=== PATIENT | female | born 1965 | race Caucasian/White ===

== ENCOUNTER → 2018-03-23 17:30 | Outpatient (CLI) | payer OTHER, SELFPAY ==
--- NOTE | 2018-03-23 17:28 | BI_ITS ---
MAMMOGRAPHY - BILATERAL SCREENING REASON FOR EXAM: Female, 52 years old. Routine annual screening examination. PERTINENT HISTORY: Sister with breast cancer. Mother with breast cancer. TECHNIQUE: Digital bilateral breast verena (3D mammographic acquisition) in the CC and MLO projections. 2-D mediolateral oblique (MLO) and craniocaudad (CC) views of both breasts were obtained. CAD: Full Field Digital Mammography with Computer Added Detection was performed. COMPARISON: Comparison is made with prior abdomen examination dated February 13, 2017. FINDINGS: Breast Composition: There are scattered areas of fibroglandular density. There are no dominant masses or suspicious calcifications. No other significant abnormalities are identified. There has been no significant change since the prior study. BI/SCREENING MAMM (CAD), BILAT IMPRESSION: Stable bilateral screening mammogram. Yearly follow-up mammogram recommended. (A) ASSESSMENT CATEGORY: BIRADS Category 1: Negative. A letter regarding these results will be sent to the patient by the facility within 30 days. Approximately 10% of breast cancers are not detected by mammography. A normal mammogram should not delay biopsy of a clinically suspicious abnormality. [id number] Electronically Signed: Adriel Bailey MD at 14:13 EDT Tel [phone], Service support ,
== END ==
DX: Z12.31 Encounter for screening mammogram for malignant neoplasm of breast (principal)
CPT/HCPCS: 77063; 77067

== ENCOUNTER → 2019-09-29 08:17 | Outpatient (CLI) | payer OTHER, SELFPAY ==
--- NOTE | 2019-09-29 08:22 | BI_ITS ---
MAMMOGRAPHY - BILATERAL SCREENING REASON FOR EXAM: Female, 53 years old. Routine annual screening examination. PERTINENT HISTORY: Sister with breast cancer. Mother with breast cancer. TECHNIQUE: Digital bilateral breast mikael (3D mammographic acquisition) in the CC and MLO projections. 2-D mediolateral oblique (MLO) and craniocaudad (CC) views of both breasts were obtained. CAD: Full Field Digital Mammography with Computer Added Detection was performed. COMPARISON: Comparison is made with prior examination dated March 23, 2018. FINDINGS: Breast Composition: There are scattered areas of fibroglandular density. There are no dominant masses or suspicious calcifications. No other significant abnormalities are identified. There has been no significant change since the prior study. BI/SCREEN MAMM (CAD) W/MIKAEL BILAT IMPRESSION: Stable bilateral screening mammogram. Yearly follow-up mammogram recommended. (A) ASSESSMENT CATEGORY: BIRADS Category 1: Negative. A letter regarding these results will be sent to the patient by the facility within 30 days. Approximately 10% of breast cancers are not detected by mammography. A normal mammogram should not delay biopsy of a clinically suspicious abnormality. [id number] Electronically Signed: Adriel Bailey, at 10:23 EDT , Service support ,
== END ==
DX: Z12.31 Encounter for screening mammogram for malignant neoplasm of breast (principal)
CPT/HCPCS: 77063; 77067

== ENCOUNTER 2021-06-21 12:55 | Outpatient (CLI) | payer BC, SELFPAY ==
--- NOTE | 2021-06-21 12:59 | BI_ITS ---
MAMMOGRAPHY - BILATERAL SCREENING REASON FOR EXAM: Female, 55 years old. Routine annual screening examination. PERTINENT HISTORY: Sister with breast cancer. Mother with breast cancer. TECHNIQUE: Digital bilateral breast mikael (3D mammographic acquisition) in the CC and MLO projections. 2-D mediolateral oblique (MLO) and craniocaudad (CC) views of both breasts were obtained. CAD: Full Field Digital Mammography with Computer Added Detection was performed. COMPARISON: Comparison is made with prior study dated 09/29/2019 and 03/23/2018. FINDINGS: Breast Composition: There are scattered areas of fibroglandular density. There are no dominant masses or suspicious calcifications. No other significant abnormalities are identified. There has been no significant change since the prior study. BI/SCRN MAMM (CAD)W/MIKAEL BILAT IMPRESSION: Stable bilateral screening mammogram. Yearly follow-up mammogram recommended. (A) ASSESSMENT CATEGORY: BIRADS Category 1: Negative. A letter regarding these results will be sent to the patient by the facility within 30 days. Approximately 10% of breast cancers are not detected by mammography. A normal mammogram should not delay biopsy of a clinically suspicious abnormality. [id number] Electronically Signed: Adriel Bailey MD at 14:59 EST ,
== END 2021-06-21 23:59 | disposition home or self-care (01) ==
PROVIDERS: Visit Provider Family Medicine
DX: Z12.31 Encounter for screening mammogram for malignant neoplasm of breast (principal)
CPT/HCPCS: 77063; 77067

== ENCOUNTER → 2023-01-20 | Outpatient (CLI) | payer OTHER, SELFPAY ==
--- NOTE | 2023-01-20 16:07 | BI_ITS ---
MAMMOGRAPHY - BILATERAL SCREENING REASON FOR EXAM: Female, 57 years old. Routine annual screening examination. PERTINENT HISTORY: Sister with breast cancer. Mother with breast cancer. TECHNIQUE: Digital bilateral breast mikael (3D mammographic acquisition) in the CC and MLO projections. 2-D mediolateral oblique (MLO) and craniocaudad (CC) views of both breasts were obtained. CAD: Full Field Digital Mammography with Computer Added Detection was performed. COMPARISON: Screening mammogram from 06/21/2021, 09/29/2019. FINDINGS: Breast Composition: The breasts are heterogeneously dense, which may obscure small masses. There are no dominant masses or suspicious calcifications. No other significant abnormalities are identified. There has been no significant change since the prior study. BI/SCRN MAMM (CAD)W/MIKAEL BILAT IMPRESSION: Stable bilateral screening mammogram. Yearly follow-up mammogram recommended. (A) ASSESSMENT CATEGORY: BIRADS Category 1: Negative. A letter regarding these results will be sent to the patient by the facility within 30 days. Approximately 10% of breast cancers are not detected by mammography. A normal mammogram should not delay biopsy of a clinically suspicious abnormality. Electronically Signed: Steve Will DO at 10:00 EDT ,
== END | disposition home or self-care (01) ==
LOC: OPBI 16:00
DX: Z12.31 Encounter for screening mammogram for malignant neoplasm of breast (principal)
CPT/HCPCS: 77063; 77067

== ENCOUNTER → 2025-02-23 | Outpatient (CLI) | payer BC, SELFPAY ==
--- NOTE | 2025-02-23 16:49 | BI_ITS ---
EXAM: SCRN MAMM (CAD)W/MIKAEL BILAT DATE: 02/23/2025 CLINICAL HISTORY: F, Age 59 y/o , SCREEN TECHNIQUE: Procedure Code: [id number] Modality: MG Procedure: SCRN MAMM (CAD)W/MIKAEL BILAT COMPARISON: Prior exam(s) dated 01/20/2023, 06/21/2021, 09/29/2019. FINDINGS: TISSUE DENSITY: There are scattered areas of fibroglandular density. Bilateral Breast Mammographic Findings: No significant masses, calcifications or other abnormalities are identified. BI/SCRN MAMM (CAD)W/MIKAEL BILAT IMPRESSION: There is no mammographic evidence of malignancy. OVERALL FINAL ASSESSMENT BI-RADS 1: NEGATIVE. RECOMMENDATION: Routine annual follow-up in 1 Year Additional Recommendation none A letter with findings and recommendations will be mailed to the patient. Reading Location: [id number]
--- NOTE | 2025-02-23 16:49 | BI_ITS ---
EXAM: SCRN MAMM (CAD)W/MIKAEL BILAT DATE: 02/23/2025 CLINICAL HISTORY: F, Age 59 y/o , SCREEN TECHNIQUE: Procedure Code: [id number] Modality: MG Procedure: SCRN MAMM (CAD)W/MIKAEL BILAT COMPARISON: Prior exam(s) dated 01/20/2023, 06/21/2021, 09/29/2019. FINDINGS: TISSUE DENSITY: There are scattered areas of fibroglandular density. Bilateral Breast Mammographic Findings: No significant masses, calcifications or other abnormalities are identified. BI/SCRN MAMM (CAD)W/MIKAEL BILAT IMPRESSION: There is no mammographic evidence of malignancy. OVERALL FINAL ASSESSMENT BI-RADS 1: NEGATIVE. RECOMMENDATION: Routine annual follow-up in 1 Year Additional Recommendation none A letter with findings and recommendations will be mailed to the patient. Reading Location: [id number]
--- OUTSIDE RECORDS SUMMARY | 2025-02-24 07:13 | XMS RPT_ITS | CCD ---
Author Organization [facility] Informat ion Partnership [employer]GG [employer] [facility] Care Team Providers Care Hydrogenation Operator Name Role Phone Emma Buchanan Primary Care Physician [phone] Emma Buchanan DO Primary Care Provider UnaMIRNA Maguire Attending Unavailable CLEOPATRA BOWIE Attending Unavailable Tyree Sheppard MD Primary Care Provider Cheko Way Attending Unavailable Gabbie Ayala Attending Unavailable TERESITA1 Referring Unavailable TERESITA1 Attending Unavailable TERESITA1 Primary Care Unavailable Allergies Allergy Classification Reported Allergen(s) Allergy Type Date of Onset Reaction(s) Facility (1 source) Clindamycin; Translations: [clindamycin] Drug Allergy [facility] (9 sources) Doxycycline; Translations: [doxycycline] Drug Allergy Allergy - specialty (qualifier value), Hives, Photosensitivity [facility] (9 sources) Erythromycin; Translations: [erythromycin] Drug Allergy Hives [facility] (9 sources) Sulfamethoxazole / Trimethoprim; Translations: [sulfamethoxazole-t rimethoprim] Drug Allergy Hives, Photosensitivity, Swelling [facility] (1 source) [place] Propensity to adverse reactions to substance [facility] (8 sources) Nitrofurantoin Drug Allergy Hives [facility] (8 sources) orange allergenic extract Drug Allergy 972 Anaphylaxis [facility] (1 source) Doxycycline Drug Allergy [facility] (1 source) Erythromycin Drug Allergy [facility] (1 source) Bozeman juice Drug allergy (disorder) [facility] (1 source) Sulfamethoxazole Drug Allergy [facility] (1 source) Trimethoprim Drug Allergy [facility] Medications Current Medications Medication Drug Class(es) Dates Sig (Normalized) Sig (Original) Albuterol (1 source) beta2-Adrenergic Agonist Start: 05-31-2019 take 2.5 mg by inhalation every six hours for wheezing albuterol 0.083% Inh Jolanta 3 mL 2.5 mg, 3 mL, Inhalation, q6hr for wheezing, 25 EA, Refill(s) 0, [facility] Start Date: 05/31/19 Status: Ordered albuterol 90 mcg/inh inhalation powder (1 source) Start: 05-28-2019 take 2 puff(s) by inhalation every four hours albuterol 90 mcg/inh inhalation powder See Instructions, Refill(s) 0, 2 puff(s) Inhalation q4hr Start Date: 05/28/19 Status: Ordered atenolol 25 mg oral tablet (9 sources) beta-Adrenergic Lynda Start: 08-09-2024 take 1 tablet by mouth once daily atenolol (Tenormin) 25 MG tablet Indications: High-renin essential hypertension (CMS/HCC) Take 1 tablet (25 mg) by mouth Daily 90 tablet 3 08/09/2024 Active Start: 01-08-2023 take 1 tablet by prudence th in the morning atenolol (Tenormin) 25 MG tablet Indications: High-renin essential hypertension (CMS/HCC) Take 1 tablet (25 mg) by mouth in the morning. 90 tablet 3 01/08/2023 Active Start: 01-16-2011 take 12.5 mg by mout h once daily atenolol 12.5 mg, Oral, Daily, Refills(s) 0 Start Date: 01/16/11 Status: Ordered atorvastatin 20 mg oral tablet (9 sources) HMG-CoA Reductase Inhibitor Start: 08-09-2024 take 1 tablet by mouth once daily atorvastatin (Lipitor) 20 MG tablet Indications: Mixed hyperlipidemia (CMS/HCC) Take 1 tablet (20 mg) by mouth Daily 90 tablet 3 08/09/2024 Active Start: 01-08-2023 End: 06-13-2024 take 1 tablet by mouth once daily atorvastatin (Lipitor) 20 MG tablet Indications: Mixed hyperlipidemia (CMS/HCC) Take 1 tablet (20 mg) by mouth Daily 90 tablet 3 06/13/2024 Active azithromycin 250 mg oral tablet (8 sources) Macrolide Antimicrobial Start: 05-06-2024 azithromycin (Zithromax) 250 MG tablet Indications: Non-recurrent acute suppurative otitis media of right ear without spontaneous rupture of tympanic membrane Take 2 tabs PO x 1 day then 1 tab PO daily x 4 days 6 tablet 05/06/2024 Active microencapsulated potassium chloride 10 meq extended release oral tablet (2 sources) Start: 08-11-2024 potassium chlo ride CR (Klor-Con M10) 10 MEQ ER tablet Indications: Hypokalemia Take 2 tablets (20 mEq) by mouth Daily Do not crush or chew. 180 tablet 3 08/11/2024 Active Start: 01-16-2011 take 1 tablet by prudence th once daily potassium chloride 10 mEq ER Tab 10 mEq = 1 tab(s), Oral, Daily, tab(s), Refills(s) 0 Start Date: 01/16/11 Status: Ordered spironolactone 50 mg oral tablet (9 sources) Aldosterone Antagonist Start: 08-09-2024 take 3 tablets by mouth once daily spironolactone (Aldactone) 50 MG tablet Indications: Body mass index (BMI) 25.0-25.9, adult Take 3 tablets (150 mg) by mouth Daily 270 tablet 3 08/09/2024 Active Start: 01-08-2023 take 3 tablets by mo uth in the morning spironolactone (Aldactone) 50 MG tablet Indications: Body mass index (BMI) 25.0-25.9, adult Take 3 tablets (150 mg) by mouth in the morning. 270 tablet 3 01/08/2023 Active Start: 04-17-2011 take 150 mg by mouth once daily spironolactone 150 mg, Oral, Daily, Refills(s) 0 Start Date: 04/17/11 Status: Ordered Completed/Discontinued Medications Medication Drug Class(es) Dates Sig (Normalized) Sig (Original) amoxicillin 500 mg oral capsule (1 source) Penicillin-class Antibacterial Start: 10-15-2018 End: 10-25-2018 take 1000 mg by mouth twice daily Amoxicillin Discontinued 1000 MG PO TWICE A DAY 40 October 15, 2018 12:00am October 25, 2018 12:07am Problems Active Problems Problem Classification Problem Date Documented Date Episodic/Chronic Administrative/socia l admission (2 sources) Patient encounter status; Translations: [Person consulting for explanation of examination or test findings] 07-20-2024 Episodic Conduction disorders (1 source) 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 Disorders of lipid metabolism (3 sources) Mixed hyperlipidemia; Translations: [Mixed hyperlipidemia] 05-06-2024 Chronic Essential hypertension (10 sources) High-renin essential hypertension; Translations: [Essential (primary) hypertension] Onset: 6 05-06-2024 Chronic Fluid and electrolyte disorders (1 source) Hypokalemia; Translations: [Hypokalemia] 08-11-2024 Episodic Other endocrine disorders (1 source) Hyperaldosteronism Onset: 4 08-12-2013 Chronic Other screening for suspected conditions (not mental disorders or infectious disease) (20 sources) Cancer cervix screening status; Translations: [Encounter for screening for malignant neoplasm of cervix] Onset: 4 05-05-2024 Episodic Otitis media and related conditions (3 sources) Otitis media; Translations: [Otitis media, unspecified, unspecified ear] 10-15-2018 Episodic Past or Other Problems Problem Classification Problem Date Documented Date Episodic/Chronic Malaise and fatigue (1 source) Malaise Onset: 10-02-2012 08-12-2013 Episodic Other skin disorders (1 source) Sweating Onset: 10-02-2012 10-02-2012 Episodic Syncope (1 source) Syncope Onset: 10-02-2012 08-12-2013 Episodic Unclassified (1 source) 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 05-17-2024 Results Test Name Value Interpretation Reference Range Facility Urgent Care Visit Reporton 0 06-08-2024 Urgent Care Visit Report [facility] 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: No Is patient in pain?: No Allergies doxycycline Allergy (Mild, Verified 06/08/24 17:39) Rash erythromycin base Allergy (Mild, Verified 06/08/24 17:39) Rash orange juice Allergy (Mild, Verified 06/08/24 17:39) Hives sulfamethoxazole (From Bactrim) Allergy (Mild, Verified 06/08/24 17:39) Rash trimethoprim (From Bactrim) Allergy (Mild, Verified 06/08/24 17:39) Rash Medications ???Medication ???Instructions ???Recorded ???Confirmed ???Type albuterol sulfate 90 mcg/actuation 1 - 2 puff inhalation Q4 PRN 06/08/24 06/08/24 History aerosol inhaler dyspnea amoxicillin 875 mg-potassium 1 tab PO BID #28 tabs 06/08/24 06/08/24 Rx clavulanate 125 mg tablet atenolol 25 mg tablet 25 mg PO QAM 06/08/24 06/08/24 History atorvastatin 20 mg tablet 20 mg PO QAM 06/08/24 06/08/24 History benzonatate 200 mg capsule 200 mg PO TID PRN cough #20 caps 06/08/24 06/08/24 Rx potassium chloride 10 mEq 20 meq PO QAM 06/08/24 06/08/24 History tablet,extended release(part/cryst) spironolactone 50 mg tablet mg PO 06/08/24 06/08/24 History Is last menstrual period known: No Post menopausal: Yes Patient : No Have you fallen in the past year?: No Nurse's Note: cough, congestion, worsening mucus x 5 days. denies fever, SONG, BA HPI HPI Chief Complaint: cough, congestion Details: SHEY BORRERO, is a 58 F who presents to the office today for initial evaluation at the [facility] for approximately 5-day history of progressively worsening left facial pressure/congestion with purulent postnasal drip/cough and bilateral ear pressure - though her symptoms of actually been waxing waning over the last month and a half or so. No complaints of fever, chills, myalgias, fatigue, runny nose, or nausea/vomiting/michael rrhea. No complaints of chest pain/shortness of breath/dyspnea on exertion. No close contacts with similar complaints. No other associated symptoms and no other alleviating/aggrava ting factors. ROS Const Constitutional: No other (as above) Exam Const General: cooperative, healthy appearing and no acute distress Nutritional Appearance: average body habitus Orientation: alert, awake and oriented x3 HENMT Head: normal to inspection Ears: hearing grossly normal bilaterally, external ears normal, TM's normal bilaterally and EAC's normal Nose: external nose normal, nares normal, septum normal and no nasal discharge Face and sinus: normal facial exam, sinuses nontender (Though left maxillary fullness to palpation) and face symmetric Mouth: oral mucosae normal, lip normal, tongue normal and oropharynx normal Throat: posterior oropharynx normal, tonsils normal, uvula midline and postnasal drainage (Purulent) Eyes General: appearance normal, both eyes and all related structures Neck Neck: normal visual inspection, full ROM, no meningeal signs, supple and lymphadenopathy (Bilateral anterior cervical lymph node swelling/tender to palpation) Neck mass: No Thyroid: thyroid normal Chest Chest palpation inspection: normal inspection of the chest Resp Effort Inspection: normal respiratory effort and able to speak in complete sentences with dry nonproductive cough Auscultation: Bilateral: Clear to Auscultation Cardio Palpation: normal PMI Rate: regular rate Rhythm: regular rhythm Heart Sounds: S1 normal, S2 normal, no gallops, no murmurs and no rubs Pulses: radial pulses present GI Inspection: normal to inspection Skin General: no rashes or lesions noted Neuro General: patient alert, patient awake and patient oriented x3 Cognition: normal cognition Speech: speech normal Psych Appearance: grossly normal Mental Status: mental status grossly normal Mood: congruent mood Affect: normal affect Speech and Movement: speech and movement normal Attitude: cooperative Diagnoses Acute maxillary sinusitis, unspecified J01.00 Assessment and Plan Assessment and Plan (1) Acute maxillary sinusitis, unspecified: Status: Acute Plan: - w/ cough Augmentin and benzonatate as prescribed today. Supportive measures as instructed today. Follow-up with PCP in 3 to 5 days should symptoms not improve, sooner (more content not included)... Normal [facility] HPV GENOTYPES 16,18/45on HPV 16 RNA Not detected Normal NOT DETECTED [facility] Comment on above: Performed By: #### 9 182, [id number] #### [facility] [address], [address] [place] [address] Global Human Resources Director: Dallas Sanchez MD HPV 18/45 RNA Not detected Normal NOT DETECTED [facility] Comment on above: Result Comment: Meth odology: Log Cooker Mediated Amplification Cervical sources are required for HPV testing. If a vaginal source from a patient who has had a total hysterectomy with removal of cervix was submitted, please contact the testing laboratory for alternative testing options. Performed By: #### 9 182, [id number] #### [facility] [address], [address] [place] [address] Global Human Resources Director: Dallas Sanchez MD THINPREP TIS PAP AND HPV mRN A E6/E7 WITH REFLEX TO HPV 16,18/45on 05-11-2024 CLINICAL INFORMATION: Normal [facility] Comment on above: Order Comment: FASTI NG:UNKNOWN FASTING: UNKNOWN Result Comment: BABS LEBLANC Performed By: #### 9 182, [id number] #### [facility] [address], [address] [place] [address] Global Human Resources Director: Dallas Sanchez MD COMMENT Normal [facility] Comment on above: Order Comment: FASTI NG:UNKNOWN FASTING: UNKNOWN Result Comment: EXPL ANATORY NOTE: The Pap is a screening test for cervical cancer. It is not a diagnostic test and is subject to false negative and false positive results. It is most reliable when a satisfactory sample, regularly obtained, is submitted with relevant clinical findings and history, and when the Pap result is evaluated along with historic and current clinical information. Performed By: #### 9 182, [id number] #### [facility] [place] [address] Global Human Resources Director: Dallas Sanchez MD COMMENT: Normal [facility] Comment on above: Order Comment: FASTI NG:UNKNOWN FASTING: UNKNOWN Result Comment: This Pap test has been evaluated with computer assisted technology. Performed By: #### 9 182, [id number] #### [facility] [place] [address] Global Human Resources Director: Dallas Sanchez MD BUCKLE STRAP DRUM OPERATOR: Normal [facility] Comment on above: Order Comment: FASTI NG:UNKNOWN FASTING: UNKNOWN Result Comment: DAA, CT(ASCP) CT Screening Location: [place] [address] Performed By: #### 9 182, [id number] #### [facility] [place] [address] Global Human Resources Director: Dallas Sanchez MD HPV mRNA E6/E7 Detected Abnormal Not Detected [facility] Comment on above: Order Comment: FASTI NG:UNKNOWN FASTING: UNKNOWN Result Comment: Meth odology: Log Cooker-Mediated Amplification This assay detects E6/E7 viral messenger RNA (mRNA) from 14 high-risk HPV types (16,18,31,33,35,39,45,51,52,56,58,59,66,68). Cervical sources are required for HPV testing. If a vaginal source from a patient who has had a total hysterectomy with removal of cervix was submitted, please contact the testing laboratory for alternative testing options. For additional information, please refer to http://education.Freedcamp/faq/NJO294f4 (This link if provided for information/ educational purposes only.) Performed By: #### 9 182, [id number] #### [facility] [place] [address] Global Human Resources Director: Dallas Sanchez MD INFECTION: Normal [facility] Comment on above: Order Comment: FASTI NG:UNKNOWN FASTING: UNKNOWN Result Comment: Shif t in vaginal lamine suggestive of bacterial vaginosis. Performed By: #### 9 182, [id number] #### [facility] [place] [address] Global Human Resources Director: Dallas Sanchez MD INTERPRETATION/RESUL T: Normal [facility] Comment on above: Order Comment: FASTI NG:UNKNOWN FASTING: UNKNOWN Result Comment: Cyto logy Results: Negative for intraepithelial lesion or malignancy. Performed By: #### 9 1825, 16424 #### [facility] [address], [address] [place] [address] Global Human Resources Director: Dallas Sanchez MD LMP: Normal [facility] Comment on above: Order Comment: FASTI NG:UNKNOWN FASTING: UNKNOWN Result Comment: N/G Performed By: #### 9 1825, [id number] #### [facility] [address], [address] [place] [address] Global Human Resources Director: Dallas Sanchez MD PREV. BX: Normal [facility] Comment on above: Order Comment: FASTI NG:UNKNOWN FASTING: UNKNOWN Result Comment: N/G Performed By: #### 9 1825, [id number] #### [facility] of [address], [address] [place] [address] Global Human Resources Director: Dallas Sanchez MD PREV. PAP: Normal [facility] Comment on above: Order Comment: FASTI NG:UNKNOWN FASTING: UNKNOWN Result Comment: N/G Performed By: #### 9 1825, 79711 #### [facility] [address], [address] [place] [address] Global Human Resources Director: Dallas Sanchez MD REVIEW BUCKLE STRAP DRUM OPERATOR: Normal [facility] Comment on above: Order Comment: FASTI NG:UNKNOWN FASTING: UNKNOWN Result Comment: LLT, CT(ASCP) CT screening location: [place] [address]. Performed By: #### 9 1825, 91141 #### [facility] [address], [address] [place] [address] Global Human Resources Director: Dallas Sanchez MD SOURCE: Normal [facility] Comment on above: Order Comment: FASTI NG:UNKNOWN FASTING: UNKNOWN Result Comment: Vagi na, Cervix Performed By: #### 9 1825, 20121 #### [facility] [address], [address] [place] [address] Global Human Resources Director: Dallas Sanchez MD STATEMENT OF ADEQUACY: Normal [facility] Comment on above: Order Comment: FASTI NG:UNKNOWN FASTING: UNKNOWN Result Comment: Sati sfactory for evaluation. Endocervical/transformation zone component present. Performed By: #### 9 1826, [id number] #### [facility] [address], [address] [place] [address] Global Human Resources Director: Dallas Sanchez MD Coding Summary.on 10-03-2021 Coding Summary. [id number] MSc5eAo+PGhlYWQ+PE1 CCTHfM54uqKZnjF0HP5 tDWG2FDPFSKKPRKV5VY N9cfPX5FJpcR3AuqnUr GjqhrCCqZF80FMv3WOM 4rFnmDJmxvW2nwXLeE1 e2XuTeDQ20jM92UHhyT PHbJvA2WcYzpnbjmMQc G6euQeBgmTZzLby+PHR hYmxlIHdpZHRoPScxMD TmCqSptZtjLU3kVv8nH GVyLWNvbGxhcHNlOiBj n1ifEMQaRYsiAX7fhNa qD4MtmFR9RHDuu9g8Hw 48dHI+MWLoBJD9qLspF Pxcd645HcWdx6qgRQU4 tACxJMgqPEN8F76eb8M 6KILqIYBeGGX3fYM1zW 1eaTrzagyyA6SmjHSjF fW1SYU9gJTsbL1hoFuw crkqwA6qLoc+P96LAO1 NUKZRXH9LEyw8H2WwRl wvdHI+PM76AIRsNX32e MQulAAgb7lmhFr4ZqCy FZWlEHT6dShpRCqfx9I kKKLlK99spFXtt5F5KY MgdXzrgFGmBfTozBL5p O1fSRjbrcrjn9cvcguz Rpxeg0kcjt57zH62N23 iJKbpAQVoMDP7YZWkYF FdmHtvcj4axE1lDg8+I Ezjo2ako9wspWm1VdCv NFVmlxBkbSkrCCC4s6S vJb08L8OyeJila7ClLh i1yb24mFIed4V6qQT9L LjxWIDtoC6pMDbdAnW5 FFCzHaFbfK13vPZfKPk mZr8glLyuhFllZV2nLR OuqtzfGDMjwT9hERHdr GNqvHrqHK6pDQXctojw b766GmRqQJH4HTDpwEA vZ7VexG7fViRiWESwRL RvH3LtySIvXXuqN061O IciDeK4SZHlheXdU0Hx DMWphRbvHuQ2h2F3Is7 Ba6EsydpvTXB8NGunZF Z7XaQ3NsRiKhV1V5IgE zk2KHIcjDmwGT2cP5Vl BUHixzqkatqbmAD2HCA bMULrcO70aTTmVFcxIf 5jv3O3f737NOHuWIMtz V01Bk1vuWbkSYRyaOAQ hR6uhqsas6oauntzVrT wRAHvWIp4WDp5ZMFjvI azYyCvPZW9AbE3VTM1y BBkqX3ypJvheoqayY5x Oyc+T84obC9vSUL3BEP 6nmnrQXDnhaTzZB21GK 72Q8IlIkrasYQqaUQ+P JZayfOyyOpgDY4xTdUw q6bar4MlWEmxD1VrWGC uAPznHxa3POAeBYL2aG Q6sA7sYWAhGJmew6J3a XH7W4EqdcMlsv0mu5sy NAYrEXtfF10asSPsh8S 6PTFkoKS0SAQjwWgwLx SgxQ65Otr+PGNvbGdyb 8AwMhmtp0gdj7fvhQq1 IjMwJSIgdmFsaWduPSJ 6b4BkDa06K70vALegDA RoPSIxNSUiIHZhbGlnb b3otF1wLs2+PGNvbCB3 cLB7iA8hSZKlQuH5HDu gR871PqIomMAiGthjj2 nvd5hpxEe8XtLwPOZrz aGyvXpkMIY1c7WiHj85 X45dVCseYIGeKGDcJTW mUIDrlLncmi0kwO4rMd 8+CB8hq5arix32rG13i HI+DBLlCDB0eObcQHjq HEVvsT4bRZvjCxD0IMK oDpXjwD59sTAuRBuzLz 3gyPeykPlkYL5nFHBol cprx019RoLfl4hgLORx oHKaPPzaEEI8A43ym9P 2YICeYYQgXPC5jLL1nG 1hbGlnbjogbGVmdDsgd nUgrNlxGNllBEakU770 IHRvcDsnPlBhdGllbnQ kBhZtAXx8Y2PnRyv9LP CgpYebUK9aaOVzWXtsK h6lkEhxtJlxTB3jLZGf bataw084EhTkv3usWTL goOQtZZewCGD3Z11jx5 C5VKUoEEFjJOH0gCY9g D3crLyirvjmwYFigRwf wlMrgCxuGPkvWMkiY72 6IHRvcDsnPkJpcnRoIE SjzOR5AV19FM68lJIfr 5R6vVW8O2KxARRyqzhb opxseSM5VPKpIRYzeO8 4Ts0gaFowDs0oAXRyFT G8PYWxaTNpY6NdsO9fK gXhSYQdCZExT7EgbMEq PTylS644OJbuPvB6RSR txnIvY5PcDIVusOyiPn P6r7Y5Jo7WD1C7AU72C F57zKYqk1Z0pUE1Z1Cr PIXqdiekdcvwtJU1DDL lPIPocP76Fa5emFqcIh 7dPFXpVCY5ENSyzOObU 6YzzV7hCuBbHRKrBBVs E4DxfYGpSWiuX009WUj dQhM5QDHwokHmE7VoWZ VhcHgbKfV3a1W4Xb2XQ Yq4DV25SP17zFLsy3R9 tIY9P1WaHSImdwltvsx nsZC8FMGdYECitI95Yg 7sqVowWv5hVOEfKST5Y RYfrZPmY3GvrF9eCpTp IMQuHMYjU5AehECsIHg bT895MMusVlZ4ZYCsnh XxI2JwRINmaBwwLqG2i 6E1Ag8XWXWnTY93JNW5 kSQ0CH69SP50K2DwNyk vdGFibGU+PHRhYmxlIH dpZHRoPScxMDAlJyBzd ZxqGW5hXz8sBSDeGZLc oFohsBBbCmUbn8ooSJM qCGfgFY9bhWzxS7WilJ P2PBMkj9f8Yj00R10zQ 3JvdXA+DNUtxLW6pST5 aZ6aPnTlHxU4WOfxQ10 4SoBgjWWsWnldt6kgb4 mkeVz9UmQ2NRJqfmJuf KtpIPG5m5KiTi22V03h IHdpZHRoPSIxNSUiIHZ qkDpjib2ibU3dCu7+PG NulUP2lTN2rY1tXvBeC xF9QSciT684CvCckKEs Lidzp6zxn2kueHj1XbN bZXJysyOvsGpgEZM4d4 OhUm90N7EyxGdjt4UwC jt6tm96bHLcf2K0kFP2 Z2BrVGWhwbrrxUMadJj rQU3wEHCceazdGHUewK 0sOJSfR1m4BtSpXmN6A TehG0OozhW5KWPmgRIl NRzqJAG3D48ol9Q2NXN oDXGrUJM0bBQ4eD4cpF lnbjogbGVmdDsgdmVyd WpxLJmmHFieV743BPWa qBbrAQSoaX5fJLCuqZJ dxSbtTA6zPGQwmkjxOw tFTExFWSwgQlJFTkRBI Zc6G1EmXyo7OKSpwYgj HQ1svRTjODfwXl5rxCt fxTazTY0cBZTlwjfaBO ZitR9zVWDtfRBniEdeX R8qIIHncrosz202ElAx HRR3BTXrpJIvK1LyyL8 eRiBlBEDdYXGiY7QfoH JaTLmvS504QJzlIqV4W AMmbiPsL9OhJEPojRic TdA8h2R9Zu5xOv9qDE5 cWQT8DA94AR19cMBeg2 C8mGF2B1MwNETrvywta hwcwSG0XYHwDFSxxK76 lAVgILhoQe3lf3R0j09 0HGLyXDYfzN09Dk5qsI ahHBMkxOVZjV7albzsl 1ogbckpReOoZOHiEOd7 VVu0NGTwpRgbDcNzEFT 5IiQ0MQG9uKZgzQ6aiX dgwcsamK9xVsa+NTcgW JOimtI6Q4MkQzw6FQVm sBacMC3zlXElGQvyWp8 moMoerTrdBT8xYFGmxe xpZNPxbI4rYJTsyXQeu YhoHI9xIXMrkauaa585 LkDeEFO4ZXSqlVGmD1F fjY2eKqYcEVKpJMHeG0 YnoOWgNAhfR231CIbvY bN3GAVditKzI5UpWGFo wVerAhH9d8N7Ko8SNX1 udXW4B2LjJof0ACBmwG nwYQ6tyBNsKKlfLu2ps QhrnWfxHI0rOBPizjyd QAUleL4pMWTteQHqwRf tDN5qZNEayxfky074Iu XcSYH8NPReaFNmB7Qif J1uKnNmQGRwIEAjI6Hf pLMtBFqrB937CSdsGnH 1RCAyjoYrX9IqSGZhcE wxObK9a1W8Uq4KeSDiY PEaDT51TE85FZ80W1Pb PjwvdGFibGU+PHRhYmx lIHdpZHRoPScxMDAlJy MxsHknZS6bWi4sXBZjC DTouBpasETrJxIla9ag PSHrPNggFG5gbDfmG5H jaXT1DOHif0p7Yt32S0 3oO5IluXL+GCStuZJ5z BI9dD2kUtJiFeL6HOvf A878UaYibLGrDplth6r kp4odnTx3XhKrCXJbpb MvkGmjMJF3p2AuDp20K 29sIHdpZHRoPSIyMCUi ZANvxUihqu8bjP3sJf5 +ZHJhfHS1iFW1nY7tEn RiCaJ7OMsfI670ExTby PSbQqjgJ14aN8IrgRY+ MZSpIcd5BIGdjRdhBS7 jtCJrJVurBj2eNEJ9Yz DjRjYsYHslZ9SzBWXpr nqdsaetrOR5LWJjUGBl yO51Qr4hfWyrSr0bIWG qOHG3NHJfmVNbQ4EmcY 3eSpCeACAzQGWyE1Gxj DLeYTalJ851DDdnCrP2 VCLflqIxY1HpOESkgOf mOyW7k5M9Ma6GwWhibN NxJG5gHwNdGVc2J9NnV qd2IIAwqYxmUR8abGEk AYzeQg7mjTlqxRydOA5 fPNVuhkcuq652IdBll6 fyILXpuJOtDChkCFO5C 89ee4S3YUYsPKEkPTM6 oLE1tS9ahWmnkjrpvOU mdDsgdmVydGljYWwtYW awN610MVVogTdaWnKCJ ij1M6GgVye3TFYloSow JR5pxFFqZXsqCl4nnUa ouGgoTX6mUKUfnhcbn0 05JcTwm0ioCSKxzYDjP SpxFRY9U38gk7V5BSEc JPHbIUU6dSY8wN8knSh nbjogbGVmdDsgdmVydG zaMLmhKBnxB002VJGpn YrpXf7GQsx5F0MhJvn2 PGMyvDyuEV8vrHHqKDj cPd6czHfvuQclQG4dPE Twymquq672WoIiv7lbL DOsdDGwRWkzGVC3C65d e7D7FRPwJYTuQKJ0zMD 3sR9zoIwypalyzGFsiA sgdmVydGljYWwtYWxpZ 246IHRvcDsnPlBheWVy OjwvdGQ+CD06km14Q9W hNyinJxs0YMArCXU0cW X3aI7mMZLtXQixh8Q8f NJ3D2XajeQiij5ym2qr YXBz (more content not included)... Normal [facility] CHEMISTRYOrdered By: SYSTEM SYSTEM on 09-24-2021 Albumin [Mass/Vol] 4.3 g/dL Normal 3.3 - 5.0 gm/dL [facility] Albumin/Globulin [Mass ratio] 1.6 {ratio} Normal 1.1 - 2.2 [facility] ALP [Catalytic activity/Vol] 52 [iU]/d Normal 21 - 98 Int._Unit/L [facility] ALT No additional P-5'-P [Catalytic activity/Vol] 25 [iU]/d Normal 6 - 46 Int._Unit/L [facility] Anion gap [Moles/Vol] 11 mmol/L Normal 6 - 16 mEq/L [facility] AST [Catalytic activity/Vol] 22 [iU]/d Normal 5 - 43 Int._Unit/L [facility] Bilirubin [Mass/Vol] 1.3 mg/dL High 0.0 - 1 .1 mg/dL [facility] Calcium [Mass/Vol] 9.1 mg/dL Normal 8.9 - 11. 1 mg/dL [facility] Chloride [Moles/Vol] 102 mmol/L Normal 101 - 1 11 mmol/L [facility] Cholesterol [Mass/Vol] 245 mg/dL High 120 - 200 mg/dL [facility] Cholesterol in HDL [Mass/Vol] 50 mg/dL Invalid Interpretation Code [facility] Cholesterol in LDL [Mass/Vol] 174 mg/dL High <=129mg/dL [facility] Cholesterol in VLDL [Mass/Vol] 18 mg/dL Normal 7 - 40 mg/dL [facility] CO2 [Moles/Vol] 26 mmol/L Normal 21 - 31 mmol/L [facility] Creatinine [Mass/Vol] 0.6 mg/dL Normal 0.5 - 1.3 mg/dL FT Remisol GFR/1.73 sq M.predicted among blacks MDRD (S/P/Bld) [Vol rate/Area] mL/min/1.73 m2 Normal >=59mL/min/1. 73 m2 [facility] [place] [facility] Chem S GFR/1.73 sq M.predicted among non-blacks MDRD (S/P/Bld) [Vol rate/Area] mL/min/1.73 m2 Normal >=59mL/min/1. 73 m2 [facility] [place] [facility] Chem S Globulin (S) [Mass/Vol] 2.7 g/dL Normal 1.4 - 4.0 gm/dL FT Remisol Glucose [Mass/Vol] 107 mg/dL Normal 55 - 199 mg/dL [facility] Remisol Potassium [Moles/Vol] 3.8 mmol/L Normal 3.5 - 5.3 mmol/L FT Remisol Protein [Mass/Vol] 7.0 g/dL Normal 6.0 - 7.8 gm/dL FT Remisol Sodium [Moles/Vol] 135 mmol/L Normal 135 - 145 mmol/L FT Remisol Triglyceride [Mass/Vol] 89 mg/dL Normal <=149mg/dL FT Remisol Urea nitrogen [Mass/Vol] 15 mg/dL Normal 5 - 21 mg/dL FT Remisol Urea nitrogen/Creatinine [Mass ratio] 25 mg/mg High 10 - 20 FT Remisol CMPon 09-24-2021 Albumin [Mass/Vol] 4.3 g/dL Normal 3.3-5.0 [facility] Comment on above: Performed By: #### 2 [id number], [id number], [id number] #### [facility] [address] [place] [address] Albumin/Globulin (S) [Mass conc ratio] 1.6 Normal 1.1-2.2 [facility] Comment on above: Performed By: #### 2 287571, [id number], [id number] #### [facility] [address] [place] [address] ALP [Catalytic activity/Vol] 52 Int._Unit/L Normal 21-98 [facility] Comment on above: Performed By: #### 2 726661, [id number], [id number] #### [facility] [address] [place] [address] ALT No additional P-5'-P [Catalytic activity/Vol] 25 Int._Unit/L Normal 6-46 [facility] Comment on above: Performed By: #### 2 793724, [id number], [id number] #### [facility] [address] [place] [address] Anion gap [Moles/Vol] 11 mmol/L Normal 6-16 [facility] Comment on above: Performed By: #### 2 040249, [id number], 9283739 #### [facility] [address] [place] [address] AST [Catalytic activity/Vol] 22 Int._Unit/L Normal 5-43 [facility] Comment on above: Performed By: #### 2 267747, [id number], [id number] #### [facility] [address] [place] [address] Bilirubin [Mass/Vol] 1.3 mg/dL High 0.0-1.1 [facility] Comment on above: Performed By: #### 2 646485, [id number], [id number] #### [facility] [address] [place] [address] Calcium [Mass/Vol] 9.1 mg/dL Normal 8.9-11.1 [facility] Comment on above: Performed By: #### 2 509896, [id number], 5868939 #### [facility] [address] [place] [address] Chloride [Moles/Vol] 102 mmol/L Normal 101-111 [facility] Comment on above: Performed By: #### 2 936468, [id number], 2768126 #### [facility] [address] [place] [address] CO2 [Moles/Vol] 26 mmol/L Normal 21-[address] [facility] Comment on above: Performed By: #### 2 192119, [id number], [id number] #### [facility] [address] [place] [address] Creatinine [Mass/Vol] 0.6 mg/dL Normal 0.5-1.3 [facility] Comment on above: Performed By: #### 2 174198, [id number], [id number] #### [facility] [address] [place] [address] Globulin (S) [Mass/Vol] 2.7 g/dL Normal 1.4-4.0 [facility] Comment on above: Performed By: #### 2 170651, [id number], [id number] #### [facility] [address] [place] [address] Glucose [Mass/Vol] 107 mg/dL Normal 55-199 [facility] Comment on above: Result Comment: If t his glucose result represents a fasting glucose, interpretation should refer to the following reference range: 55-99 mg/dL Performed By: #### 2 668789, [id number], [id number] #### [facility] [address] [place] [address] Potassium [Moles/Vol] 3.8 mmol/L Normal 3.5-5.3 [facility] Comment on above: Performed By: #### 2 274217, 26396015, 0960439 #### [facility] [address] [place] [address] Protein [Mass/Vol] 7.0 g/dL Normal 6.0-7.8 [facility] Comment on above: Performed By: #### 2 128189, [id number], 6337096 #### [facility] [address] [place] [address] Sodium [Moles/Vol] 135 mmol/L Normal 135-145 [facility] Comment on above: Performed By: #### 2 334310, [id number], [id number] #### [facility] [address] [place] [address] Urea nitrogen [Mass/Vol] 15 mg/dL Normal 5-21 [facility] Comment on above: Performed By: #### 2 409605, [id number], 6492281 #### [facility] [address] [place] [address] Urea nitrogen/Creatinine [Mass ratio] 25 No Units High 10-20 [facility] Comment on above: Performed By: #### 2 539558, [id number], 7038650 #### [facility] [address] [place] [address] Consent for Treatmenton 08-31 Consent for Treatment [id number] [id number]:127 Normal [facility] Lipid Panelon 09-24-2021 Cholesterol [Mass/Vol] 245 mg/dL High 120-200 [facility] Comment on above: Performed By: #### 2 886621, [id number], 5455936 #### [facility] [address] [place] [address] Cholesterol in HDL [Mass/Vol] 50 mg/dL Invalid Interpretation Code [facility] Comment on above: Result Comment: HDL > or equal to 60 mg/dL: Low cardiovascular risk HDL < 40 mg/dL : High cardiovascular risk Performed By: #### 2 716180, 20081755, [id number] #### [facility] [address] [place] [address] Cholesterol in LDL [Mass/Vol] 174 mg/dL High <=129 [facility] Comment on above: Performed By: #### 2 827211, 58334430, 7317160 #### [facility] [address] [place] [address] Cholesterol in VLDL [Mass/Vol] 18 mg/dL Normal 7-40 [facility] Comment on above: Performed By: #### 2 499723, 49501853, 9665631 #### [facility] [address] [place] [address] Triglyceride [Mass/Vol] 89 mg/dL Normal <=149 [facility] Comment on above: Performed By: #### 2 974436, [id number], 1298624 #### [facility] [address] [place] [address] Physician Orderon 09-24-2021 Physician Order [id number] C#[id number]:127 Normal [facility] eGFRon 09-24-2021 GFR/1.73 sq M.predicted among blacks MDRD (S/P/Bld) [Vol rate/Area] mL/min/{1.73_m2} Normal >=59 [facility] Comment on above: Order Comment: Order added by Discern Expert. Result Comment: eGFR is race adjusted. AA=. Performed By: #### 2 581261, [id number], [id number] #### [facility] [address] [place] [address] GFR/1.73 sq M.predicted among non-blacks MDRD (S/P/Bld) [Vol rate/Area] mL/min/{1.73_m2} Normal >=59 [facility] Comment on above: Order Comment: Order added by Discern Expert. Result Comment: Creative Director alexy kidney disease could be indicated at eGFR's of less than 60 mL/min/1.73m2. Kidney failure is indicated at less than 15 mL/min/1.73m2. Performed By: #### 2 449452, [id number], [id number] #### [facility] [address] [place] [address] Coding Summary.on 11-28-2020 Coding Summary. CD:[id number] OUi1wSd+PGhlYWQ+PE1 PQIGcK99qbSUovU6FK8 oMGT6AHCNOEGNCXZ9ZX H2eaVI8XMpcI6EbhtZz ZechxUBiDC46XAy8EIY 7mVbjNNdynC2ztTLsG0 u1TfOqVC18xX83TNdrR QWsTfP8IlRedgsyjARo H4wzJkQepOBhDny+PHR hYmxlIHdpZHRoPScxMD ShXoZjcVjzPE3jEr4fA GVyLWNvbGxhcHNlOiBj b0ufLDGqHOrwIC4ipAx gC4JsgRV2VNQyo2r6Lo 48dHI+TQApHTU7nEghN Qigu840KmRkw6adNKI3 uZRjQGlxDPF2H56wo8O 3LANoLITkGUM6fHG8gH 4afZqloktfQ9YsoCKtC aD3IPJ9jSPgvU4qtEca hzkmgX7zXxj+O30PEW1 BMZGRHB6SAgb1L3PpCy wvdHI+NE53HEKoLV59g EXxpVGvh6rysAt8TpHa BEMiBMF0aIqmRAokm6F rUESyW65qbZOgy7Q2OG NmmYoroHThYqPfdIK7n R4fTIivbmiru3vmstkt Pwwti0qnxh09gI65B87 gGEoyIUXlDEP5WBQlKD KrnUsdjd3zgV0xXc6+I Ypga4ksc7wroWr9FrZa IZTryuOejCipJZW6t3G dEw16A9LdvAxdb0VxGv u6lu91cOHdr6E4hEO1R NkuYVOguN2sHNsxWwT7 OATmXtHqiE78qFTkNGn pMc5itYcfvVnePZ2qBS VwpgsaGKQriD6rSYDpn RCpcSekKH5gFMMqwmtu o344RbQuMPZ9KBNwwHX aN5TtsJ9cVsRqZZBqUT CpT4MeoDDfRXxtF996V CvaKcI1IKAkerFaH5Om CVNvqScqJvZ2a0S5Ss7 Uy4WieespEQA0XKltZA P9UaFnYzLbZzU4N6LlH od5TESymPmiMZ9bY1Yo PUSkenxuvjhxlXB2WNY fXADoiB39iGBnPNweGk 6ot5D1h098JYUsRHGxn C67Tm8xsRnpUXQacMSP bD8tkrndw9asmrwjTsJ oKQWdFHa1ZAs3GQQeoS fwPvGzHTU6XwS6BPI5r KUwaT4aaTbcdiblfK9q Oyc+N53suV3pFKX1HVA 2unpvOLYdiqLjMC42DR 43Q4VeCvfhqAZppDN+P FYcrzJxgSvvRL0eNaEm k5qtk9TuIJyuU0KrUWD vRAtnKdn4SLUmIYM5qQ Y4vW2iLBDlUErzd2N8o EV8Q5ZpqoQxte9ul1zd KUFmBKfwP25xpJOsj9X 0TKQesGR6GDZicCefYg PvtX28Men+PGNvbGdyb 3QkGvnjn4cwz2pfwJy8 IjMwJSIgdmFsaWduPSJ 8r9UkJj19X24bRMqvLE RoPSIxNSUiIHZhbGlnb a5geU8oNs0+PGNvbCB3 fKJ1tJ4mFFJmEmI0DRt uZ535DgHaxGNrWbrca7 rsc6opsAq6QmXqXQGqm dFkeWieDZM6n7XpTh37 B26dOBwhWYAtWILwMBK gIYVyrTwkkq6jsY9aSm 8+HL8ij4cdtu96sU94j HI+VKOiGWB6cSpcGWpj TUVlzF8wWGuuAnR6YQK vKtClvR75mFPyHBcaHb 2ypLshhPkdSS2zZVPhu gxhv342ZpEek5jdUWAq jHDuLJzmMQG1L85rn8C 6VMZyWHXbLNX8xOS0nO 1hbGlnbjogbGVmdDsgd uDcyXwpWKdbJPtjX148 IHRvcDsnPlBhdGllbnQ gQqNpIZx1T7GpCyv0MT KwuFxoRJ3pbZHoXTaqA y6ewArjdYxaCO6gSOVs aauxq734NtSqi0nuSIP ldEGjCThjLJW5G89cq7 I1AFNpKERdDXW4oMA9v R9leIrkhymbfGIhwJco dnKfhYljMKwlGWqnV45 6IHRvcDsnPkJpcnRoIE PqjNN0GY39LP41tORlb 4T8bBV5L1StVTZrgarx mhinyBT7OPMrPRFxwM3 6Bp1xzFgxXj4yCKLmTQ Y8DHCwfHKfB3MhnV6mF iRfCGFbLXWlT7OzuXZk NXedA457KCznOiR6MSU hvkQfW0HnYPEzgIvrMy P2e6H0Ng0JG7G5GH58P S11dZGyk9R7wZS7F7Ft VLUgtgbwqmhhbZH6SBE nAIIrfN66Da8flVocQu 6gCCZiWKI6VACipPZqI 1OhgK0fCpEpFTJeQLPv D6QyrDXfWHxfU540QIz aWnV0YXFucwVkI5KxSP XmnOrmJqZ1d1I9Rl4RA Gs1JY55ET01jNSvl0I3 dYF1O6GzABCuldromgy ycJQ9MWJaYBWduP30Ey 5fzLgxGh8hWJJiPME3F WHgxSBiT5CqzA4wNdPt ELEbLNLaD7VjbOBpCBq zC994ULwdMnY2QZKnfh PyE3FnLKGrwRfoCrM4c 0Y2Yc9NRARnXS99GLJ0 zNG9UE29NK90Z4FyPtj vdGFibGU+PHRhYmxlIH dpZHRoPScxMDAlJyBzd QglPY6jCt6gSTLdZCOf wZfkxMWbTnUge6jiFDQ uXJhwOA2jvXcpC8RxhX E4XDUuu8w7Rl63O05bP 3JvdXA+NDHjcPE6wEL8 nC2pZeYmAhJ3FLknT84 0WmDygDVcIvzvd6xkk9 oebSs3NiQ4TBEagpLkv PesDIL9l7PtIz00D33q IHdpZHRoPSIxNSUiIHZ kgAajjd5dzR7aQd9+PG FpaSP1lDW6iL2mRfPeK pS9EVdtU777ZsHkdQRs Kbcgf9rne9jeuIw4PsJ nWSQjaeQdqJudOPV1b9 UwLf25O9WlpFznu9PjH ov9gl46eXMtg9L0wAZ8 Z1ZsJSLevbwzzMJqxSa wJR1nOTYafqohXBBuaL 1bETBaO0r2GuGjMrF9A KqgJ6LlyhW7GFRdsSSo JIdrQNO1D19vz8D5MRJ qLZFoNRT4qPH6qS9rbI lnbjogbGVmdDsgdmVyd CmuWBtjPUsmB267NLVj bGlhIKLcsJ2bEDEzyXI bkAnrUV3nIEAkrvdzIk tFTExFWSwgQlJFTkRBI Dp1D7JtNmt9MWEteEcb KY7qeUXdOUmnEx4zmGb ulHpvKR6pZPVibptqMW EqnV4bXSMhsGNjuFmkP F9oNKFqdtqey404QkZl ACT6GPXurJUbF0KsiX6 cWuYsDBTwFTTsI1OqwV QlQRwjU061NAwgZhQ3A TUejcBwO3AzLPAtmCjy BnS4t0K0Uo6iRi7bNW2 uTTQ9ZP18MG36dPWcb3 L5bRF2M1CdJQYpgfhgq uekeOU4VBUySKNslJ77 zHPrWWqrLz1qu0U7o70 4NUPlHRAcxT14Gj9zlL ueHDJrpQMMhB8gxbxpj 7ayjqpcOfWjEHBcLRx7 BHh6OPUjuZyyTtPdBUF 8JoI1XQF6oAPvnQ2djS duhwllzB4hSmp+NTYgW EOijgA5T7MzWds5NCIr nRxoQE5eoBRdMGynPa1 mqNmznItzGD7qPSEvml aqDTLxcQ6rROEpkCMvl LlnRG6vXOWtqjhmw920 AjWdAXN5AVCayUThE0V khN1nHyDaXYQcCCCqY4 OtoOTbSIiyU983XHyyC kR3EJJnknLoZ0SiQQXx dCvxChV5y7N9Yt8JAC2 uiHB5B1TsGpt0OUZcbS bvTE4ttKZgUJasBn4vr MshuTflDE5fQUFmvwwx TWJaqJ1uTLXikJBtzRz nCR5dDCUtagrwt654Jy PtMCR9WHIdtACkD0Qqs W7pWqGpGRVuTDKdA1Qn lKXfLLnqT725KTikSvG 8LLRjgqSiR6FvJVVexL hdWvN4f2X8Fg6RvEAwQ IArAX73SO00KB57Z7Md PjwvdGFibGU+PHRhYmx lIHdpZHRoPScxMDAlJy YjyLvlXK8nRf6tBIHiN CMvwUcmnTIhWeFzw3uu PYJeYTezAY2diLazN9J uhJQ2IYGgm1u0Dk88I5 8cC3FdrLQ+UBFhxNU4p WG5dA4gIuWhVzU0JDzn D238DySluENoAoduq6a ha5oyhEe4WnFnDMJeup MkcXfpISE7k8JoKy64K 29sIHdpZHRoPSIyMCUi YYEdhLramr9zkA7fIz2 +XWTrwXL8pEB1bX6xUy SrMrH8GGlcQ817WqLbx JHqTfteB13qS8ExnFI+ VABnQjy5ZQTqaEkmXH5 xmSKnCHxvAc1hOHK8Eu NcRiZgWTglX3LpOBRgu nvexmjioTT2LKWkXTXd uU49Ev0ntJtoPz7eKGO zCRD0IBXkoZPaT5GslC 9kGpAtJFSbLSLnH2Xfr LQsIIknI342CNwqKqD3 ZZTpugVlL6XkRJKsvEl aAxP2v0L9Vk9DhCnslV IiZE0tWnZcXJx2P8IiV pa9ZDFrvDrjXK9svPCq DYcfJg5qfWonzZzwUR8 xSFWjmnkqb985RtKjr3 eqHDOnxJKiPSyhSTN9Q 85pa3Q8EZYsPGVaZED0 sQT1sJ1diVkfovyzqWJ mdDsgdmVydGljYWwtYW ccY819FMVlmGbwFyLAJ tr8U9UaOwy4PXPbhSko DM4caAAmEMsuBn0sxRb azAwrPB0iDBAnlumzs2 65DaYxc4eiVPCthSUbJ CdjNFN4Q69ta0U0FUZf BGXfAHL3oSF2uJ3xaVc nbjogbGVmdDsgdmVydG oeIQlhGCiuJ451YRRtd AkkGq2ZEwd0V0OiGbo9 SBFlmHzcWL3ddGKeFTe fLh9nmIpgmEpqJG5aYL Pvwtsrs691FpOie1rbT WUezSYsSWanFWZ5U92l b4I3EQWrWBOwBHP8aVW 8dW0deHtjoihlsMQvwD sgdmVydGljYWwtYWxpZ 246IHRvcDsnPlBheWVy OjwvdGQ+PO28sn31R9X oCfpaYvz5WQYcYMS5wQ B6fN7gIGWkYWvhk9T0v IZ9C6RfrcKobh5up0la YXBz (more content not included)... Normal [facility] Auto Diffon 11-19-2020 Basophils/100 WBC (Bld) 0.7 % Normal 0.0-2.0 [facility] Comment on above: Order Comment: Order Added by Discern Expert. Performed By: #### 2 [id number], [id number] #### [facility] [address] [place] [address] Basophils/Leukocytes Auto (Bld) [Pure # fraction] 0.0 E9/L Normal 0.0-0.2 [facility] Comment on above: Order Comment: Order Added by Discern Expert. Performed By: #### 2 064095, [id number] #### [facility] [address] [place] [address] Eosinophils/100 WBC (Bld) 9.0 % High 0.0-8.0 [facility] Comment on above: Order Comment: Order Added by Discern Expert. Performed By: #### 2 557914, [id number] #### [facility] [address] [place] [address] Eosinophils/Leukocyt es Auto (Bld) [Pure # fraction] 0.5 E9/L Normal 0.0-0.5 [facility] Comment on above: Order Comment: Order Added by Discern Expert. Performed By: #### 2 687530, [id number] #### [facility] [address] [place] [address]68[address] Lymphocytes/100 WBC (Bld) 30.0 % Normal 14.0-50.0 [facility] Comment on above: Order Comment: Order Added by Discern Expert. Performed By: #### 2 260631, [id number] #### [facility] [address] [place] [address] Lymphocytes/Leukocyt es Auto (Bld) [Pure # fraction] 1.7 E9/L Normal 1.0-4.0 [facility] Comment on above: Order Comment: Order Added by Discern Expert. Performed By: #### 2 141027, [id number] #### [facility] [address] [place] [address] Monocytes/100 WBC (Bld) 7.6 % Normal 4.0-14.0 [facility] Comment on above: Order Comment: Order Added by Discern Expert. Performed By: #### 2 043803, [id number] #### [facility] [address] [place] [address] Monocytes/Leukocytes Auto (Bld) [Pure # fraction] 0.4 E9/L Normal 0.2-1.0 [facility] Comment on above: Order Comment: Order Added by Discern Expert. Performed By: #### 2 710698, [id number] #### [facility] [address] [place] [address] Neutrophils/100 WBC (Bld) 52.7 % Normal 36.0-75.0 [facility] Comment on above: Order Comment: Order Added by Discern Expert. Performed By: #### 2 005159, [id number] #### [facility] [address] [place] [address] Neutrophils/Leukocyt es Auto (Bld) [Pure # fraction] 2.9 E9/L Normal 2.0-7.5 [facility] Comment on above: Order Comment: Order Added by Discern Expert. Performed By: #### 2 317068, [id number] #### [facility] [address] [place] [address] 96080 CBC w/ Auto Diffon Erythrocyte distribution width (RBC) [Ratio] 12.8 % Normal 10.9-14.2 [facility] Comment on above: Performed By: #### 2 562969, [id number] #### [facility] [address] [place] [address]1182 Hematocrit (Bld) [Volume fraction] 42.2 % Normal 34.0-46.0 [facility] Comment on above: Performed By: #### 2 369122, [id number] #### [facility] [address] [place] [address]6217 Hemoglobin (Bld) [Mass/Vol] 14.4 g/dL Normal 12.0-16.0 [facility] Comment on above: Performed By: #### 2 124379, [id number] #### [facility] [address] [place] [address] 64536 MCH (RBC) [Entitic mass] 30.5 pg Normal 27.0-34.0 [facility] Comment on above: Performed By: #### 2 145522, 0859181 #### [facility] [address] [place] [address] 27273 MCHC (RBC) [Mass/Vol] 34.2 g/dL Normal 31.4-36.0 [facility] Comment on above: Performed By: #### 2 347780, [id number] #### [facility] [address] [place] [address] 20866 MCV (RBC) [Entitic vol] 89.3 fL Normal 80.0-100.0 [facility] Comment on above: Performed By: #### 2 720820, 7341604 #### [facility] [address] [place] [address] 17946 Platelet mean volume (Bld) [Entitic vol] 8.7 fL Normal 6.4-10.8 [facility] Comment on above: Performed By: #### 2 152570, 6393588 #### [facility] [address] [place] [address]861 Platelets (Bld) [#/Vol] 178.0 E9/L Normal 150.0-500.0 [facility] Comment on above: Performed By: #### 2 901807, [id number] #### [facility] [address] [place] [address] 26[address] RBC (Bld) [#/Vol] 4.7 E12/L Normal 4.3-5.9 [facility] Comment on above: Performed By: #### 2 739746, [id number] #### [facility] [address] [place] [address] WBC corrected for nucl RBC Auto (Bld) [#/Vol] 5.5 E9/L Normal 4.0-11.0 [facility] Comment on above: Performed By: #### 2 297758, [id number] #### [facility] [address] [place] [address] Consent for Treatmenton 10-31 Consent for Treatment [id number]#[id number]:127 Normal [facility] Physician Orderon 11-19-2020 Physician Order [id number] 30#[id number]:127 Normal [facility] Vital Signs Date Time Vital Sign Value Performing Clinician Mallorie koo 07-19-2024 15:02-0500 Body mass index (BMI) [Ratio] 28.57 kg/m2 Mirna Nataprawira DO Work Phone: [facility] 07-19-2024 15:02-0500 Body weight 80.29 kg Mirna Nataprawira DO Work Phone: [facility] 07-19-2024 15:02-0500 Diastolic blood pressure 78 mm[Hg] Mirna Nataprawira DO Work Phone: [facility] 07-19-2024 15:02-0500 Systolic blood pressure 126 mm[Hg] Mirna Nataprawira DO Work Phone: [facility] 05-06-2024 08:22-0500 Body height 167.6 cm Cleopatra SADLER Work Phone: [facility] 05-06-2024 08:22-0500 Body mass index (BMI) [Ratio] 28.5 kg/m2 Cleopatra SADLER Work Phone: [facility] 05-06-2024 08:22-0500 Body temperature 98.4 [degF] Cleopatra SADLER Work Phone: [facility] 05-06-2024 08:22-0500 Body weight 80.11 kg Cleopatra SADLER Work Phone: [facility] 05-06-2024 08:22-0500 Diastolic blood pressure 82 mm[Hg] Cleopatra SADLER Work Phone: [facility] 05-06-2024 08:22-0500 Heart rate 85 /min Cleopatra SADLER Work Phone: [facility] 05-06-2024 08:22-0500 SaO2% (BldA) [Mass fraction] 98 % Cleopatra Bowie PA Work Phone: 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 Start: 07-19-2024 End: 07-19-2024 ambulatory MIRNA J NATAPRAWIRA Not Available Start: 07-19-2024 End: 07-19-2024 Bamboo flowsheet Mirna J Nataprawira DO Work Phone: [facility] Start: 07-19-2024 End: 07-19-2024 Bamboo flowsheet Mirna J Nataprawira DO Work Phone: [facility] Start: 06-13-2024 End: 06-13-2024 Refill Roxi Medrano MA [facility] Comment on above: Mixed hyperlipidemia (CMS/HCC) Start: 06-08-2024 End: 06-08-2024 ambulatory Cheko SADLER Facility:[facility] [place] Start: 05-17-2024 End: 05-17-2024 Telephone encounter Cleopatra J Yessi PA Work Phone: [facility] Start: 05-06-2024 ambulatory Gabbie Gotti y:[facility] Start: 05-06-2024 End: 05-06-2024 ambulatory CLEOPATRA BOWIE Not Available Start: 05-06-2024 End: 05-06-2024 Patient encounter procedure Cleopatra SADLER Work Phone: [facility] Start: 05-06-2024 End: 05-06-2024 Periodic preventive med est patient 40-64yrs Cleopatra SADLER Work Phone: [facility] Comment on above: High-renin essential hypertension (CMS/HCC) (Primary Dx); Screening for cervical cancer; Well woman exam with routine gynecological exam; Mixed hyperlipidemia (CMS/HCC); Breast cancer screening by mammogram; Non-recurrent acute suppurative otitis media of right ear without spontaneous rupture of tympanic membrane Start: 01-20-2023 End: 01-20-2023 ambulatory [facility] Work Phone: Start: 01-20-2023 End: 01-20-2023 Patient encounter procedure [facility] Work Phone: Start: 09-24-2021 End: 09-24-2021 Patient encounter procedure Emma Buchanan [facility] Procedures Date Procedure Procedure Detail Performing Clinician Start: 05-06-2024 Microscopic observat ion [Identifier] in Cervix by Cyto stain Cleopatra SADLER Work Phone: Start: 01-20-2023 Screening mammography Start: 06-21-2021 Mammography Cleopatra SADLER Work Phone: Polyp of vocal cord (disorder) Emma Buchanan Plan of Treatment Date Care Activity Detail Author Start: 01-09-2028 Screening for malign ant neoplasm of cervix [facility] Start: 05-06-2027 Screening for malign ant neoplasm of cervix Pap Smear [facility] Start: 05-17-2025 End: 05-17-2025 Patient encounter procedure 05/17/2025 11:15 AM EST Office Visit [facility] [address] [id number] Mirna Pisano, [address] [address] [facility] Start: 11-19-2024 Screening for malign ant neoplasm of colon [facility] Start: 07-19-2024 End: 07-19-2024 Patient encounter procedure 07/19/2024 3:00 PM EST Office Visit [facility] [address] [phone] Mirna Pisano, [address] [phone] Arrived [facility] Comment on above: Arrived Start: 06-14-2024 End: 06-14-2024 Patient encounter procedure 06/14/2024 2:15 PM EST Office Visit [facility] [address] [phone] Mirna Pisano DO [address] [phone] [facility] Start: 05-06-2024 End: 05-06-2025 CBC W Auto Differential panel - Blood CBC and differential Lab Routine High-renin essential hypertension (CMS/HCC) Mixed hyperlipidemia (CMS/HCC) Expected: 05/06/2024 (Approximate), Expires: 05/06/2025 [facility] Comment on above: Expected: 05/06/2024 (Approximate), Expires: 05/06/2025 Start: 05-06-2024 End: 05-06-2025 Comprehensive metabolic 2000 panel - Serum or Plasma Comprehensive metabolic panel Lab Routine High-renin essential hypertension (CMS/HCC) Mixed hyperlipidemia (CMS/HCC) Expected: 05/06/2024 (Approximate), Expires: 05/06/2025 [facility] Comment on above: Expected: 05/06/2024 (Approximate), Expires: 05/06/2025 Start: 05-06-2024 End: 05-06-2025 Lipid 1996 panel - Serum or Plasma Lipid panel Lab Routine Mixed hyperlipidemia (CMS/HCC) Expected: 05/06/2024 (Approximate), Expires: 05/06/2025 [facility] Comment on above: Expected: 05/06/2024 (Approximate), Expires: 05/06/2025 Start: 05-06-2024 End: 07-07-2025 MG Breast - bilateral Screening Bilateral screening mammogram Imaging Routine High-renin essential hypertension (CMS/HCC) Expected: 05/06/2024 (Approximate), Expires: 07/07/2025 [facility] Comment on above: Expected: 05/06/2024 (Approximate), Expires: 07/07/2025 Start: 05-06-2024 End: 05-06-2025 THINPREP TIS PAP AND HPV MRNA E6/E7 WITH REFLEX TO HPV 16,18/45 THINPREP TIS PAP AND HPV MRNA E6/E7 WITH REFLEX TO HPV 16,18/45 Pathology and Cytology Routine Screening for cervical cancer Well woman exam with routine gynecological exam Expected: 05/06/2024 (Approximate), Expires: 05/06/2025 [facility] Work Phone: Comment on above: Expected: 05/06/2024 (Approximate), Expires: 05/06/2025 Start: 06-21-2022 Screening for malign ant neoplasm of breast Mammogram [facility] Start: 12-03-1984 Screening for malign ant neoplasm of cervix Pap Smear [facility] Start: 1965 Screening for malign ant neoplasm of colon [facility] Immunizations Immunization Date Immunization Notes Care Provider Fa constance 05-13-2021 Covid (Moderna) [facility] 07-27-2020 Covid (Moderna) [facility] 06-29-2020 Covid (Moderna) [facility] 05-13-2018 influenza, seasonal, injectable [facility] 06-23-2001 hepatitis A and hepa titis B vaccine [facility] Payers Date Payer Category Payer Unknown [id number] 2024 Self-pay [id number] 2022 Private Health Insurance [facility] [id number] 2022 Unknown [id number] 1965 Unknown [id number] 1965 Unknown [id number] Unknown ANTHEM [id number] Unknown [id number] Unknown H EMP HL[facility] D O NOT USE [id number] Unknown [id number] Unknown [id number] Unknown [id number] Social History Date Type Detail Facility Start: 05-28-2019 End: 01-20-2023 Tobacco smoking status Ex-smoker (finding) [facility] Start: 01-07-2023 End: 07-19-2024 [facility] Start: 1965 Sex Assigned At Female [facility] History of tobacco use Current smoker [facility] History of tobacco use Cigarette Smoker [facility] Start: 01-20-2023 Tobacco use and exposure Smokeless tobacco non-user [facility] Start: 05-06-2024 End: 07-19-2024 Alcoholic beverage intake Current drinker of alcohol (finding) [facility] Start: 01-07-2023 End: 07-19-2024 History of Social function [facility] Within the last year , have you been afraid of your partner or ex-partner? No [facility] Are you now , , , , never or living with a partner? [facility] How often to you hav e a drink containing alcohol? 4 or more times a week [facility] How many standard drinks containing alcohol do you have on a typical day? 1 or 2 [facility] How often do you hav e 6 or more drinks on 1 occasion? Never [facility] How hard is it for y ou to pay for the very basics like food, housing, medical care, and heating Not hard at all [facility] Do you feel stress - tense, restless, nervous, or anxious, or unable to sleep at night because your mind is troubled all the time - these days [OSQ] Not at all [facility] (I/We) worried james er (my/our) food would run out before (I/we) got money to buy more. Never true [facility] Start: 01-20-2023 Tobacco Comment Last smoked: >10 years [facility] Start: 01-07-2023 Gender identity Identifies as female gender (finding) [facility] Start: 01-07-2023 Sexual orientation Heterosexual (finding) [facility] Clinical Notes 05-06-2024 to 07-19-2024 Mirna Pisano, - 07/19/2024 3:00 PM ESTTelephone Encounter - DOROTEO Smith - 06/13/2024 1:37 PM ESTTelephone Encounter - DOROTEO Smith - 06/13/2024 1:37 PM EST Note Date & Type Note Facility 07-19-2024 History of Presen t illness Narrative Images from the original note were not included. Subjective Shey Borrero is a 58 y.o. female HPI Chief Complaint Patient presents with sick visit New patient referred by Annie Bowie for abnormal pap done on 05/06/2024 and would like to discuss treatment/management options. 05/06/2024: NILM, Positive HR HPV, Negative HPV 16, 18, 45 01/08/2023: NILM, Negative HR HPV 12/24/2021: NILM, Positive HR HPV, no HPV typing 11/19/2020: NILM, Negative HR HPV 03/25/2018: NILM, Negative HR HPV Past Medical History: Diagnosis Date History of being hospitalized 05/31/2019 [facility] [place] [facility]- Influenza A/pneumonia Past Surgical History: Procedure Laterality Date BASAL CELL CARCINOMA EXCISION Lt forearm OTHER SURGICAL HISTORY 1988 vocal chord polyps VAGINAL DELIVERY x6 Family History Problem Relation Name Age of Onset Hypertension Mother Social History Tobacco Use Smoking status: Former Types: Cigarettes Smokeless tobacco: Never Tobacco comments: Last smoked: >10 years Substance Use Topics Alcohol use: Yes Alcohol/week: 4.0 - 8.0 standard drinks of alcohol Types: 4 - 8 Standard drinks or equivalent per week Drug use: Never OB History Para Term AB Living 8 6 SAB IAB Ectopic Multiple Live Births # Outcome Date GA Lbr Randy/2nd Weight Sex Type Anes PTL Lv 8 7 6 Para 5 Para 4 Para 3 Para 2 Para 1 Para Allergies Allergen Reactions [place] Oil Anaphylaxis Doxycycline Hives and Photosensitivity Erythromycin Hives Nitrofurantoin Hives Sulfamethoxazole-Trimethoprim Hives, Photosensitivity and Swelling Current Outpatient Medications on File Prior to Visit Medication Sig Dispense Refill atenolol (Tenormin) 25 MG tablet Take 1 tablet (25 mg) by mouth in the morning. 90 tablet 3 atorvastatin (Lipitor) 20 MG tablet Take 1 tablet (20 mg) by mouth Daily 90 tablet 3 azithromycin (Zithromax) 250 MG tablet Take 2 tabs PO x 1 day then 1 tab PO daily x 4 days 6 tablet 0 spironolactone (Aldactone) 50 MG tablet Take 3 tablets (150 mg) by mouth in the morning. 270 tablet 3 No current facility-administered medications on file prior to visit. Review of Systems Constitutional: Negative for chills and fever. Respiratory: Negative for shortness of breath. Cardiovascular: Negative for chest pain. Gastrointestinal: Negative for nausea and vomiting. Genitourinary: Negative for dysuria, pelvic pain and vaginal discharge. Neurological: Negative for dizziness and headaches. Objective BP 126/78 Wt 177 lb BMI 28.57 kg/m Physical Exam Constitutional: Appearance: Normal appearance. Neurological: Mental Status: She is alert. Skin: General: Skin is warm and dry. Psychiatric: Mood and Affect: Mood normal. Assessment/Plan 1. Encounter to discuss test results (Primary) Dicussed in length and reviewed her pap-smear and high risk HPV results for the past several years. Based on ASCCP guidelines, since she is negative for HPV 16,18,45, no further work-up needed and will repeat pap-smear and co-testing for High risk HPV in 1 year. Questions asked and answered. Patient voiced understanding and agreed with the plan. 2. 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 documented in this encounter [facility] 06-13-2024 Telephone encounter Note completed [facility] 06-13-2024 Miscellaneous Notes completed documented in this encounter [facility] 05-17-2024 Telephone encounter Note Discussed pap test with patient, pap was normal however HPV was positive, patient had history of abnormal pap and discussed referral to rn gynecology for further eval, based on age and criteria, patient agreed will put in referral Referral to [facility] gynecology in [place] [facility] 05-17-2024 Miscellaneous Notes Discussed pap test with patient, pap was normal however HPV was positive, patient had history of abnormal pap and discussed referral to rn gynecology for further eval, based on age and criteria, patient agreed will put in referral Referral to [facility] gynecology in [place] documented in this encounter [facility] 05-06-2024 History of Presen t illness Narrative Images from the original note were not included. Shey Borrero is a 58 y.o. female presents with chief complaint of Gynecologic Exam HPI: History of Present Illness The patient is a 58-year-old female who presents for evaluation of vertigo. She reports experiencing vertigo, describing it as a sensation of the room spinning upon waking. This symptom is exacerbated when she looks up or down. She also mentions feeling congested and having fluid in her ear, which was confirmed by a previous provider. The ear occasionally causes her discomfort. She has not attempted to lie flat since the onset of these symptoms. She denies any instances of vaginal bleeding. FAMILY HISTORY Her mother has Alzheimer's. MEDICATIONS: Current Outpatient Medications Medication Instructions atenolol (TENORMIN) 25 mg, Oral, Daily atorvastatin (LIPITOR) 20 mg, Oral, Daily azithromycin (Zithromax) 250 MG tablet Take 2 tabs PO x 1 day then 1 tab PO daily x 4 days spironolactone (ALDACTONE) 150 mg, Oral, Daily ALLERGIES: Allergies Allergen Reactions [place] Oil Anaphylaxis Doxycycline Hives and Photosensitivity Erythromycin Hives Nitrofurantoin Hives Sulfamethoxazole-Trimethoprim Hives, Photosensitivity and Swelling Review of Systems General: Denies fever, chills, fatigue, SONG or weight loss/gain CV: Denies CP, palpitations or swelling in legs Resp: denies cough, SOB or wheezing GI: Denies abd pain/n/v/c/d Skin: Denies rash Neuro: Denies LH or dizziness Medical, Surgical, Family, and Social History reviewed. OBJECTIVE: Visit Vitals BP 124/82 (BP Location: Left arm, Patient Position: Sitting, BP Cuff Size: Adult) Pulse 85 Temp 98.4 F (Temporal) Ht 5' 6 Wt 176 lb 9.6 oz SpO2 98% BMI 28.50 kg/m OB Status Postmenopausal Smoking Status Former BSA 1.93 m BP Readings from Last 3 Encounters: 05/06/24 124/82 01/08/23 120/80 12/23/21 121/75 Wt Readings from Last 3 Encounters: 05/06/24 176 lb 9.6 oz 01/08/23 168 lb 2 oz 12/23/21 147 lb Physical Exam Physical Exam General: alert & oriented, NAD Head: NC/AT Oral Cavity: MMM Skin: warm, dry Heart: RRR, No m/r/g, S1S2 nml Lungs: CTA b/l Abdomen: soft, ND/NT, BS wnl Musculoskeletal: normal gait Extremities: no clubbing, cyanosis or edema Neurological: nonfocal Psych: mood/affect full range Pelvic Ext gen wnl cervix clear, slightly friable, bimanual wnl Results ASSESSMENT AND PLAN: Assessment & Plan 1. Vertigo. She reports experiencing vertigo with symptoms of room spinning, especially when looking up or bending down. She also reports congestion and fluid in her ear, which was confirmed by a provider. The ear appears infected. An antibiotic prescription will be sent to [facility] in [place] to manage the infection. She is advised to avoid sudden movements and to keep her head elevated to help alleviate symptoms. 2. Health Maintenance. She is due for a mammogram, which was last performed in December 2022. An order for a mammogram will be printed for her to take to the preferred location. She also mentions being behind on blood work. An order for blood work will be printed for her to complete at [facility]. Assessment/Plan Problem List Items Addressed This Visit High-renin essential hypertension (CMS/HCC) - Primary Relevant Orders Bilateral screening mammogram CBC and differential Comprehensive metabolic panel Screening for cervical cancer Relevant Orders THINPREP TIS PAP AND HPV MRNA E6/E7 WITH REFLEX TO HPV 16,18/45 Well woman exam with routine gynecological exam Relevant Orders THINPREP TIS PAP AND HPV MRNA E6/E7 WITH REFLEX TO HPV 16,18/45 Other Visit Diagnoses Mixed hyperlipidemia (CMS/HCC) Relevant Orders Lipid panel CBC and differential Comprehensive metabolic panel Breast cancer screening by mammogram Non-recurrent acute suppurative otitis media of right ear without spontaneous rupture of tympanic membrane Relevant Medications azithromycin (Zithromax) 250 MG tablet Health Maintenance Due Topic Date Due Mammogram 06/21/2022 Colorectal Cancer Screening 11/19/2024 documented in this encounter [facility] Healthcare Evaluation + Plan note No data available for this section [facility] Evaluation note No assessment inform ation available [facility] Work Phone: Evaluation note Diagnosis High-renin essential hypertension (CMS/HCC)- Primary Unspecified essential hypertension Screening for cervical cancer Screening for malignant neoplasm of the cervix Well woman exam with routine gynecological exam Routine gynecological examination Mixed hyperlipidemia (CMS/HCC) Mixed hyperlipidemia Breast cancer screening by mammogram Non-recurrent acute suppurative otitis media of right ear without spontaneous rupture of tympanic membrane documented in this encounter [facility]* Diagnosis 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- Primary documented in this encounter [facility]* Diagnosis Mixed hyperlipidemia (CMS/HCC) Mixed hyperlipidemia documented in this encounter [facility]* Diagnosis Encounter to discuss test results- Primary Other specified counseling 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 documented in this encounter [facility]* Diagnosis Hypokalemia- Primary Hypopotassemia documented in this encounter [facility] Discharge instructions No data available for this section [facility] Summary Purpose Family History No Family History Records FoundNo Family History Records FoundNo Family History Records FoundNo Family History Records Found Advance Directives No Advanced Directives Records FoundNo Advanced Directives Records FoundNo Advanced Directives Records FoundNo Advanced Directives Records Found Chief Complaint and Reason for Visit Chief Complaint SCREENING Additional Source Comments INFORMATION SOURCE (unrecogn ized section and content) DATE CREATED AUTHOR 10/04/2021 [facility] DATE CREATED AUTHOR AUTHOR'S ORGANIZ ATION 05/14/2024 [facility] DATE CREATED AUTHOR AUTHOR'S ORGANIZ ATION 07/21/2024 [facility] EPIC DATE CREATED AUTHOR AUTHOR'S ORGANIZ ATION 02/18/2025 [facility] Care Teams (unrecognized sec tion and content) Team Status: Active Member Role Status Dates JAMIE BUCHANAN Family Provider Active EMMA BUCHANAN Primary Care Provider Active Team Status: Inactive Member Role Status Dates DEWAYNE VALENTIN Primary Care Provide r, Attending Provider, Referring Provider Active Hydrogenation Operator Relationship Specialty Start Date End Date Emma Buchanan, DO PCP - General Family Medicine 10/07/22 Hydrogenation Operator Relationship Specialty Start Date End Date Emma Buchanan Germain, DO PCP - General Family Medicine 10/07/22 Hydrogenation Operator Relationship Specialty Start Date End Date Emma Buchanan Germain, DO PCP - General [facility] Medicine 10/07/22 Hydrogenation Operator Relationship Specialty Start Date End Date Tyree Sheppard MD [address] [place] [address] PCP - [facility] 07/19/24 Hydrogenation Operator Relationship Specialty Start Date End Date Tyree Sheppard MD [address] [place] [address] PCP - [facility] 07/19/24 Goals (unrecognized section and content) Goals may be documented in a n alternate section Reason for Visit (unrecogniz ed section and content) Reason Comments Gynecologic Exam Reason Onset Date Comments Med Refill 06/13/2024 Reason Comments sick visit New patient referred by Annie Bowie for abnormal pap done on 05/06/2024 and would like to discuss treatment/management options. Reason Onset Date Comments Med Refill 08/11/2024 FOR RECORDS PERTAINING TO PATIENTS WHO ARE OR HAVE BEEN ENROLLED IN A CHEMICAL DEPENDENCY/SUBSTANCEABUSE PROGRAM, SOME INFORMATION MAY BE OMITTED. This clinical summary was aggregated from multiple sources. Caution should be exercised in using it in the provision of clinical care. This summary normalizes information from multiple sources, and as a consequence, information in this document may materially change the coding, format and clinical context of patient data. In addition, data may be omitted in some cases. CLINICAL DECISIONS SHOULD BE BASED ON THE PRIMARY CLINICAL RECORDS. [employer] provides no warranty or guarantee of the accuracy or completeness of information in this document.
--- OUTSIDE RECORDS SUMMARY | 2025-02-24 07:13 | XMS RPT_ITS | CCD ---
Author Organization [facility] [employer] MANAGER PUBLISHING [facility] Care Team Providers Care Weigher Packing Name Role Phone Emma Buchanan Primary Care Physician Emma Buchanan DO Primary Care Provider UnaMIRNA Maguire Attending Unavailable CLEOPATRA BOWIE Attending Unavailable Tyree Sheppard MD Primary Care Provider [phone] Attending Unavailable Gabbie Ayala Attending Unavailable TERESITA1 Referring Unavailable TERESITA1 Attending Unavailable TERESITA1 Primary Care Unavailable Allergies Allergy Classification Reported Allergen(s) Allergy Type Date of Onset Reaction(s) Facility (1 source) Clindamycin; Translations: [clindamycin] Drug Allergy [facility] (9 sources) Doxycycline; Translations: [doxycycline] Drug Allergy Allergy - specialty (qualifier value), Hives, Photosensitivity [facility] (9 sources) Erythromycin; Translations: [erythromycin] Drug Allergy Hives [facility] (9 sources) Sulfamethoxazole / Trimethoprim; Translations: [sulfamethoxazole-t rimethoprim] Drug Allergy Hives, Photosensitivity, Swelling [facility] (1 source) Carver Propensity to adverse reactions to substance [facility] (8 sources) Nitrofurantoin Drug Allergy Hives [facility] (8 sources) orange allergenic extract Drug Allergy 972 Anaphylaxis [facility] (1 source) Doxycycline Drug Allergy [facility] (1 source) Erythromycin Drug Allergy [facility] (1 source) [place] juice Drug allergy (disorder) [facility] (1 source) Sulfamethoxazole Drug Allergy [facility] (1 source) Trimethoprim Drug Allergy [facility] Medications Current Medications Medication Drug Class(es) Dates Sig (Normalized) Sig (Original) Albuterol (1 source) beta2-Adrenergic Agonist Start: 05-31-2019 take 2.5 mg by inhalation every six hours for wheezing albuterol 0.083% Inh Jolanta 3 mL 2.5 mg, 3 mL, Inhalation, q6hr for wheezing, 25 EA, Refill(s) 0, [facility] Start Date: 05/31/19 Status: Ordered albuterol [...] Reporton 0 06-08-2024 Urgent Care Visit Report [facility] [address], [address] [place] [address] OFFICE VISIT Date of Service: 06/08/24 MR#: [id number] Acct: [id number] Name: SHEY BORRERO Rep #: [id number] : 1965 Provider: DOROTEO Tay Age/Sex: 58/F Location: [facility] Status: Signed Intake Vital Signs 06/08/24 17:37 BP 144/86 H Blood Pressure Location Lt brachial Position Sitting Respiration 17 Pulse 110 H Pulse Source NIBP Temp 97.9 F Temp Source Oral Pulse Oximetry (%) 98 Oxygen Delivery Method room air Intake Visit Reasons: COUGH, CONGESTION Chief Complaint: cough, congestion Auto Apprentice Mechanic Required: No Is patient in pain?: No [...] improve, sooner (more content not included)... Normal [facility] HPV GENOTYPES 16,18/45on HPV 16 RNA Not detected Normal NOT DETECTED [facility] Comment on above: Performed By: #### 9 182, 92563 #### [facility] [address], [address] [place] [address] Vegetable Picker: Dallas Sanchez MD HPV 18/45 RNA Not detected Normal NOT DETECTED [facility] Comment on above: Result Comment: Meth odology: Brand Marketing Manager Mediated Amplification Cervical sources are required for HPV testing. If a vaginal source from a patient who has had a total hysterectomy with removal of cervix was submitted, please contact the testing laboratory for alternative testing options. Performed By: #### 9 182, 87520 #### [facility] [address], [address] [place] [address] Vegetable Picker: Dallas Sanchez MD THINPREP TIS PAP AND HPV mRN A E6/E7 WITH REFLEX TO HPV 16,18/45on 05-11-2024 CLINICAL INFORMATION: Normal [facility] Comment on above: Order Comment: FASTI NG:UNKNOWN FASTING: UNKNOWN Result Comment: BABS LEBLANC Performed By: #### 9 182, 07852 #### [facility] [address], [address] [place] [address] Vegetable Picker: Dallas Sanchez MD COMMENT Normal [facility] [...] clinical information. Performed By: #### 9 182, 14686 #### [facility] [place] [address] Vegetable Picker: Dallas Sanchez MD COMMENT: Normal [facility] Comment on above: Order Comment: FASTI NG:UNKNOWN FASTING: UNKNOWN Result Comment: This Pap test has been evaluated with computer assisted technology. Performed By: #### 9 182, 87625 #### [facility] [place] [address] Vegetable Picker: Dallas Sanchez MD DATA WAREHOUSE MANAGER: Normal [facility] Comment on above: Order Comment: FASTI NG:UNKNOWN FASTING: UNKNOWN Result Comment: DAA, CT(ASCP) CT Screening Location: [place] [address] Performed By: #### 9 182, 93888 #### [facility] [place] [address] Vegetable Picker: Dallas Sanchez MD HPV mRNA E6/E7 Detected Abnormal Not Detected [facility] Comment on above: Order Comment: FASTI NG:UNKNOWN FASTING: UNKNOWN Result Comment: Meth odology: Brand Marketing Manager-Mediated Amplification This assay detects E6/E7 viral messenger RNA (mRNA) from 14 high-risk HPV types (16,18,31,33,35,39,45,51,52,56,58,59,66,68). Cervical sources are required for HPV testing. If a vaginal source from a patient who has had a total hysterectomy with removal of cervix was submitted, please contact the testing laboratory for alternative testing options. For additional information, please refer to [email or web address].ReferralCandy/faq/[email or web address] (This link if provided for information/ educational purposes only.) Performed By: #### 9 182, 34821 #### [facility] [place] [address] Vegetable Picker: Dallas Sanchez MD INFECTION: Normal [facility] Comment on above: Order Comment: FASTI NG:UNKNOWN FASTING: UNKNOWN Result Comment: Shif t in vaginal lamine suggestive of bacterial vaginosis. Performed By: #### 9 182, 24724 #### [facility] [place] [address] Vegetable Picker: Dallas Sanchez MD INTERPRETATION/RESUL T: Normal [facility] Comment on above: Order Comment: FASTI NG:UNKNOWN FASTING: UNKNOWN Result Comment: Cyto logy Results: Negative for intraepithelial lesion or malignancy. Performed By: #### 9 1825, 45393 #### [facility] [address], [address] [place] [address] Vegetable Picker: Dallas Sanchez MD LMP: Normal [facility] Comment on above: Order Comment: FASTI NG:UNKNOWN FASTING: UNKNOWN Result Comment: N/G Performed By: #### 9 1825, 42766 #### [facility] [address], [address] [place] [address] Vegetable Picker: Dallas Sanchez MD PREV. BX: Normal [facility] Comment on above: Order Comment: FASTI NG:UNKNOWN FASTING: UNKNOWN Result Comment: N/G Performed By: #### 9 1825, 35993 #### [facility] of [address], [address] [place] [address] Vegetable Picker: Dallas Sanchez MD PREV. PAP: Normal [facility] Comment on above: Order Comment: FASTI NG:UNKNOWN FASTING: UNKNOWN Result Comment: N/G Performed By: #### 9 1825, 19625 #### [facility] [address], [address] [place] [address] Vegetable Picker: Dallas Sanchez MD REVIEW DATA WAREHOUSE MANAGER: Normal [facility] Comment on above: Order Comment: FASTI NG:UNKNOWN FASTING: UNKNOWN Result Comment: LLT, CT(ASCP) CT screening location: [place] [address]. Performed By: #### 9 1825, 22341 #### [facility] [address], [address] [place] [address] Vegetable Picker: Dallas Sanchez MD SOURCE: Normal [facility] Comment on above: Order Comment: FASTI NG:UNKNOWN FASTING: UNKNOWN Result Comment: Vagi na, Cervix Performed By: #### 9 1825, 34287 #### [facility] [address], [address] [place] [address] Vegetable Picker: Dallas Sanchez MD STATEMENT OF ADEQUACY: Normal [facility] Comment on above: Order Comment: FASTI NG:UNKNOWN FASTING: UNKNOWN Result Comment: Sati sfactory for evaluation. Endocervical/transformation zone component present. Performed By: #### 9 1826, 00585 #### [facility] [address], [address] [place] [address] Vegetable Picker: Dallas Sanchez MD Coding Summary.on 10-03-2021 Coding Summary. CD:[id number] XJb2vAz+PGhlYWQ+PE1 BKPHtU12hdRCciS6YW1 oPHV4XMQAOBTAKUP0FJ E7apKO5HGcfF1ImigPu NqbvpIQqQW17ERm2QXY 0iEhwAEtnmX5fsWDcQ8 b4ZmPvGD49zO88NQwjR WBgUyI2WuOggoavwNRb P3rtWrTppIIjCiz+PHR hYmxlIHdpZHRoPScxMD KbHjWsnZxwVM9cDp3hO GVyLWNvbGxhcHNlOiBj f2koNEZnRVinLS2yhMv mY0ZblGQ7JWFof2r7Kr 48dHI+AUUwEDL4vFslK Kqvz162RtOnq4dmIQF3 iTSyPGjwLJB1G88dw1R 3BMDpJKDjVHL2iYF0hM 7aaQgxjwcbU2WnkWFkY aR0HIM3pZJciQ9qlHea zjxxdN5ePoi+C00IQR8 VWXFXNH4ZFkg3J9ZnEi wvdHI+EA07POKtAI90h GOduBLvs8yioKc0LdMp SBVgNAQ8gKvgMHswk4Y yNJRfZ19mnMFlt5T5QC GgfToyuEItDpUguMQ6m S8oVNdnrlhyl2pqqlwj Lwdah5ujzt59oK51N04 oGVgeKFUpJSD6MQDkLS LxnOgfat4noJ0jWn8+I Caqp9fsf2njaNe8GyCb CRPoxqDstRsuHKM4f1O oUa16V3FifTwld0OwIn x0ol19mVEil9M8yAQ1I ProFCRgjA0bNRpzUuH0 PLVxFlHuzI33dUNlZLy iWp3pjEpkjHeeHQ1wFI SjqmubLCSxnZ0sJDVco WPmnGxySC2jMCKmcxzm x786DxRnLCC3IJMebLS cD0DefJ3wCkRoOKNmKO TjT9UreKWeJSnrH673J WikDvI0ENVidrGtL3Lg LNDwbFhbYgH2q0M3Mk5 Zy5JyqxsqJUQ8ESqfLF E9MrZ4DhTmMtE4D7SxP bc6CUUgeIzuXI2qA3Vt GHEidpevfoqwaWK7TXH bNSZlqX49iYHiCUdlVs 5bp1Y7u433GFQxZENue R89Xc4ikCqyRZCjxSUD yU2afppxi8wazzmwYuH fQFBtWOb7QRi0TVUzvL cyXrHwYBD2TuM8AGR7d XQfwJ6onPjsuargqE9g Oyc+W01lnM4jRPT9DYQ 3ugksWMTmeiWfVJ61ZN 51Q2DjBlyniIJhnOE+P CMyvsVlaMrgUE2jVkQe n2zvb2TjSVmoW9AnWWC bQMqrNxo1ZTWzRZO9wO Z3hG2iQLAjUJqei5C1q GW1M8ZeylEqta2cs5zn PHHiOSyxM26uyFJiu7M 0FSVduGP7DWVmzJerIc HffE14Vze+PGNvbGdyb 1IlBwvlg2cvr2pezYd4 IjMwJSIgdmFsaWduPSJ 9z7UrUu46Z95dWJbnFY RoPSIxNSUiIHZhbGlnb c7xiT3mZk2+PGNvbCB3 uMY5hS5lVBArAcO8USk rC177XlIljXFdYpgtm0 rvs7bflEi6YbMqYTCdk wVwcYtfPWQ0r2TvKm58 A81hTBwpHTCbAABcZVQ nVGIvsYoufp8mjB2pAo 8+JF6jb6hdmd37cJ48f HI+YKRjMJA2bNitSNsp ZXAfeU6rYKayGgP8NIS eLuXhaE17fFAiXAgqNd 5wrVvjvGddQN5wNIFzh ftoe023LmWmb4lhXDGk vWMkUSrmOPT1T34br6Z 7RMQkZUMsXUE8yLG5eI 1hbGlnbjogbGVmdDsgd rKccXbdNFwiMDlnE685 IHRvcDsnPlBhdGllbnQ xVhEwLQh5N9AtAml1EH CofZvpVN9qwQSnEMcwM k4hsEksqJsjMJ7nKIYu yfodq556CuHab9poODD jnQKiRQxxISZ7C25pw1 P0WWOlIAQaQHH1cVT9l E0ozUxpqtsemGGhxRhq rlDyoFydDPifSXttJ83 6IHRvcDsnPkJpcnRoIE OuySP8PE51KA33uWLkj 1Y4tBH6X6XeYTOhddks mjkxpCY0PIPnJOAwtA0 1Xg0phPnsLb6nDFAySZ D4HYZbiDPiY5AemS3aM fPfITKbPOYcQ6IasIQk BQodL218UAraEuO6KOR gsrSxF3IeBDRgiGcmTh O6n4K0Qb6NN5L0RR96Z I81eLYvg3B4cHE0W9Yr RZQdpcklgzddfMI7HEX yVXQoxT58If3duTbmVa 4rMJGmCUQ7PGDhsYTxP 7VdfT8sFcTfEYVdEXLu K4UriJImMUsuJ869HCg oFeV0DVXppoHtX9TpGP LysEwzEfO5a5E3Aw4LK Sd5MP61WB53nFRyx6V1 uLJ0B5EwPSGbmwfmood wcVF4HANmUTWgvC87Nm 5oaIcsPa4xNRAzZDS9M MOloKWcP2KlcY2cGfQt YZHcTIRhD0YleWLuDHm jP566KXnhHnH5IVWdhe TkL2TbYKCofZglHnC7r 4F1Xz8MWKPvQW80ZZR9 mJK9UD98CL12G3GzXus vdGFibGU+PHRhYmxlIH dpZHRoPScxMDAlJyBzd ReiNL5cGd7uUDQoKPLz nMwkqRQlMgZft7ptIFE aNQimUP2slPdvK2WgdL F6AIDoa4j1Le05X99xN 3JvdXA+MFCjhWY2wHR6 tI9mDnNsFyP9RCfnY71 4WtNxiZYkCjisv8gsx5 swdZc0EiP5FGHmltHni BidIAN5v1DzQy26K97x IHdpZHRoPSIxNSUiIHZ buKuemo6zlF7zBp2+PG EhsLJ4wYC1rB3iGxFnU xX7VSwzB811BcMbvNXw Vhceb0ocq5dtbAj7EvN sLAOzzlZteFjqPBG0h0 VrKv77A1XjxVksg3WqM ix1rw37hOLnm7Z4nYX4 M3EfURCwbddfgYLteCy oUJ7kRFVxzgubAPQlkO 2iGAWuX8q2FxWrCvB5F FyfY6RfaiU6IBNapDCy UJooCXG8Y50og0M4AON tYAQcBIG2rQL0jQ3qmV lnbjogbGVmdDsgdmVyd EyuEKlpFEykO657GGDl vDwgLDRktE6qEAPgnBR yxQlyKD3aJPQccppyOt tFTExFWSwgQlJFTkRBI Is2T6NnGvq2CWXovPex GF1wrRYaIGnmVr8anEa mtBkxPA3pGWTujvynNB LajG6qKUOseVZudEbxY A2xTVUmsjfln656CkUa IJZ0GJXxmBQuR3AfeR9 qLsWxRUIrKZLkU5JfeV TaRZjqI157XOtxPdC3X AFcywFnN0RbFRNdrLok CfL8w0P2Su3kNw9jDM2 jWGW0WD42VR67jVOfq7 W2fBE5I6KnASJotmzqg qukxQJ1KMKtNFXslK87 xYLfYZebIm0su5G9i14 6BGPsVDEoeD30Nm8jzV xbKWUvaQKTgC4xtigow 1dhxblwUyDdYQZxTUk2 QYu2TNTmqLqaYpXuNHW 9AnE6GGD3sLPdeS8ogJ blfyqpkJ1kYew+NTcgW CPcnnV1C0DzQgc3LTDl hHfbCR4bnQPoKGehAh5 cfSujmNmhXD5jGFMord anGZQfmG2rRKBpmLMlo OfeHZ0oJQGewmrrg627 OkTvDNT5FBNxnRHiF8N keA5nDkLqLYJjGQYeI4 SfcZRmNAybI657PVioV eY8LXCcatHbQ0CiQKAq bHhtBnB5r8X1Kw6XES5 inIF1O7FrEmu4PCClyB buAT5ygNGkVVvbYm1mz IjszRbfML6cGYCveepf QMWqxK0tDWPsqHLubSe jOE4zTVGizgpho445At LaQLV5MYGyqRIwV7Wzq K4aGpCxHTDaAXZmP5Ky fTSfGIjdP366ADdcQzK 3VBIlqkPaE5VsZPQyfB pzBaD3r8W6Ny1LzVRtA YSiMR20PU60KC43P0Uy PjwvdGFibGU+PHRhYmx lIHdpZHRoPScxMDAlJy TmlLujTP3yId3nVZIcH SGcvUgcqXMhZqWej8xi DAOzSSxcUH2rfUvhP9S ndFM6CVGtt8f3Ns63H4 9sV5IijVU+ETNsdAO3q DK2uP8uJnLeLiE2RKas F305HeLwpEMdNsxlo6w vj6oxbWq6OtFpRJWlpz IjsEcdNTJ9e7LaPx05U 29sIHdpZHRoPSIyMCUi RMBnlBkwtw8ajI9dXg4 +GVIlsKC0jUY8yW1nYe IlRtW1DKekI844EwMvq KMlLkwbD27eN0HczAW+ UDLjNme5VASrbVrfAG7 hbOCkUFhiEs3wMKK5Wo VzYeDwEKicS7SoBXLos sbhyvwiuRH8ZNJeFXUx rJ76Ip5tiRmiGn2iPKJ rKHN1VHFcxOQeK3PezW 3xWcYbEXByBNFuP3Eqn AJlWLasF002BSioWsG5 ABBtohLzL2IcQZLtsGz nAtB9v2R3Kf4IhZpltH BpQA3iYhBzUKo0Q3JyA yh6ZKAhtDzsJK8vtZNf TWvzKk3wbEtodJokVC8 qYLMlcptmm898OyGjm1 inNZKqrDBnQFltRAB4L 29jn9U0UWIzKVOkJSE8 kMG0sS1ddRifzjqtfVU mdDsgdmVydGljYWwtYW crM465QSAapElsPxGEB gy9D4RfWuh4OPJbrQuq UN2yiERzFLojLo8hyCw wvQctCU8wUBKqjantq9 73UpTzx2fkEYXqvAQqH CzrJCT9T30ed1T9HHGz KASlZHH2cML2tV7nbQe nbjogbGVmdDsgdmVydG rpLPqgHVoeY744FCXlf BgtRy5YLxf3E9QzTrd4 JZLxxGryIC7lzINlWVa qOn9zhZnphXjiWX4jZE Akwikkp707PfQnl4igI PZylOAoJFzoPOD6M26x k4Q6ELVpQBIySID3wGQ 9zI5fnUtuljvzlKHecQ sgdmVydGljYWwtYWxpZ 246IHRvcDsnPlBheWVy OjwvdGQ+HE96jw13J6Q zHlprFqf1ROTlTQK3iT S0sA4tKMNrSOkjt6Y2r DF0W6YqkrPprv7pw1df YXBz (more content not included)... Normal [facility] CHEMISTRYOrdered By: SYSTEM SYSTEM on 09-24-2021 Albumin [...] rate/Area] mL/min/1.73 m2 Normal >=59mL/min/1. [address] [facility] Chem S GFR/1.73 sq M.predicted among non-blacks MDRD (S/P/Bld) [Vol rate/Area] mL/min/1.73 m2 Normal >=59mL/min/1. [address] [facility] Chem S Globulin (S) [Mass/Vol] 2.7 [...] 09-24-2021 Albumin [Mass/Vol] 4.3 g/dL Normal 3.3-5.0 [facility] Comment on above: Performed By: #### 2 819641, [id number], 4738819 #### [facility] [address] [place] [address] Albumin/Globulin (S) [Mass conc ratio] 1.6 Normal 1.1-2.2 [facility] Comment on above: Performed By: #### 2 592441, [id number], [id number] #### [facility] [address] [place] [address] ALP [Catalytic activity/Vol] 52 Int._Unit/L Normal 21-98 [facility] Comment on above: Performed By: #### 2 907042, 39868769, 6112709 #### [facility] [address] [place] [address] ALT No additional P-5'-P [Catalytic activity/Vol] 25 Int._Unit/L Normal 6-46 [facility] Comment on above: Performed By: #### 2 345130, 81331344, [id number] #### [facility] [address] [place] [address] Anion gap [Moles/Vol] 11 mmol/L Normal 6-16 [facility] Comment on above: Performed By: #### 2 304217, [id number], 9604470 #### [facility] [address] [place] [address] AST [Catalytic activity/Vol] 22 Int._Unit/L Normal 5-43 [facility] Comment on above: Performed By: #### 2 792826, 95725279, 5040683 #### [facility] [address] [place] [address] Bilirubin [Mass/Vol] 1.3 mg/dL High 0.0-1.[address] [facility] Comment on above: Performed By: #### 2 370184, [id number], 0466576 #### [facility] [address] [place] [address] Calcium [Mass/Vol] 9.1 mg/dL Normal 8.9-11.1 [facility] Comment on above: Performed By: #### 2 067256, 81951643, 6096403 #### [facility] [address] [place] [address] Chloride [Moles/Vol] 102 mmol/L Normal 101-[address] [facility] Comment on above: Performed By: #### 2 851273, 36149537, 0909804 #### [facility] [address] [place] [address] CO2 [Moles/Vol] 26 mmol/L Normal 21-31 [facility] Comment on above: Performed By: #### 2 415358, 18391131, 8331619 #### [facility] [address] [place] [address] Creatinine [Mass/Vol] 0.6 mg/dL Normal 0.5-1.3 [facility] Comment on above: Performed By: #### 2 381417, 61498832, 8724523 #### [facility] [address] [place] [address] Globulin (S) [Mass/Vol] 2.7 g/dL Normal 1.4-4.0 [facility] Comment on above: Performed By: #### 2 210921, 10967708, 0371583 #### [facility] [address] [place] [address] Glucose [Mass/Vol] 107 mg/dL Normal 55-199 [facility] Comment on above: Result Comment: If t his glucose result represents a fasting glucose, interpretation should refer to the following reference range: 55-99 mg/dL Performed By: #### 2 537844, [id number], 5380988 #### [facility] [address] [place] [address] Potassium [Moles/Vol] 3.8 mmol/L Normal 3.5-5.3 [facility] Comment on above: Performed By: #### 2 850264, 68056960, 2463775 #### [facility] [address] [place] [address] Protein [Mass/Vol] 7.0 g/dL Normal 6.0-7.8 [facility] Comment on above: Performed By: #### 2 692821, 90531335, 7147702 #### [facility] [address] [place] [address] Sodium [Moles/Vol] 135 mmol/L Normal 135-145 [facility] Comment on above: Performed By: #### 2 357969, 55628569, 4361638 #### [facility] [address] [place] [address] Urea nitrogen [Mass/Vol] 15 mg/dL Normal 5-21 [facility] Comment on above: Performed By: #### 2 192937, 77819562, 2749495 #### [facility] [address] [place] [address] Urea nitrogen/Creatinine [Mass ratio] 25 No Units High 10-20 [facility] Comment on above: Performed By: #### 2 278015, 14108568, 8148858 #### [facility] [address] [place] [address] Consent for Treatmenton 08-31 Consent for Treatment [id number] D0#1.00CD:127 Normal [facility] Lipid Panelon 09-24-2021 Cholesterol [Mass/Vol] 245 mg/dL High 120-200 [facility] Comment on above: Performed By: #### 2 560977, 22566600, 2249959 #### [facility] [address] [place] [address] Cholesterol in HDL [Mass/Vol] 50 mg/dL Invalid Interpretation Code [facility] Comment on above: Result Comment: HDL > or equal to 60 mg/dL: Low cardiovascular risk HDL < 40 mg/dL : High cardiovascular risk Performed By: #### 2 539992, 78355441, 1585501 #### [facility] [address] [place] [address] Cholesterol in LDL [Mass/Vol] 174 mg/dL High <=129 [facility] Comment on above: Performed By: #### 2 377065, 76370921, 9513826 #### [facility] [address] [place] [address] Cholesterol in VLDL [Mass/Vol] 18 mg/dL Normal 7-40 [facility] Comment on above: Performed By: #### 2 878958, 58447162, 4000689 #### [facility] [address] [place] [address] Triglyceride [Mass/Vol] 89 mg/dL Normal <=149 [facility] Comment on above: Performed By: #### 2 811601, 11303530, 3074033 #### [facility] [address] [place] [address] Physician Orderon 09-24-2021 Physician Order [id number] C#1.00CD:127 Normal [facility] eGFRon 09-24-2021 GFR/1.73 sq M.predicted among blacks MDRD (S/P/Bld) [Vol rate/Area] mL/min/{1.73_m2} Normal >=59 [facility] Comment on above: Order Comment: Order added by Discern Expert. Result Comment: eGFR is race adjusted. AA=. Performed By: #### 2 321316, 10485036, 3598546 #### [facility] [address] [place] [address] GFR/1.73 sq M.predicted among non-blacks MDRD (S/P/Bld) [Vol rate/Area] mL/min/{1.73_m2} Normal >=59 [facility] Comment on above: Order Comment: Order added by Discern Expert. Result Comment: Cardroom Manager alexy kidney disease could be indicated at eGFR's of less than 60 mL/min/1.73m2. Kidney failure is indicated at less than 15 mL/min/1.73m2. Performed By: #### 2 266227, 88625132, 0928817 #### [facility] [address] [place] [address] Coding Summary.on 11-28-2020 Coding Summary. CD:[id number] GNh2yPn+PGhlYWQ+PE1 XVLKkH64hwUGmdP0TD7 zMGB7RBOTWZCRIAJ3KA W0abLQ1DXskP8YmuxKb EefbbAHmPO77ZGe4OPE 5iBrfYJzwyN8whYYwF1 l0UjEyJQ52vJ35CIouA IClXmV6ZyYvzlabvWIq N3ftVzShsLBeCuo+PHR hYmxlIHdpZHRoPScxMD NaKpNzrUalNH2oWd7uO GVyLWNvbGxhcHNlOiBj k5abULZhTNipPK7hiEg kT2DevBU0ZNYqn9c5Sg 48dHI+MRPsPOX5eUuyZ Cztf638EwVmf7xnHKK2 yXOnEUvhCEE9P01ok5H 7UXKhFBKiUWI2rCQ3xL 7akMhwjusiG8QjzOUpY qC1EXK7tVYadF0igCni nbupdX3bVst+C69UTO9 SULHUIG4CBec8W9JrFz wvdHI+IM80VDRrRX47i HSajLHjf6gneWn2PvNu TOGeRBL2iNxjAJkui2E zTJTdM51uzAVdx4R7GH XsgHhjkKZmRzVcuYC7h A0cZThsswfyi9jmrcwl Hxcae4mzhc05wF17H99 mSGiaYOUiWBJ9IKEjDM DbbDpjkt3waO9aHy2+I Owko3vxm4hkqXs4KgTa YKOlkgCcpTcvKOC2h6I uHb79A5MsoZszs2TqBo n4rd97gKAay1A2dNK4P AvaLBYdiL8kJCjwRhA6 BQHkAyGlfG90hAXbMPv eZi3taZlwuSukCB2aGV QsfuchNSDxjT6vGEIpz ZPmeCduPQ6tOSYohspe h450CaYyOKR9JLYziKK sK1StyO8dUsDgYLWdZK PsD0WnnAJwGOqjX368S DatAmE4KGLussNlI9Jo XLZpjJiaByT6a1G7De1 Em1QdhmdaUQH0HAeqEB O9PhLaRhBjNfW0U1LvO sd9GENjmThgYJ2gD1Ql FPRqdwcgrejbpLJ6UYC pOZTyvE32mDBlHHqwId 2so8U0y299NSUaLVZwk K45Fr5arDysAIYccEFA qS8jikqwn4bompuvAfK oWRBuCXc3FXb9EKGewM ahXtDkYRZ5InW4JAL0d XMltT5bgSnifjvtpJ0k Oyc+G65kqB7hSHM5NME 4piqkGVFxfkQsSI98UX 89X5KjCuapzSZixGQ+P AGxdqEmjWnqWK1iHvQz w5tco5NdZOmyY2DxWQP uOXwjIbk1SWReVAU5lF P6vD0sEEJjDFjxz1V2g ZJ9O5KbkqIrfx3hu1eb ZGLePJtlR34klAYpr4M 2FSJihMP2EFOnfChiZn PfrA85Nsy+PGNvbGdyb 4QkFwpcn1ldl7pvgZk1 IjMwJSIgdmFsaWduPSJ 8d7NoQn23M05fQDnxMA RoPSIxNSUiIHZhbGlnb d0heZ8oUu1+PGNvbCB3 eZO6pE7gELAzZcE2YEk yU672VsHzfVGgPhppd7 ise9jaoQf7HsQgTDGdd aAviWabLIC5i6JuUk80 D01yDNfmJBBeVYYpQTZ uIIMtfAzbva3ljB4oXj 8+EA0hf2orfp86wG67m HI+FPMiWKE5vWwoIQyl XFImfJ1vLFblRjK3NCV iBeJvfT88pWJrWOelPv 8shEeojDqsFF7nXDAjf kmlg763LwYqe1jyACRm jCLxVBdqZUI3W24ab9T 0RBErEAPpENF6tZF6mT 1hbGlnbjogbGVmdDsgd kAreLsvWBxuBIkbO496 IHRvcDsnPlBhdGllbnQ nUmBiTJn7A5DlJeq5FH CdbLrtEB0wzACcCKhwS l6gwGmbzAafXU7yHYFv pntkc337XtKzs0uyNLD qfXEeOMtmXIP5S82ke9 O9WVIyMEWfCLK9oUL7j B2qlAmjywuyrKYikKwh bqAqfEstZLvcSRzdS91 6IHRvcDsnPkJpcnRoIE HlxJY5NL19IO75jVZht 3J9pPF8M5WePZHizdqz jbevbPP7SQVjUYVvbS9 2Fj6gtAboId3sODEaVW K5KMRyrIQlN0DbyT2nP eIsRWZgFCLnI9YkePPr TLmpN171RAtlIpJ7DHE wymJcZ3LgMKEyxNjiZn N8l2M2Bj0EC1N2BI64A X09mUSen3O6cOT4F2Wo LDWvaafxvjcxkHA2TTR bLYYpbJ68Rl4saBrxKm 5nNPWsRLR8QNGzaEPiV 5QsdW3yHxYhGGRgRLEw X4BiuMUfMGnmL901DZx nZcN9VKCpxqWuO2QyHG QveSalYuU3u0N9Rs7TF Lf1NA09AV85vZMal2D8 tUB3M6AkAFGbmhfvwjd tmOB2WTTjJIGfbV47Tf 8qeMgaRp4jVZLbGZP5J BGjbWYxV9HwsU9pUzMz SFGyWBAcA1RezZFmWUq gT676SKduBkG4TWWwkc ZkZ2ZgJKLfnWwkGkO7i 0V5Mk1PCMGrHU49JZK2 vPX9DF57HA88M8JwAwe vdGFibGU+PHRhYmxlIH dpZHRoPScxMDAlJyBzd ZvwTI3kWc3rVYBoBHTz eDetoNHmRgWas5udSMY lBKdqDJ6gtEvuR4BodJ M4FCTsy2e5En95Q14kE 3JvdXA+HQFcoJZ9dLF4 jA3oXtZpRuC9LLmtP94 8YyKeqCPmDagka2xrr2 iqrDq3UsK4BLAjxmDoi PwpHWU1j9QkNy18L94n IHdpZHRoPSIxNSUiIHZ xdLjamr7chS3vNv8+PG QbdEZ1lJE7pO2zGgBlK aV5LBwhV216WnMaiXZs Rkgas1vib9ivlXy0XkR qVLGnleNofAffZAZ6o6 HoTg47L0KtsOxbz4FeX rp8vh39kQLxz0X7fAA2 X9HjIFGemxbmzPXexTh uQB6hZULxrjpqPGQyjS 4cGRGtW8n4GeRcSeJ0T QwtI0GowdH8EMQdxVDh YTtgSZV8I79vn3C4MOR sLTWlNQH1wOS6bA3uyC lnbjogbGVmdDsgdmVyd VmmTAnhSZkcU379GHRr lObyDPXasF0yAFNqvIJ gwEvuOH2kWWEvpzlqNz tFTExFWSwgQlJFTkRBI Zp8N0HvOib8XKAwnVhc XM9qtEOwHJmgNr8sdJv lcFldCZ1dTYXxlghhRN RejS9hREWnwDMsbUgyO D1xYLHjbrdyt886LfPm VSB5PCCruKEyM7FedS9 qTmCuWPSqWWJoK5RtkM RbGUhmB666YRuoMkB4P NBlnjVlM4PoRYLylLyg CfV5v2M4Hm7pLx3pGX9 pXUS3FS59FK11wNPsd8 Q9gRM9Z5VyAAImhiome nnczDL6OTRjAKSkoX80 tCYbBGpwVi0sm1X8a49 9HKJxFPAodL54Xp2kiK axLGLfaDDTbT6cajlnp 1mukiscFuKlXNFbGWy2 IGk3LBRzlYbaOnSyXGL 1TdW5AMP0jBVdiG1thY nuzfilyU3gXfi+NTYgW XSeszF2V4PhCau8YFIj qHnxSS6cwMTyKTwuNp8 plYzkcRznLO8mMSZnsz dxMATgkT6oLHNwaGWdv MqdVE5nCCTipibcn955 MaGfNAJ7WMHimKCwZ4U zpN5cPnJaSHDnWTWwK1 VooGQnUCmvB980YQtuL tB9WFGejeGlK2KoCRFw iWsoUnS0q2J8Sx8RKM6 fjUB9Y8GiPcx6PXMdcP ipTW5suKMpMSjuSm3el PpbvUydXF6dQRBnwbeg HCIwkH7eHAWweCRjiCz cNJ7sATYqdecsp682Np AiIMZ9DDKijEXvS1Jvw S6rMgEgVJJgKMMgU8Ct bBHiQWczS016WAttKlS 6RPTwkfOjT9UsLQStkD tfIsV6h2I0Nc8VgLUjC DNyOL31UX39OK41O6Et PjwvdGFibGU+PHRhYmx lIHdpZHRoPScxMDAlJy WdnNagZF8eOm8tWBCfK XNjcKhbwCScGnSqv8ll DSCtLRbnCX8phGndH6A pmSD8ZARwc5r8Em09U4 8jS2PffQC+XLWzvKB7m XS9mR5yFsBaCbY5NGtj C345UmCmsDTvHgvwp7y mu9qvhSq2EoLgGZLqml PprHhoKHW2k3RiFh10T 29sIHdpZHRoPSIyMCUi VHWicJymnq2ruL7uRm0 +PDFocWN8aMY1oD4qKa JwBoF3EOxkT278AtDgo PDyNjtuT06zR3RcmUJ+ HIFyVsj7UZJixBgpXY1 lbHIqOCpdQg6sHFG3Dk KoNhBuMKopB7HnUTRvk lzstfjclVF1KQPjCIOh qW57Ki2flMkaFq1qSLR iVOO0LEMvcBDlK2XszT 5fOgYrFLKjTYHiX5Wby RKuZRdkJ952JYqqPhC3 PAHpacZjF3GgPELnmBq lAkW7e5T6Bx9OsQakcX OdXN4fRmHeNHc4A8NjI jr3FZNonEsvMP1hhXGz ZTxfRp6maQboaZjmWE9 dWDUnazeql426QzYnl5 tiHCUrdVYxSZoxDXM9E 19ys5Q3KXXzQLGgZQC2 zDS9hN3pvWojtcsqaIC mdDsgdmVydGljYWwtYW nsI364WIRboJugHzQMJ wg3R4MfQed8PYIpnTjo PM1dxPHnZDxkNe9epJt bfQpsYL4qAVFuassyj7 64FeXxp6pqKQJlyIOjO CywFIZ4O41al9V5AKYv SXVsKGK1mIP4mN6nvGs nbjogbGVmdDsgdmVydG hnRLynWLjhP564JMTvg FptWa2ZNsv1X5WjJhk6 JJTxfJvnWR4cmRAjFUn lOx2ztTvmhBxvNO2xMX Udmtcwf220OeIkr3vfM FEpqAImNNnsXQM8P22t q7S0ASYwCUTjWLF5fNG 0zW7hgCybbqwftHIbaZ sgdmVydGljYWwtYWxpZ 246IHRvcDsnPlBheWVy OjwvdGQ+IA03xp07J0M pSrblMjc1DKSjXRB9xQ Z9oG9uNCJwTCqjc5Q7j LC5C5PixoQbjx1jw5iv YXBz (more content not included)... Normal [facility] Auto Diffon 11-19-2020 Basophils/100 WBC (Bld) 0.7 % Normal 0.0-2.0 [facility] Comment on above: Order Comment: Order Added by Discern Expert. Performed By: #### 2 [id number], [id number] #### [facility] [address] [place] [address] 50155 Basophils/Leukocytes Auto (Bld) [Pure # fraction] 0.0 E9/L Normal 0.0-0.2 [facility] Comment on above: Order Comment: Order Added by Discern Expert. Performed By: #### 2 [id number], [id number] #### [facility] [address] [place] [address] 63060 Eosinophils/100 WBC (Bld) 9.0 % High 0.0-8.0 [facility] Comment on above: Order Comment: Order Added by Discern Expert. Performed By: #### 2 [id number], [id number] #### [facility] [address] [place] [address] 14014 Eosinophils/Leukocyt es Auto (Bld) [Pure # fraction] 0.5 E9/L Normal 0.0-0.5 [facility] Comment on above: Order Comment: Order Added by Discern Expert. Performed By: #### 2 [id number], [id number] #### [facility] [address] [place] [address] 86511 Lymphocytes/100 WBC (Bld) 30.0 % Normal 14.0-50.0 [facility] Comment on above: Order Comment: Order Added by Discern Expert. Performed By: #### 2 [id number], [id number] #### [facility] [address] [place] [address] 38277 Lymphocytes/Leukocyt es Auto (Bld) [Pure # fraction] 1.7 E9/L Normal 1.0-4.0 [facility] Comment on above: Order Comment: Order Added by Discern Expert. Performed By: #### 2 [id number], [id number] #### [facility] [address] [place] [address] Monocytes/100 WBC (Bld) 7.6 % Normal 4.0-14.0 [facility] Comment on above: Order Comment: Order Added by Discern Expert. Performed By: #### 2 [id number], [id number] #### [facility] [address] [place] [address] Monocytes/Leukocytes Auto (Bld) [Pure # fraction] 0.4 E9/L Normal 0.2-1.0 [facility] Comment on above: Order Comment: Order Added by Discern Expert. Performed By: #### 2 [id number], [id number] #### [facility] [address] [place] [address] 09853 Neutrophils/100 WBC (Bld) 52.7 % Normal 36.0-75.0 [facility] Comment on above: Order Comment: Order Added by Discern Expert. Performed By: #### 2 [id number], [id number] #### [facility] [address] [place] [address] 72083 Neutrophils/Leukocyt es Auto (Bld) [Pure # fraction] 2.9 E9/L Normal 2.0-7.5 [facility] Comment on above: Order Comment: Order Added by Discern Expert. Performed By: #### 2 [id number], [id number] #### [facility] [address] [place] [address] 06761 CBC w/ Auto Diffon Erythrocyte distribution width (RBC) [Ratio] 12.8 % Normal 10.9-14.2 [facility] Comment on above: Performed By: #### 2 [id number], [id number] #### [facility] [address] [place] [address] 03367 Hematocrit (Bld) [Volume fraction] 42.2 % Normal 34.0-46.0 [facility] Comment on above: Performed By: #### 2 [id number], [id number] #### [facility] [address] [place] [address] 61716 Hemoglobin (Bld) [Mass/Vol] 14.4 g/dL Normal 12.0-16.0 [facility] Comment on above: Performed By: #### 2 [id number], [id number] #### [facility] [address] [place] [address] 51942 MCH (RBC) [Entitic mass] 30.5 pg Normal 27.0-34.0 [facility] Comment on above: Performed By: #### 2 [id number], [id number] #### [facility] [address] [place] [address] 44419 MCHC (RBC) [Mass/Vol] 34.2 g/dL Normal 31.4-36.0 [facility] Comment on above: Performed By: #### 2 [id number], [id number] #### [facility] [address] [place] [address] 12668 MCV (RBC) [Entitic vol] 89.3 fL Normal 80.0-100.0 [facility] Comment on above: Performed By: #### 2 [id number], [id number] #### [facility] [address] [place] [address] 47555 Platelet mean volume (Bld) [Entitic vol] 8.7 fL Normal 6.4-10.8 [facility] Comment on above: Performed By: #### 2 [id number], [id number] #### [facility] [address] [place] [address] 10462 Platelets (Bld) [#/Vol] 178.0 E9/L Normal 150.0-500.0 [facility] Comment on above: Performed By: #### 2 [id number], [id number] #### [facility] [address] [place] [address] 63464 RBC (Bld) [#/Vol] 4.7 E12/L Normal 4.3-5.9 [facility] Comment on above: Performed By: #### 2 [id number], [id number] #### [facility] [address] [place] [address] 21687 WBC corrected for nucl RBC Auto (Bld) [#/Vol] 5.5 E9/L Normal 4.0-11.0 [facility] Comment on above: Performed By: #### 2 [id number], [id number] #### [facility] [address] [place] [address] Consent for Treatmenton 10-31 Consent for Treatment [id number]#1.00CD:127 Normal [facility] Physician Orderon 11-19-2020 Physician Order [id number] 30#1.00CD:127 Normal [facility] Vital Signs Date Time Vital Sign Value Performing Clinician Mallorie koo 07-19-2024 15:02-0500 Body mass index (BMI) [Ratio] 28.57 kg/m2 Mirna Nataprawira DO Work Phone: [facility] 07-19-2024 15:02-0500 Body weight 80.29 kg Mirna Nataprawira DO Work Phone: [facility] 07-19-2024 15:02-0500 Diastolic blood pressure 78 mm[Hg] Mirna Nataprawira DO Work Phone: [facility] 07-19-2024 15:02-0500 Systolic blood pressure 126 mm[Hg] Mirna Nataprawira DO Work Phone: [facility] 05-06-2024 08:22-0500 Body height 167.6 cm Cleopatra SADLER Work Phone: [facility] 05-06-2024 08:22-0500 Body mass index (BMI) [Ratio] 28.5 kg/m2 Cleopatra SADLER Work Phone: [facility] 05-06-2024 08:22-0500 Body temperature 98.4 [degF] Cleopatra SADLER Work Phone: [facility] 05-06-2024 08:22-0500 Body weight 80.11 kg Cleopatra SADLER Work Phone: [facility] 05-06-2024 08:22-0500 Diastolic blood pressure 82 mm[Hg] Cleopatra SADLER Work Phone: [facility] 05-06-2024 08:22-0500 Heart rate 85 /min Cleopatra SADLER Work Phone: [facility] 05-06-2024 08:22-0500 SaO2% (BldA) [Mass fraction] 98 % Cleopatra Bowie PA Work Phone: [facility] 05-06-2024 08:22-0500 Systolic blood pressure 124 mm[Hg] Cleopatra Bowie PA Work Phone: [facility] Encounters Encounter Date Encounter Type Care Provider Facility Start: 02-23-2025 [place] [address] Facility:[facility] Start: 08-11-2024 End: 08-11-2024 Refill Tyree [...] Start: 06-08-2024 End: 06-08-2024 ambulatory Cheko SADLER Facility:[facility] Start: 05-17-2024 End: 05-17-2024 Telephone encounter Cleopatra J Yessi PA Work Phone: [facility] Start: 05-06-2024 ambulatory Gabbie Gotti y:[facility] Start: 05-06-2024 End: 05-06-2024 ambulatory CLEOPATRA BOIWE Not Available Start: 05-06-2024 End: 05-06-2024 Patient encounter procedure Cleopatra SADLER Work Phone: [facility] Start: 05-06-2024 End: 05-06-2024 [...] tympanic membrane Start: 01-20-2023 End: 01-20-2023 ambulatory [facility] Work Phone: Start: 01-20-2023 End: 01-20-2023 Patient encounter procedure [facility] Work Phone: Start: 09-24-2021 End: 09-24-2021 Patient encounter procedure Emma Buchanan [facility] Procedures Date Procedure Procedure Detail Performing Clinician Start: 05-06-2024 Microscopic observat ion [Identifier] in Cervix by Cyto stain Cleopatra SADLER Work Phone: Start: 01-20-2023 Screening mammography Start: 06-21-2021 Mammography Cleopatra SADLER Work Phone: Polyp of vocal cord (disorder) Emma Buchanan Plan of Treatment Date Care Activity Detail Author Start: 01-09-2028 Screening for malign ant neoplasm of cervix [facility] Start: 05-06-2027 Screening for malign ant neoplasm of cervix Pap Smear [facility] Start: 05-17-2025 End: 05-17-2025 Patient encounter procedure 05/17/2025 11:15 AM EST Office Visit [facility] [address] [address] Mirna Pisano, [address] [address] [facility] Start: 11-19-2024 Screening for malign ant neoplasm of colon [facility] Start: 07-19-2024 End: 07-19-2024 Patient encounter procedure 07/19/2024 3:00 PM EST Office Visit [facility] [address] [address] Mirna Pisano, [address] [address] Arrived [facility] Comment on above: Arrived Start: 06-14-2024 End: 06-14-2024 Patient encounter procedure 06/14/2024 2:15 PM EST Office Visit [facility] [address] [address] Mirna Pisano DO [address] [address] [facility] Start: 05-06-2024 End: 05-06-2025 CBC W Auto Differential panel - Blood CBC and differential Lab Routine High-renin essential hypertension (CMS/HCC) Mixed hyperlipidemia (CMS/HCC) Expected: 05/06/2024 (Approximate), Expires: 05/06/2025 [facility] Comment on above: Expected: 05/06/2024 (Approximate), Expires: 05/06/2025 Start: 05-06-2024 End: 05-06-2025 Comprehensive metabolic 2000 panel - Serum or Plasma Comprehensive metabolic panel Lab Routine High-renin essential hypertension (CMS/HCC) Mixed hyperlipidemia (CMS/HCC) Expected: 05/06/2024 (Approximate), Expires: 05/06/2025 [facility] Comment on above: Expected: 05/06/2024 (Approximate), Expires: 05/06/2025 Start: 05-06-2024 End: 05-06-2025 Lipid 1996 panel - Serum or Plasma Lipid panel Lab Routine Mixed hyperlipidemia (CMS/HCC) Expected: 05/06/2024 (Approximate), Expires: 05/06/2025 [facility] Comment on above: Expected: 05/06/2024 (Approximate), Expires: 05/06/2025 Start: 05-06-2024 End: 07-07-2025 MG Breast - bilateral Screening Bilateral screening mammogram Imaging Routine High-renin essential hypertension (CMS/HCC) Expected: 05/06/2024 (Approximate), Expires: 07/07/2025 [facility] Comment on above: Expected: 05/06/2024 (Approximate), Expires: 07/07/2025 Start: 05-06-2024 End: 05-06-2025 THINPREP TIS PAP AND HPV MRNA E6/E7 WITH REFLEX TO HPV 16,18/45 THINPREP TIS PAP AND HPV MRNA E6/E7 WITH REFLEX TO HPV 16,18/45 Pathology and Cytology Routine Screening for cervical cancer Well woman exam with routine gynecological exam Expected: 05/06/2024 (Approximate), Expires: 05/06/2025 [facility] Work Phone: Comment on above: Expected: 05/06/2024 (Approximate), Expires: 05/06/2025 Start: 06-21-2022 Screening for malign ant neoplasm of breast Mammogram [facility] Start: 12-03-1984 Screening for malign ant neoplasm of cervix Pap Smear [facility] Start: 1965 Screening for malign ant neoplasm of colon [facility] Immunizations Immunization Date Immunization Notes Care Provider Fa constance 05-13-2021 Covid (Moderna) [facility] 07-27-2020 Covid (Moderna) [facility] 06-29-2020 Covid (Moderna) [facility] 05-13-2018 influenza, seasonal, injectable [facility] 06-23-2001 hepatitis A and hepa titis B vaccine [facility] Payers Date Payer Category Payer Unknown [id number] 2024 Self-pay [id number] 2022 Private Health Insurance [facility] [id number] 2022 Unknown [id number] 1965 Unknown [id number] 1965 Unknown [id number] Unknown ANTHEM [id number] Unknown [id number] Unknown H EMP HLTH D O NOT USE [id number] Unknown [id number] Unknown [id number] Unknown [id number] Social History Date Type Detail Facility Start: 05-28-2019 End: 01-20-2023 Tobacco smoking status Ex-smoker (finding) [facility] Start: 01-07-2023 End: 07-19-2024 [facility] Start: 1965 Sex Assigned At Female [facility] History of tobacco use Current smoker [facility] [...] Diagnosis Date History of being hospitalized 05/31/2019 [facility] ER- Influenza A/pneumonia Past Surgical History: [...] 2 Para 1 Para Allergies Allergen Reactions [place] [employer] Anaphylaxis Doxycycline Hives and Photosensitivity Erythromycin [...] DNA test positive documented in this encounter [facility] 06-13-2024 Telephone encounter Note completed [facility] 06-13-2024 Miscellaneous Notes completed documented in this encounter [facility] 05-17-2024 Telephone encounter Note Discussed pap test with patient, pap was normal however HPV was positive, patient had history of abnormal pap and discussed referral to housing inspectors for further eval, based on age and criteria, patient agreed will put in referral Referral to housing inspectors [place] [facility] 05-17-2024 Miscellaneous Notes Discussed pap test with patient, pap was normal however HPV was positive, patient had history of abnormal pap and discussed referral to housing inspectors for further eval, based on age and criteria, patient agreed will put in referral Referral to housing inspectors [place] documented in this encounter [facility] 05-06-2024 History of Presen t illness [...] mg, Oral, Daily ALLERGIES: Allergies Allergen Reactions [place] [employer] Anaphylaxis Doxycycline Hives and Photosensitivity Erythromycin [...] antibiotic prescription will be sent to [facility] in [place] to manage the infection. She is advised [...] be printed for her to complete at [facility]. Assessment/Plan Problem List Items Addressed This [...] Cancer Screening 11/19/2024 documented in this encounter [facility] Evaluation + Plan note No data available for this section [facility] Evaluation note No assessment inform ation available [facility] Work Phone: Evaluation note Diagnosis High-renin essential hypertension (CMS/HCC)- Primary Unspecified essential hypertension Screening for cervical cancer Screening for malignant neoplasm of the cervix Well woman exam with routine gynecological exam Routine gynecological examination Mixed hyperlipidemia (CMS/HCC) Mixed hyperlipidemia Breast cancer screening by mammogram Non-recurrent acute suppurative otitis media of right ear without spontaneous rupture of tympanic membrane documented in this encounter [facility]* Diagnosis 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- Primary documented in this encounter [facility]* Diagnosis Mixed hyperlipidemia (CMS/HCC) Mixed hyperlipidemia documented in this encounter [facility]* Diagnosis Encounter to discuss test results- Primary Other specified counseling 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 documented in this encounter [facility]* Diagnosis Hypokalemia- Primary Hypopotassemia documented in this encounter [facility] Discharge instructions No data available for this section [facility] Summary Purpose Family History No Family History Records FoundNo Family History Records FoundNo Family History Records FoundNo Family History Records Found Advance Directives No Advanced Directives Records FoundNo Advanced Directives Records FoundNo Advanced Directives Records FoundNo Advanced Directives Records Found Chief Complaint and Reason for Visit Chief Complaint SCREENING Additional Source Comments INFORMATION SOURCE (unrecogn ized section and content) DATE CREATED AUTHOR 10/04/2021 [facility] DATE CREATED AUTHOR AUTHOR'S ORGANIZ ATION 05/14/2024 [facility] DATE CREATED AUTHOR AUTHOR'S ORGANIZ ATION 07/21/2024 [facility] EPIC DATE CREATED AUTHOR AUTHOR'S ORGANIZ ATION 02/18/2025 [facility] Care Teams (unrecognized sec tion and content) Team Status: Active Member Role Status Dates JAMIE BUCHANAN Family Provider Active EMMA BUCHANAN Primary Care Provider Active Team Status: Inactive Member Role Status Dates DEWAYNE VALENTIN Primary Care Provide r, Attending Provider, Referring Provider Active Weigher Packing Relationship Specialty Start Date End Date Emma Buchanan, DO PCP - General Family Medicine 10/07/22 Weigher Packing Relationship Specialty Start Date End Date Emma Buchanan Germain, DO PCP - General Family Medicine 10/07/22 Weigher Packing Relationship Specialty Start Date End Date Emma Buchanan Germain, DO PCP - General [facility] Medicine 10/07/22 Weigher Packing Relationship Specialty Start Date End Date Tyree Sheppard MD [address] [place] [address] PCP - [facility] 07/19/24 Weigher Packing Relationship Specialty Start Date End Date Tyree Sheppard MD [address] [place] [address] PCP - [facility] 07/19/24 Goals (unrecognized section and content) Goals [...] BE BASED ON THE PRIMARY CLINICAL RECORDS. [employer] provides no warranty or guarantee of the accuracy or completeness of information in this document.
--- OUTSIDE RECORDS SUMMARY | 2025-02-24 07:28 | XMS RPT_ITS | CCD ---
Author Organization [facility] Informat ion Partnership [employer] MA[employer] [facility] Care Team Providers Care Store Keeper Name Role Phone Emma Buchanan Primary Care Physician Emma Buchanan DO Primary Care Provider UnaMIRNA Maguire Attending Unavailable CLEOPATRA BOWIE Attending Unavailable Tyree Sheppard MD Primary Care Provider [phone] Attending Unavailable Gabbie Ayala Attending Unavailable TERESITA1 Referring Unavailable TERESITA1 Attending Unavailable TERESITA1 Primary Care Unavailable Allergies Allergy Classification Reported Allergen(s) Allergy Type Date of Onset Reaction(s) Facility (1 source) Clindamycin; Translations: [clindamycin] Drug Allergy [facility] (9 sources) Doxycycline; Translations: [doxycycline] Drug Allergy Allergy - specialty (qualifier value), Hives, Photosensitivity [facility] (9 sources) Erythromycin; Translations: [erythromycin] Drug Allergy Hives [facility] (9 sources) Sulfamethoxazole / Trimethoprim; Translations: [sulfamethoxazole-t rimethoprim] Drug Allergy Hives, Photosensitivity, Swelling [facility] (1 source) [place] Propensity to adverse reactions to substance [facility] (8 sources) Nitrofurantoin Drug Allergy Hives [facility] (8 sources) orange allergenic extract Drug Allergy 972 Anaphylaxis [facility] (1 source) Doxycycline Drug Allergy [facility] (1 source) Erythromycin Drug Allergy [facility] (1 source) [place] juice Drug allergy (disorder) [facility] (1 source) Sulfamethoxazole Drug Allergy [facility] (1 source) Trimethoprim Drug Allergy [facility] Medications Current Medications Medication Drug Class(es) Dates Sig (Normalized) Sig (Original) Albuterol (1 source) beta2-Adrenergic Agonist Start: 05-31-2019 take 2.5 mg by inhalation every six hours for wheezing albuterol 0.083% Inh Jolanta 3 mL 2.5 mg, 3 mL, Inhalation, q6hr for wheezing, 25 EA, Refill(s) 0, [facility] Start Date: 05/31/19 Status: Ordered albuterol [...] Reporton 0 06-08-2024 Urgent Care Visit Report [facility] [address], [address] [place] [address] OFFICE VISIT Date of Service: 06/08/24 MR#: [id number] Acct: [id number] Name: SHEY BORRERO Rep #: [id number] : 1965 Provider: DOROTEO Tay Age/Sex: 58/F Location: [facility] Status: Signed Intake Vital Signs 06/08/24 17:37 BP 144/86 H Blood Pressure Location Lt brachial Position Sitting Respiration 17 Pulse 110 H Pulse Source NIBP Temp 97.9 F Temp Source Oral Pulse Oximetry (%) 98 Oxygen Delivery Method room air Intake Visit Reasons: COUGH, CONGESTION Chief Complaint: cough, congestion Director Of Donor Relations Required: No Is patient in pain?: No [...] improve, sooner (more content not included)... Normal [facility] HPV GENOTYPES 16,18/45on HPV 16 RNA Not detected Normal NOT DETECTED [facility] Comment on above: Performed By: #### 9 182, 19408 #### [facility] [address], [address] [place] [address] Skilled Helper: Dallas Sanchez MD HPV 18/45 RNA Not detected Normal NOT DETECTED [facility] Comment on above: Result Comment: Meth odology: Fleet Service Manager Mediated Amplification Cervical sources are required for HPV testing. If a vaginal source from a patient who has had a total hysterectomy with removal of cervix was submitted, please contact the testing laboratory for alternative testing options. Performed By: #### 9 182, [id number] #### [facility] [address], [address] [place] [address] Skilled Helper: Dallas Sanchez MD THINPREP TIS PAP AND HPV mRN A E6/E7 WITH REFLEX TO HPV 16,18/45on 05-11-2024 CLINICAL INFORMATION: Normal [facility] Comment on above: Order Comment: FASTI NG:UNKNOWN FASTING: UNKNOWN Result Comment: BABS LEBLANC Performed By: #### 9 182, 30822 #### [facility] [address], [address] [place] [address] Skilled Helper: Dallas Sanchez MD COMMENT Normal [facility] [...] clinical information. Performed By: #### 9 182, 63430 #### [facility] [place] [address] Skilled Helper: Dallas Sanchez MD COMMENT: Normal [facility] Comment on above: Order Comment: FASTI NG:UNKNOWN FASTING: UNKNOWN Result Comment: This Pap test has been evaluated with computer assisted technology. Performed By: #### 9 182, 99615 #### [facility] [place] [address] Skilled Helper: Dallas Sanchez MD [employer] CONSULTANT: Normal [facility] Comment on above: Order Comment: FASTI NG:UNKNOWN FASTING: UNKNOWN Result Comment: DAA, CT(ASCP) CT Screening Location: [place] [address] Performed By: #### 9 182, 33631 #### [facility] [place] [address] Skilled Helper: Dallas Sanchez MD HPV mRNA E6/E7 Detected Abnormal Not Detected [facility] Comment on above: Order Comment: FASTI NG:UNKNOWN FASTING: UNKNOWN Result Comment: Meth odology: Fleet Service Manager-Mediated Amplification This assay detects E6/E7 viral messenger RNA (mRNA) from 14 high-risk HPV types (16,18,31,33,35,39,45,51,52,56,58,59,66,68). Cervical sources are required for HPV testing. If a vaginal source from a patient who has had a total hysterectomy with removal of cervix was submitted, please contact the testing laboratory for alternative testing options. For additional information, please refer to http://education.[employer]/faq/YTA057s1 (This link if provided for information/ educational purposes only.) Performed By: #### 9 182, 72653 #### [facility] [place] [address] Skilled Helper: Dallas Sanchez MD INFECTION: Normal [facility] Comment on above: Order Comment: FASTI NG:UNKNOWN FASTING: UNKNOWN Result Comment: Shif t in vaginal lamine suggestive of bacterial vaginosis. Performed By: #### 9 182, 73093 #### [facility] [place] [address] Skilled Helper: Dallas Sancehz MD INTERPRETATION/RESUL T: Normal [facility] Comment on above: Order Comment: FASTI NG:UNKNOWN FASTING: UNKNOWN Result Comment: Cyto logy Results: Negative for intraepithelial lesion or malignancy. Performed By: #### 9 1825, 03558 #### [facility] [address], [address] [place] [address] Skilled Helper: Dallas Sanchez MD LMP: Normal [facility] Comment on above: Order Comment: FASTI NG:UNKNOWN FASTING: UNKNOWN Result Comment: N/G Performed By: #### 9 1825, 82526 #### [facility] [address], [address] [place] [address] Skilled Helper: Dallas Sanchez MD PREV. BX: Normal [facility] Comment on above: Order Comment: FASTI NG:UNKNOWN FASTING: UNKNOWN Result Comment: N/G Performed By: #### 9 1825, 43806 #### [facility] of [address], [address] [place] [address] Skilled Helper: Dallas Sanchez MD PREV. PAP: Normal [facility] Comment on above: Order Comment: FASTI NG:UNKNOWN FASTING: UNKNOWN Result Comment: N/G Performed By: #### 9 1825, 32683 #### [facility] [address], [address] [place] [address] Skilled Helper: Dallas Sanchez MD REVIEW [employer] CONSULTANT: Normal [facility] Comment on above: Order Comment: FASTI NG:UNKNOWN FASTING: UNKNOWN Result Comment: LLT, CT(ASCP) CT screening location: [place] [address]. Performed By: #### 9 1825, 83200 #### [facility] [address], [address] [place] [address] Skilled Helper: Dallas Sanchez MD SOURCE: Normal [facility] Comment on above: Order Comment: FASTI NG:UNKNOWN FASTING: UNKNOWN Result Comment: Vagi na, Cervix Performed By: #### 9 1825, 41601 #### [facility] [address], [address] [place] [address] Skilled Helper: Dallas Sanchez MD STATEMENT OF ADEQUACY: Normal [facility] Comment on above: Order Comment: FASTI NG:UNKNOWN FASTING: UNKNOWN Result Comment: Sati sfactory for evaluation. Endocervical/transformation zone component present. Performed By: #### 9 1826, 40891 #### [facility] [address], [address] [place] [address] Skilled Helper: Dallas Sanchez MD Coding Summary.on 10-03-2021 Coding Summary. [id number] XPj7eLz+PGhlYWQ+PE1 VHJXaC52wrUPhbD6AS2 qPVX5UYYYSGHDAYA3ZB Q5jbGB8VWosA0TthaPh YgzqgEDlIC94KCz4QKR 7cGpuHBwulO2eoMYeP1 l3RtCaQR23iN24MXaeH UPjFuB9RcTfnxrnaUEs L0faDyAsnGZaCkh+PHR hYmxlIHdpZHRoPScxMD FbIyWleMfmCB0jHg6jP GVyLWNvbGxhcHNlOiBj i0ihUQMjEFomFP3eaTa zI0RbtCA5ZRWmd7p5Ci 48dHI+FUWzTHA0uVvvI Qfea683MiStu3ruHVY8 dXKvYFzvFLJ7M70sj9C 5HCKqWIRlQWO8gTS3gO 0pfJmbthsbE3KygRWlX xM8MFU3uBZfqK4fvUmm yulleQ6tKxu+R68TXT8 ONITYOK4NIvb1F2XrUv wvdHI+BJ32HEOcFW85t EHeaJZat3pkbTk3OjHw YMLzHLX8qQieVCthz5A nVOSrR30jgXBgf2V5RR DwgBpfmLWsLwOsyVR5o C2uQEbpginpj9fndual Scwsu7vcxw08kO12L78 pJMkaJVShIQN8FQXmYM ZozTkcap1hbV7nWf6+I Klpw6usr6mptJf5OeMk UXTprsAumTfgNUH6g9Z uKa51Q8XrtPmeo2XuVy q2ni17aBQba7S6fSS7E OnuMNOtiY6hJDwfFwT5 YSQeEdFxuR15xTDsWDx mBl1gwOupsSwpZH9zDQ BnkzhvUKSqrB8vEEFhq AGdoAceJS0oQNBygnnr s526OzGqMOD3TCWsyQZ gZ7SutC0jElTtLZXwZP GfM8TrfJFjOJhwG665X GksNgK2KZBfguZfQ2Ag PZDzkGhoChM8e0H7Oo3 Ku7NtkoslETO7FCniVY G7ZeB9WvRzPmP2J8LqG ft6MVZdbIigKL0tU7Ax GHVnivnfqbaeeBG1JOY hUEPorH27iWQtLHgwGk 8io3U7k953ZOCeIMDok Z59Jt1tmCfaWHZiuNPQ mA1jnsogv4rkqujbPqO iBVMwBUp3LDv3CIHjmB vrCaKeTXP1LeC4YEJ6g ZZisG6ybKzwiwwrdU7w Oyc+X42qbA4kQJR2NGC 9jzvvEQVvzaWpXE55BB 19X2PrKssniDZkyOC+P CMmkmTlpTlcQF8tVuWb g4hsd9MfRIkaY4IyMIM eJXgiGep0EPXtUME2fR A7vE6xEKRcPOxak7U6v KY2K6OewrMwdt7op3ch KWJxDPafV14bvKVzk3Q 8SCQzzHQ9PINvwTaoWv BcrN29Ygp+PGNvbGdyb 6CmVoazn1abs9dwbAi7 IjMwJSIgdmFsaWduPSJ 0j0VyRx55E65oFKepNL RoPSIxNSUiIHZhbGlnb n3ckG5wJl0+PGNvbCB3 kQL8hV6dSRZjOsB4VYx iR488OkNhiGOzCssxu1 hut6kysJj8WrLmRJPez kHubAdjBIX7u4MnRa80 P07nWQicBBHjMHAiBTB aFPEptCtcre7kfN9dKf 8+YH2py3cnlz25jX53s HI+HNRoFQF9xYyqMTzs XXXgoS3tMBmyXvC4YDR vVzBykF16iNPmFCafGk 5ojBwrjWeaYQ5fIXCci afam437RgPkf5ruVIYs fXHaUMgaBDW3H52ow5W 9NHRcBDXvSWW6wZI1eR 1hbGlnbjogbGVmdDsgd qWrdRbfGCvoXLxqZ412 IHRvcDsnPlBhdGllbnQ bSiWuHIh9V1YiEgw9XD FhoEgfSY2wqESwENuiS l6seWxsoVfwHQ0dXDSs xjgem067MsSqz8vlVVK koXWuBAyrNQK2P01es4 X3HPNtPROvIJD6nQD7k P1jjExmtqwemSDhaQap ywBpjEyyDUgtBCefL38 6IHRvcDsnPkJpcnRoIE QkgMA7JN82UV86cDWvp 6B4eMN5S1DlSKUpxmxd xqilmAV6YHCtGBJmwY0 9Pp4bqBvcMj5wABTbDF F4NYXtdVHpZ2UofV6hB aIvDGXcACBwU1ActAYp MKgsL865KDdzEuV5HCD pwtHyV2YyJIHibQkwFg V8p1U3Gf2SE6A8FI71I E91sUElo6S9oBP8M6Ct KCTiypqherkgkLO2CKD qAFQiuV50Hl0hfAgvLz 8dJNAqDUI9VFAkcJZvE 8VcnG8eTiDrVTQbHYIb M4AkxNOjIPqyD293KYz cMgD5RRSkygYqU2YpQO LhvTvtFbF2u7G4Lo4UR Jt0OI93SO17kAAkw4S1 uOV4Q9HtFSCuvtqafcg utUZ4WKYbQAAnuV88Oq 5cwBjwQi1eJXDqVUU0A EPloWQmS7CugX9iQbBo ITNwCOXbI8CduOPcNDt yT879UDlfTbJ9NVSfsg VcQ9ZaZNVohYzaVzH7x 1L7Ct5HEDWoFQ58IGI3 oSH0JL98DL97V0YjMbg vdGFibGU+PHRhYmxlIH dpZHRoPScxMDAlJyBzd JyyAD2pZt5sQEFmBISe zEolaQViRjKyn1alSBZ lUCkmGX3yxArvY2RhxQ G9TKBcd6m1Vr86J04dW 3JvdXA+UBYphEV9vYR3 wW7kFnXnPgF5MWmzU83 1FvCtdSBkRyrqe1bld8 sptAu9ZnJ6LTEuvkKqa BrcQTM4p0BrMx79C48r IHdpZHRoPSIxNSUiIHZ zqUycre9bnA3jJo3+PG UimTA9yCF3sC8nFhCjY nW5MLahC985JgQtyXCd Batcq2zqy5limQi5GzY sWOHfetOwjKsfATE7v7 MiXb37K3FlrZtsc2NaU he3oz29vPJfo6M2pMC4 L0LmWMAzktoivUEtmXq nPN6pNVDlwgxiPZIyzY 0oSEXtI1v8IeZoLeV1H PbdK7AbnoZ1NFXbtXBy GKnyMSZ8J76lf6T5KQM lBAYzGGN9rAY7vH3hxP lnbjogbGVmdDsgdmVyd OwnZLcdGWhiP872IWDc dGypKTZlwE7uKOMpiGG azFjrZL2wIMRldylhQd tFTExFWSwgQlJFTkRBI Vy4Z1ZkRyx4GCKxjDja IL3eiCJzDFdkKc7fvFp lxSruQL1mNIMkqtwkTC NqfR5sLMYuuCUddXwwO P0qUPJukfcqv508HkJy OWB6LLUplOPuP7XgrT7 zDyQlBELsQLGqX3UxfK OvNOhhY392XHfzSrB3G ZOakvGyS8KeJBEtlMak PnF9m8Z8Ma7hHi3kZT6 zLKV7NF43OI59hGQea4 E4pIS4Q2ShTSJswzaah pldaMU8PAJmGTGrtS11 zKQsRSqcRa9ko0R9a02 5DRKjUPUryH75Wj9yhK auTAPaaFIGlU4rursfy 9mxozaiWkLaZHDkEUz9 LMu7CUKidVskOpOfBBP 0SpO4WEH4vPVybO1aqS gmgkqgdA9tPyd+NTcgW TBixxY7R8WdPfx0IUQm mZndRT5sdEGrVMrnUc0 mwJsylXboWK6sUSLyvr slXXVcgS9pJOYkeYElk GhrAB0nXOPtthxza103 NdWpOGU2RXNbfRZbU7C inP6iOfQzRJTsZUMaE7 HbcVIsKJknP840MYchI rZ6FZUslaGjK8BdQATg lXueKjM0q1I8Cz1JCO0 jiNQ1C3EwRpw6WCThtO pfZN2euDDmRRmyGm0gp TkwjJgoNO6lSHFxlquv GCZxuX3hHECwkCFakBu zPU6cVILeenqqh960Ks ShZNC5OPNflEUlH7Tgh W2bQpSaHBAiNRNuB1Xy wPXkAFxdX535DNukMvM 2DKLznhXeM1IyKOPlvE kjExI9e7Y5Eb5TfLZiN QGdPH18QS94LD25H0Mq PjwvdGFibGU+PHRhYmx lIHdpZHRoPScxMDAlJy TopZfyNA3wYm8aJWNxN ZPycQjgzMTdRzNcq4rm MVDrHTdmWP5zxFwrV1L hqNE6SVXer3p3Ev29I5 1lG3GfwXK+YQDkgNK3c BX7zM9cEkVsKmN7RJcy J389IkCjaBNoHgocd3t bm6ltgXl4QzCbOHUtfb SzrJavEAU2l3CzEq02B 29sIHdpZHRoPSIyMCUi DEApwQdvmt0baH6zAo5 +TBYmmKG1dQS9mD9yQg SxGhJ2AHpnZ777TrSaw NTuVhprO32xL4AlvUJ+ RCSbQao3PWGxpPhwVZ8 frIJqTUpaQk7hPPA9Ju XzDnUoZEykV6JlFCWiv vteicckyLI6XSPcOUHp wJ55Ci4dwVkzEx6rBRY dPED5WKGprBEnG4JvjJ 2mVoTkXEVeGFOeG0Snw TUcPZjbD383XQfgVcN9 QZPimnWqW8GaDXUlkPf qPxF8u0C1At8QrTowjQ WiIF4qNbCtRSt4K7YaD qu4PXLmjAstLA0dwPWr PQbeNi6jbPaetRcrAW8 hXZDhothpr996NaUqx3 neBIFxvCUmKNxxINA2J 53jn9M4FVCpYGJaOBD6 yKN9eR9wcKfjpycynPS mdDsgdmVydGljYWwtYW ibZ646OGNkqHkgPrPOB om7Y7NqOyg7PFLnjPvd QB3mhHGfAEqsXj8hjSq jdSuaAZ0kNPVxbyyfu6 99PzEsx9fiCYRhcMJcP ChsPRA4E63st2R0TSEm MCMuDGS0kZO6pU6tfXs nbjogbGVmdDsgdmVydG qrUXwmWHxfD842FGZzn BwoTn3ONlt5W9LvEbh2 GOThdFymUL8njPMqSKi fWp5ttWiyqYsjUC4aYO Kkpktoq395DdSwp3rnI LFheONbHQdpTWK3N18q j7R1CRHnDOHiJDR9eGZ 7uD9faGpepgmqdWQtcA sgdmVydGljYWwtYWxpZ 246IHRvcDsnPlBheWVy OjwvdGQ+VL82nu07I0A zNnngRip7LYAdAAI7qJ G9zT6pDWXlFEcly0O7f RB8T8AibdHulk5bj0lq YXBz (more content not included)... Normal [facility] CHEMISTRYOrdered By: SYSTEM SYSTEM on 09-24-2021 Albumin [...] rate/Area] mL/min/1.73 m2 Normal >=59mL/min/1. 73 m2 [facility] Chem S GFR/1.73 sq M.predicted among non-blacks MDRD (S/P/Bld) [Vol rate/Area] mL/min/1.73 m2 Normal >=59mL/min/1. 73 m2 [facility] Chem S Globulin (S) [Mass/Vol] 2.7 g/dL [...] 09-24-2021 Albumin [Mass/Vol] 4.3 g/dL Normal 3.3-5.0 [facility] Comment on above: Performed By: #### 2 096321, [id number], 8852628 #### [facility] [address] [place] [address] Albumin/Globulin (S) [Mass conc ratio] 1.6 Normal 1.1-2.2 [facility] Comment on above: Performed By: #### 2 767522, 13517451, 9753526 #### [facility] [address] [place] [address] ALP [Catalytic activity/Vol] 52 Int._Unit/L Normal 21-98 [facility] Comment on above: Performed By: #### 2 163540, [id number], 8598081 #### [facility] [address] [place] [address] ALT No additional P-5'-P [Catalytic activity/Vol] 25 Int._Unit/L Normal 6-46 [facility] Comment on above: Performed By: #### 2 705141, 70753176, 2511158 #### [facility] [address] [place] [address] Anion gap [Moles/Vol] 11 mmol/L Normal 6-16 [facility] Comment on above: Performed By: #### 2 039479, 70978154, 7634013 #### [facility] [address] [place] [address] AST [Catalytic activity/Vol] 22 Int._Unit/L Normal 5-43 [facility] Comment on above: Performed By: #### 2 784878, 31451424, 6692357 #### [facility] [address] [place] [address] Bilirubin [Mass/Vol] 1.3 mg/dL High 0.0-1.1 [facility] Comment on above: Performed By: #### 2 016983, 69003327, 1814920 #### [facility] [address] [place] [address] Calcium [Mass/Vol] 9.1 mg/dL Normal 8.9-11.1 [facility] Comment on above: Performed By: #### 2 051414, 94014132, 4565362 #### [facility] [address] [place] [address] Chloride [Moles/Vol] 102 mmol/L Normal 101-111 [facility] Comment on above: Performed By: #### 2 197356, 42285266, 4040323 #### [facility] [address] [place] [address] CO2 [Moles/Vol] 26 mmol/L Normal 21-31 [facility] Comment on above: Performed By: #### 2 722816, 70017943, 0298625 #### [facility] [address] [place] [address] Creatinine [Mass/Vol] 0.6 mg/dL Normal 0.5-1.3 [facility] Comment on above: Performed By: #### 2 369917, 34559564, 1306966 #### [facility] [address] [place] [address] Globulin (S) [Mass/Vol] 2.7 g/dL Normal 1.4-4.0 [facility] Comment on above: Performed By: #### 2 580518, 16209972, 0586448 #### [facility] [address] [place] [address] Glucose [Mass/Vol] 107 mg/dL Normal 55-199 [facility] Comment on above: Result Comment: If t his glucose result represents a fasting glucose, interpretation should refer to the following reference range: 55-99 mg/dL Performed By: #### 2 388701, 71587330, 2512116 #### [facility] [address] [place] [address] Potassium [Moles/Vol] 3.8 mmol/L Normal 3.5-5.3 [facility] Comment on above: Performed By: #### 2 736637, 91338657, 3259077 #### [facility] [address] [place] [address] Protein [Mass/Vol] 7.0 g/dL Normal 6.0-7.8 [facility] Comment on above: Performed By: #### 2 997195, 07556064, 8725618 #### [facility] [address] [place] [address] Sodium [Moles/Vol] 135 mmol/L Normal 135-145 [facility] Comment on above: Performed By: #### 2 032570, 40828883, 5738935 #### [facility] [address] [place] [address] Urea nitrogen [Mass/Vol] 15 mg/dL Normal 5-21 [facility] Comment on above: Performed By: #### 2 419136, 90043673, 0738975 #### [facility] [address] [place] [address] Urea nitrogen/Creatinine [Mass ratio] 25 No Units High 10-20 [facility] Comment on above: Performed By: #### 2 348211, 51547031, 6261816 #### [facility] [address] [place] [address] Consent for Treatmenton 08-31 Consent for Treatment [id number] D0#[id number]:127 Normal [facility] Lipid Panelon 09-24-2021 Cholesterol [Mass/Vol] 245 mg/dL High 120-200 [facility] Comment on above: Performed By: #### 2 604166, 65095079, 0847616 #### [facility] [address] [place] [address] Cholesterol in HDL [Mass/Vol] 50 mg/dL Invalid Interpretation Code [facility] Comment on above: Result Comment: HDL > or equal to 60 mg/dL: Low cardiovascular risk HDL < 40 mg/dL : High cardiovascular risk Performed By: #### 2 615053, 49076130, 5767952 #### [facility] [address] [place] [address] Cholesterol in LDL [Mass/Vol] 174 mg/dL High <=129 [facility] Comment on above: Performed By: #### 2 418995, 23620422, 8841497 #### [facility] [address] [place] [address] Cholesterol in VLDL [Mass/Vol] 18 mg/dL Normal 7-40 [facility] Comment on above: Performed By: #### 2 411471, 99374920, 2512419 #### [facility] [address] [place] [address] Triglyceride [Mass/Vol] 89 mg/dL Normal <=149 [facility] Comment on above: Performed By: #### 2 348598, 34249314, 4997447 #### [facility] [address] [place] [address] Physician Orderon 09-24-2021 Physician Order [id number] C#[id number]:127 Normal [facility] eGFRon 09-24-2021 GFR/1.73 sq M.predicted among blacks MDRD (S/P/Bld) [Vol rate/Area] mL/min/{1.73_m2} Normal >=59 [facility] Comment on above: Order Comment: Order added by Discern Expert. Result Comment: eGFR is race adjusted. AA=. Performed By: #### 2 139574, [id number], 5793668 #### [facility] [address] [place] [address] GFR/1.73 sq M.predicted among non-blacks MDRD (S/P/Bld) [Vol rate/Area] mL/min/{1.73_m2} Normal >=59 [facility] Comment on above: Order Comment: Order added by Discern Expert. Result Comment: Labor Relations Director alexy kidney disease could be indicated at eGFR's of less than 60 mL/min/1.73m2. Kidney failure is indicated at less than 15 mL/min/1.73m2. Performed By: #### 2 865578, 35297011, 1346693 #### [facility] [address] [place] [address] Coding Summary.on 11-28-2020 Coding Summary. [id number] MSh9rSv+PGhlYWQ+PE1 UXSMwQ65oxBMkkX9AP6 bVEC5TYILNUCHBYZ1NU F3rvOR5XUydA6FnxtAm OyhdoJImLN80DGu0ZGE 2wKveGJqhvK9grRXlZ2 j2PwQoYH83fO17HNhhI LZyKjH6IbPnixaocINt D9pjDrAfeCVoXwn+PHR hYmxlIHdpZHRoPScxMD GjGbUzpFmrBR2tYy9rI GVyLWNvbGxhcHNlOiBj u7pmKEYqKJplMK7ezMy xE8YfnZA8NCLod8o3Ra 48dHI+XFRbGSS2lMhrA Zuci942FmJbb8dvNOB7 iXJgIDrhFPW7F09fs9L 7YTAnPKEfWWN7mKG5vL 9otZjgpbjqJ5IehQCkJ pR2SUS4yILlkR0eeUum dyjxkD7tIgk+K38JBV3 IRBRFLC2ELei9M7QzVh wvdHI+WN60FWXuMJ44g TWhxFIjc9dmvYi6CzOo QJDtFSQ0kTapNAmsq7Q gXYMcL42kjHFzn8K0OX AjcIwryQFoKlFgeVT0b Y3wBUebldxkr1imyjtl Jzovh1sxvv69hO65F17 wJXzqNWQoLKP8AKTwDE VysFihsl1rqQ3mBp5+I Gkme9ifo7xiaHf1FhLw VDCfysXbqZyoLPC4v2Z ySs46I7QjgProu3XqXp s7oo72wPBfe6R9oCX3K AjsLGSdmN2aPEzaFuY6 PCEkLuWoiY26yMOdYCb cHh0jaThkgAthKD0cLU GjgmpnWJXqpP3iWFNta LIopPtuFN4fNCFskhlw c237OuZrRXL7QCBqjPM cU5SskD9aGcVxFCSjLV AaM6IzjXAaRBjyP735T QehGiU8JEMpkfVbX6Zr GUSywArcNoV6s9X3Xu0 Os2JalqxdKTR2QMiuCK X7DmQvMoRuWqL1P3OmD bq3AFMwoZsmLE0pV8Ey WMQiqankvhdsgDS4FUI wPSWumC90cHQcKJsqSv 9bu0F9u072SOWuTZUej J26Cn7thJtnVLQpjXDA iK2qvvfwr0cxerlpLzU gMQKkWZv6UIf2RNMnoN igSuWvJLM7SpB7PBA3c SCohH8gkUvomalwwE2g Oyc+Y36ymU8zOKW0GHN 7brufQGNgdqJzWU76QZ 84K7GwAdecgQQzwDE+P IPskzSimMaaMM6uPmYn i2ytr1ToSGgsE2ElOKE zTTdeYau0KXVqHQP1aV W9zR5wNOCcVWogg1U3h EZ3N6XqjyIhmn0cf7fe NXXkFYabS91aqXEiu4K 6NWNveRM0HLSusMaoNg IjyF17Hfy+PGNvbGdyb 9RgCijos7bxm6simLc2 IjMwJSIgdmFsaWduPSJ 6u0QeNh67T16jVRzoZY RoPSIxNSUiIHZhbGlnb q3wpT8iIs1+PGNvbCB3 mGQ2eC7nTRJjPpZ1JLm sW677IaXnsGXhHvpxq3 jis4jbfMq9GcWoUYGnv kTdzKjfEXP8h4GcKu27 C30wICtnJVVhOJJgSIL yPNZmzDqtrg9ycC5pKt 8+XJ3bi9dquw20gE88u HI+AFRlMWK4oAdgCWzn HSTtoD2uOBlmPwE2UKT gUmSrfH57tFVjOEytYs 6abTuyaItiCG8eJVQyf ffrq671AiIma3uiFHSn cCPrHZnyTQL6M77lo6X 2MGAsVPQyTOY2kPK1vS 1hbGlnbjogbGVmdDsgd iUxoHjzZNrqXSsbH376 IHRvcDsnPlBhdGllbnQ vSvEyRXm0P1AvYiq8GQ AguSchVZ2aaFPnIRzoL l3frVxhqWloEB8kACWw nwtcp542MsUej0efEOO koDTtXFjuIJK4U00ym5 Q8YVPlSXFkDAS7eUK6y C4pjZmndyksuKLvbCqw saWliKxnZNujDYfeK36 6IHRvcDsnPkJpcnRoIE LuyPF2YN79IB54qTFwp 5P5oMJ3J7OvQVOhnrvi wrwmpUL5VZXuHIItcR9 2Sa5kzUfwVp0qLTQbAV W4XQQkdSNeN8EimG4aV rMxSRDnBYNoU3SrqUIx YGxhP512DXagNiW9TYG ogiViE2MuVWSoeNuoIv Z6m6Q7Ei3SC5V9QO88T C14aPMyt1F0mMJ2T1By GOUbxkrpshtfuZS3YIO eTFAwsL69Wb9hbNpaSz 2pXLCaKUS9SAWazJPoO 0VskU9iKyHyLNXuORBb X7RgzWYoFKwxG725TNi sWyN1UCUnjcKcF5JkAE ZmwYmgNfH3l7U4Jb1KM Uh5SV51HQ11rGJzt9X9 mMJ2M1SkQGQhklzffch gyVT8BLAfAUNguO67Lr 8esYccEs8rDEFmGGE2C NKogQApZ2NksC1cOgSi VMAtMOXlO5LrjWFaWEl vK216ENshIwC6UMFqmo DmZ1HeIBBrdWurSfR5r 3Y4Me9IGAOsCF22VPV1 jXC7ZB88DU24I9FdTmx vdGFibGU+PHRhYmxlIH dpZHRoPScxMDAlJyBzd SeqZC0cLr9vSTYgODOl aHbpzLVjKzLvf8ccBXO oZUubUV6okIyiL4QpzP S5OWJux6o1So05A94iC 3JvdXA+HKRczMA8iBX6 hJ8dOkYhKcQ4WZoiB05 7GxCqnUZfEcpuw1wjd2 hewGg7NbN9VDNpnbGab TbvPWA5a9EkIc20K61j IHdpZHRoPSIxNSUiIHZ vcTjwia0veH6yLt8+PG PozBE9bRQ7rY3hGjVvP gP5HOwyI391GlWipWAo Rdlny7uih4ndvGy8KgF cQHItanIioCmeTCF9q9 QwFp37F7VbsRrdn9IhU qs0ja55bUCpu5P1oBK3 J7IaRGFhrgzmaPOjwCj jJN5tZHCqkgcpNVEshI 5pRXElT2l1AdXxCgP9U OylC9BrvvT4GXAmuKPt EBbvXQV4Q70xs9E9GQM iUMSaZHD8nOT5yC3qfZ lnbjogbGVmdDsgdmVyd RbkHKxoGYplU313GKAk vNozLOYipW6zWMUozXB foPdnBC6zUPHidwocVa tFTExFWSwgQlJFTkRBI Vz9G1QzMmc7CCSbgAwj NN5kyEAqYLovJa2ytBy yhSrxYD0pNAIulkivPK OxvE7mBRIraHWpmVacL Y5bIGFmbjcjw414ClZf JZK3HYNvwSElA1XryP6 aWhYuWZHsQNVqH3VumS ZvCQwaI058ARecQnY5U TVqxyFpX6EkWFMijRjy YfN5a7F4Vk9uFk2zCO8 oJAY9ZL35DX49sHJbk6 Q6fXU2Q5JeHDOqbydnc legsZZ4WHOlFWAsrV89 qTRpZWleCd7aq1M4s11 9DBRfFDWdrT63Gg1qqW kgRDKtyEKFqS2bufioh 6lzgaxfZzJvHHJwMEa8 JWa6FBZorClrVtQmESL 8FgB0MDW7pHUhtL8qsT qmcjywqS4rCos+NTYgW ZKcpfJ2X4JcUmr9AWNi eZbaYU6jdSVbSKuoRr1 rdByarYdhLJ2yRRQgzu tyOERusS4cDHZmnHLhl AojCT3xARXvxqarx636 QeKgFZN1TAWvfRGcL1M hcO9pNfNqLYZxQGHmO6 IwwBCvLNuyJ470DXzfZ uA7BFYusiZnA8CgGBKh qNhdIzS1z9C9Jd5BXC5 kkHG7C6KcFnl4CFMitR plGO6rlASzLXaxSr5te TylyRrmFD2vEWIzwrhv QPDpnE5lZQVukHNnhHa nMQ3eLACvgcpbo516Qn FmUSH2NJJpyKCcQ4Iqv J4pDaYpVLXtYMOtE6Ys iDPiLVcnO974OKsiQxJ 6DPUueqLaH6XaAMEbrG dgNqJ7r5L0Ql2CnSGsE OKwNC36YG48SU34T8Lu PjwvdGFibGU+PHRhYmx lIHdpZHRoPScxMDAlJy ZsjBtoED4tTa6dVVTqH WBjoOxsaULgBwMkm8og QUAzQBnqIN8tsYdfF7R omEX3RVVhy2v6Hw17K7 7nX4QtzLT+DXWdqLJ1e AS5dK8jOxHdNaJ8QKmt P618BmXdrGGnYozei2x jm8trcSl2WlIsNMCrhi XavDzyGDH8m5KaAh15I 29sIHdpZHRoPSIyMCUi ZDBfyNzpdx6szL9vXl9 +UDKqxFD5pHC4tL9mKq FlVuB0JNxjQ618VsCqe PTjEwsqN35kI4LlwYY+ DNXiQyg0YOYwzYspQT9 mhTToMLszRq5qPFS0Pg YyItKpTBenQ0YfMBQzq cxlrvxkzLA8WEPeJJWe uQ06Oa4cqJcxVx9pSYE iAWI9QQWaeUSlR3JerG 9zHhGaGDHdQGYfR5Uny BKaQPrxC337FWuoPdZ3 NXQfsrGlP1ZiMZLayKn hYlH5s1H8Qq7QdHxssV TbOJ6zQnCdDXk5E6HoF we7JYDonKxoBR2kwWGa GUpjLy6wxZwhvCaxTO5 aNVCyxuzuf305LgLxf4 jyOACklXQsFSwxGKJ9W 67nn7M6XPQhNVHpRSV2 nMV6hB3jgQomilyeoFK mdDsgdmVydGljYWwtYW btJ123QTQurVjjEkLBU an8M6DcOiy7DPRjaSkl NK6hmEKbOUodEv4pySn yxHoiYU9eNMVkzvbuh5 00HmHbz5gkWNJepZJdS CfoCLX1K41ep5W6JCBa BEAxPJN2fFP1eJ9wnJh nbjogbGVmdDsgdmVydG qjJMdfCBwoZ924SFKkb VrmUs5PKfr6C0ViRzz5 SUBvzAgjCB9iyMSePZd sYs5ypBhgeHcjYC5hOJ Fxomqkz790FkKim6nyA WPbwQEuSAesPYB2F17r m7Z4MJKuPSZlJWF0eAC 3xL2zhJmsrdsqfMCyiZ sgdmVydGljYWwtYWxpZ 246IHRvcDsnPlBheWVy OjwvdGQ+QF33gv56E3L sPnorRss6OYUrSZE1gM I7bT1hOCSjBAttn9S9k SO7B7McomTqlg2hd7ov YXBz (more content not included)... Normal [facility] Auto Diffon 11-19-2020 Basophils/100 WBC (Bld) 0.7 % Normal 0.0-2.0 [facility] Comment on above: Order Comment: Order Added by Discern Expert. Performed By: #### 2 [id number], [id number] #### [facility] [address] [place] [address] 97807 Basophils/Leukocytes Auto (Bld) [Pure # fraction] 0.0 E9/L Normal 0.0-0.2 [facility] Comment on above: Order Comment: Order Added by Discern Expert. Performed By: #### 2 [id number], [id number] #### [facility] [address] [place] [address] 93047 Eosinophils/100 WBC (Bld) 9.0 % High 0.0-8.0 [facility] Comment on above: Order Comment: Order Added by Discern Expert. Performed By: #### 2 [id number], [id number] #### [facility] [address] [place] [address] 73538 Eosinophils/Leukocyt es Auto (Bld) [Pure # fraction] 0.5 E9/L Normal 0.0-0.5 [facility] Comment on above: Order Comment: Order Added by Discern Expert. Performed By: #### 2 [id number], [id number] #### [facility] [address] [place] [address] 22956 Lymphocytes/100 WBC (Bld) 30.0 % Normal 14.0-50.0 [facility] Comment on above: Order Comment: Order Added by Discern Expert. Performed By: #### 2 [id number], [id number] #### [facility] [address] [place] [address] 33285 Lymphocytes/Leukocyt es Auto (Bld) [Pure # fraction] 1.7 E9/L Normal 1.0-4.0 [facility] Comment on above: Order Comment: Order Added by Discern Expert. Performed By: #### 2 [id number], [id number] #### [facility] [address] [place] [address] Monocytes/100 WBC (Bld) 7.6 % Normal 4.0-14.0 [facility] Comment on above: Order Comment: Order Added by Discern Expert. Performed By: #### 2 [id number], [id number] #### [facility] [address] [place] [address] Monocytes/Leukocytes Auto (Bld) [Pure # fraction] 0.4 E9/L Normal 0.2-1.0 [facility] Comment on above: Order Comment: Order Added by Discern Expert. Performed By: #### 2 [id number], [id number] #### [facility] [address] [place] [address] 39693 Neutrophils/100 WBC (Bld) 52.7 % Normal 36.0-75.0 [facility] Comment on above: Order Comment: Order Added by Discern Expert. Performed By: #### 2 [id number], [id number] #### [facility] [address] [place] [address] 49240 Neutrophils/Leukocyt es Auto (Bld) [Pure # fraction] 2.9 E9/L Normal 2.0-7.5 [facility] Comment on above: Order Comment: Order Added by Discern Expert. Performed By: #### 2 [id number], [id number] #### [facility] [address] [place] [address] 73104 CBC w/ Auto Diffon Erythrocyte distribution width (RBC) [Ratio] 12.8 % Normal 10.9-14.2 [facility] Comment on above: Performed By: #### 2 [id number], [id number] #### [facility] [address] [place] [address] 75888 Hematocrit (Bld) [Volume fraction] 42.2 % Normal 34.0-46.0 [facility] Comment on above: Performed By: #### 2 [id number], [id number] #### [facility] [address] [place] [address] 14187 Hemoglobin (Bld) [Mass/Vol] 14.4 g/dL Normal 12.0-16.0 [facility] Comment on above: Performed By: #### 2 [id number], [id number] #### [facility] [address] [place] [address] 20965 MCH (RBC) [Entitic mass] 30.5 pg Normal 27.0-34.0 [facility] Comment on above: Performed By: #### 2 [id number], [id number] #### [facility] [address] [place] [address] 44639 MCHC (RBC) [Mass/Vol] 34.2 g/dL Normal 31.4-36.0 [facility] Comment on above: Performed By: #### 2 032959, [id number] #### [facility] [address] [place] [address] 73465 MCV (RBC) [Entitic vol] 89.3 fL Normal 80.0-100.0 [facility] Comment on above: Performed By: #### 2 [id number], [id number] #### [facility] [address] [place] [address] 76757 Platelet mean volume (Bld) [Entitic vol] 8.7 fL Normal 6.4-10.8 [facility] Comment on above: Performed By: #### 2 874015, [id number] #### [facility] [address] [place] [address] 33739 Platelets (Bld) [#/Vol] 178.0 E9/L Normal 150.0-500.0 [facility] Comment on above: Performed By: #### 2 281192, [id number] #### [facility] [address] [place] [address] 13701 RBC (Bld) [#/Vol] 4.7 E12/L Normal 4.3-5.9 [facility] Comment on above: Performed By: #### 2 [id number], [id number] #### [facility] [address] [place] [address] 83531 WBC corrected for nucl RBC Auto (Bld) [#/Vol] 5.5 E9/L Normal 4.0-11.0 [facility] Comment on above: Performed By: #### 2 [id number], [id number] #### [facility] [address] [place] [address] Consent for Treatmenton 10-31 Consent for Treatment [id number] 3E#1.00CD:127 Normal [facility] Physician Orderon 11-19-2020 Physician Order [id number] 30#1.00CD:127 Normal [facility] Vital Signs Date Time Vital Sign Value Performing Clinician Mallorie koo 07-19-2024 15:02-0500 Body mass index (BMI) [Ratio] 28.57 kg/m2 Mirna Nataprawira DO Work Phone: [facility] 07-19-2024 15:02-0500 Body weight 80.29 kg Mirna Nataprawira DO Work Phone: [facility] 07-19-2024 15:02-0500 Diastolic blood pressure 78 mm[Hg] Mirna Nataprawira DO Work Phone: [facility] 07-19-2024 15:02-0500 Systolic blood pressure 126 mm[Hg] Mirna Nataprawira DO Work Phone: [facility] 05-06-2024 08:22-0500 Body height 167.6 cm Cleopatra SADLER Work Phone: [facility] 05-06-2024 08:22-0500 Body mass index (BMI) [Ratio] 28.5 kg/m2 Cleopatra SADLER Work Phone: [facility] 05-06-2024 08:22-0500 Body temperature 98.4 [degF] Cleopatra SADLER Work Phone: [facility] 05-06-2024 08:22-0500 Body weight 80.11 kg Cleopatra SADLER Work Phone: [facility] 05-06-2024 08:22-0500 Diastolic blood pressure 82 mm[Hg] Cleopatra SADLER Work Phone: [facility] 05-06-2024 08:22-0500 Heart rate 85 /min Cleopatra SADLER Work Phone: [facility] 05-06-2024 08:22-0500 SaO2% (BldA) [Mass fraction] 98 % Cleopatra Bowie PA Work Phone: [facility] 05-06-2024 08:22-0500 Systolic blood pressure 124 mm[Hg] Cleopatra Bowie PA Work Phone: [facility] Encounters Encounter Date Encounter Type Care Provider Facility Start: 02-23-2025 ambulatory [place] [address] Facility:[facility] Start: 08-11-2024 End: 08-11-2024 Refill Tyree [...] Start: 06-08-2024 End: 06-08-2024 ambulatory Cheko SADLER Facility:[facility] Start: 05-17-2024 End: 05-17-2024 Telephone encounter Cleopatra J Yessi PA Work Phone: [facility] Start: 05-06-2024 ambulatory Gabbie Gotti y:[facility] Start: 05-06-2024 End: 05-06-2024 ambulatory CLEOPATRA BOWIE Not Available Start: 05-06-2024 End: 05-06-2024 Patient encounter procedure Cleopatra SADLER Work Phone: [facility] Start: 05-06-2024 End: 05-06-2024 Periodic preventive [...] tympanic membrane Start: 01-20-2023 End: 01-20-2023 ambulatory [facility] Work Phone: Start: 01-20-2023 End: 01-20-2023 Patient encounter procedure [facility] Work Phone: Start: 09-24-2021 End: 09-24-2021 Patient encounter procedure Emma Buchanan [facility] Procedures Date Procedure Procedure Detail Performing Clinician Start: 05-06-2024 Microscopic observat ion [Identifier] in Cervix by Cyto stain Cleopatra SADLER Work Phone: Start: 01-20-2023 Screening mammography Start: 06-21-2021 Mammography Cleopatra SADLER Work Phone: Polyp of vocal cord (disorder) Emma Buchanan Plan of Treatment Date Care Activity Detail Author Start: 01-09-2028 Screening for malign ant neoplasm of cervix [facility] Start: 05-06-2027 Screening for malign ant neoplasm of cervix Pap Smear [facility] Start: 05-17-2025 End: 05-17-2025 Patient encounter procedure 05/17/2025 11:15 AM EST Office Visit [facility] [address] [address] Mirna Pisano, [address] [address] [facility] Start: 11-19-2024 Screening for malign ant neoplasm of colon [facility] Start: 07-19-2024 End: 07-19-2024 Patient encounter procedure 07/19/2024 3:00 PM EST Office Visit [facility] [address] [address] Mirna Pisano, [address] [address] Arrived [facility] Comment on above: Arrived Start: 06-14-2024 End: 06-14-2024 Patient encounter procedure 06/14/2024 2:15 PM EST Office Visit [facility] [address] [address] Mirna Pisano DO [address] [address] [facility] Start: 05-06-2024 End: 05-06-2025 CBC W Auto Differential panel - Blood CBC and differential Lab Routine High-renin essential hypertension (CMS/HCC) Mixed hyperlipidemia (CMS/HCC) Expected: 05/06/2024 (Approximate), Expires: 05/06/2025 [facility] Comment on above: Expected: 05/06/2024 (Approximate), Expires: 05/06/2025 Start: 05-06-2024 End: 05-06-2025 Comprehensive metabolic 2000 panel - Serum or Plasma Comprehensive metabolic panel Lab Routine High-renin essential hypertension (CMS/HCC) Mixed hyperlipidemia (CMS/HCC) Expected: 05/06/2024 (Approximate), Expires: 05/06/2025 [facility] Comment on above: Expected: 05/06/2024 (Approximate), Expires: 05/06/2025 Start: 05-06-2024 End: 05-06-2025 Lipid 1996 panel - Serum or Plasma Lipid panel Lab Routine Mixed hyperlipidemia (CMS/HCC) Expected: 05/06/2024 (Approximate), Expires: 05/06/2025 [facility] Comment on above: Expected: 05/06/2024 (Approximate), Expires: 05/06/2025 Start: 05-06-2024 End: 07-07-2025 MG Breast - bilateral Screening Bilateral screening mammogram Imaging Routine High-renin essential hypertension (CMS/HCC) Expected: 05/06/2024 (Approximate), Expires: 07/07/2025 [facility] Comment on above: Expected: 05/06/2024 (Approximate), Expires: 07/07/2025 Start: 05-06-2024 End: 05-06-2025 THINPREP TIS PAP AND HPV MRNA E6/E7 WITH REFLEX TO HPV 16,18/45 THINPREP TIS PAP AND HPV MRNA E6/E7 WITH REFLEX TO HPV 16,18/45 Pathology and Cytology Routine Screening for cervical cancer Well woman exam with routine gynecological exam Expected: 05/06/2024 (Approximate), Expires: 05/06/2025 [facility] Work Phone: Comment on above: Expected: 05/06/2024 (Approximate), Expires: 05/06/2025 Start: 06-21-2022 Screening for malign ant neoplasm of breast Mammogram [facility] Start: 12-03-1984 Screening for malign ant neoplasm of cervix Pap Smear [facility] Start: 1965 Screening for malign ant neoplasm of colon [facility] Immunizations Immunization Date Immunization Notes Care Provider Fa constance 05-13-2021 Covid (Moderna) [facility] 07-27-2020 Covid (Moderna) [facility] 06-29-2020 Covid (Moderna) [facility] 05-13-2018 influenza, seasonal, injectable [facility] 06-23-2001 hepatitis A and hepa titis B vaccine [facility] Payers Date Payer Category Payer Unknown [id number] 2024 Self-pay [id number] 2022 Private Health Insurance [facility] [id number] 2022 Unknown [id number] 1965 Unknown [id number] 1965 Unknown [id number] Unknown ANTHEM [id number] Unknown [id number] Unknown H EMP HLTH D O NOT USE [id number] Unknown [id number] Unknown [id number] Unknown [id number] Social History Date Type Detail Facility Start: 05-28-2019 End: 01-20-2023 Tobacco smoking status Ex-smoker (finding) [facility] Start: 01-07-2023 End: 07-19-2024 Sex Assigned At Female [facility] Start: 1965 Sex Assigned At Female [facility] History of tobacco use Current smoker [...] Diagnosis Date History of being hospitalized 05/31/2019 [facility] ER- Influenza A/pneumonia Past Surgical History: Procedure [...] 2 Para 1 Para Allergies Allergen Reactions [place] Oil Anaphylaxis Doxycycline Hives and Photosensitivity Erythromycin [...] DNA test positive documented in this encounter [facility] 06-13-2024 Telephone encounter Note completed [facility] 06-13-2024 Miscellaneous Notes completed documented in this encounter [facility] 05-17-2024 Telephone encounter Note Discussed pap test with patient, pap was normal however HPV was positive, patient had history of abnormal pap and discussed referral to motorcycle subassembly repairer for further eval, based on age and criteria, patient agreed will put in referral Referral to motorcycle subassembly repairer [place] [facility] 05-17-2024 Miscellaneous Notes Discussed pap test with patient, pap was normal however HPV was positive, patient had history of abnormal pap and discussed referral to motorcycle subassembly repairer for further eval, based on age and criteria, patient agreed will put in referral Referral to motorcycle subassembly repairer [place] documented in this encounter [facility] 05-06-2024 History of Presen t illness Narrative [...] mg, Oral, Daily ALLERGIES: Allergies Allergen Reactions [place] Oil Anaphylaxis Doxycycline Hives and Photosensitivity Erythromycin [...] antibiotic prescription will be sent to [facility] in [place] to manage the infection. She is advised [...] be printed for her to complete at [facility]. Assessment/Plan Problem List Items Addressed This [...] Cancer Screening 11/19/2024 documented in this encounter [facility] Evaluation + Plan note No data available for this section [facility] Evaluation note No assessment inform ation available [facility] Work Phone: Evaluation note Diagnosis High-renin essential hypertension (CMS/HCC)- Primary Unspecified essential hypertension Screening for cervical cancer Screening for malignant neoplasm of the cervix Well woman exam with routine gynecological exam Routine gynecological examination Mixed hyperlipidemia (CMS/HCC) Mixed hyperlipidemia Breast cancer screening by mammogram Non-recurrent acute suppurative otitis media of right ear without spontaneous rupture of tympanic membrane documented in this encounter [facility]* Diagnosis 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- Primary documented in this encounter [facility]* Diagnosis Mixed hyperlipidemia (CMS/HCC) Mixed hyperlipidemia documented in this encounter [facility]* Diagnosis Encounter to discuss test results- Primary Other specified counseling 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 documented in this encounter [facility]* Diagnosis Hypokalemia- Primary Hypopotassemia documented in this encounter [facility] Discharge instructions No data available for this section [facility] Summary Purpose Family History No Family [...] section and content) DATE CREATED AUTHOR 10/04/2021 [facility] DATE CREATED AUTHOR AUTHOR'S ORGANIZ ATION 05/14/2024 [facility] DATE CREATED AUTHOR AUTHOR'S ORGANIZ ATION 07/21/2024 [facility] EPIC DATE CREATED AUTHOR AUTHOR'S ORGANIZ ATION 02/18/2025 [facility] Care Teams (unrecognized sec tion and content) Team Status: Active Member Role Status Dates JAMIE BUCHANAN Family Provider Active EMMA BUCHANAN Primary Care Provider Active Team Status: Inactive Member Role Status Dates DEWAYNE VALENTIN Primary Care Provide r, Attending Provider, Referring Provider Active Store Keeper Relationship Specialty Start Date End Date Emma Buchanan, DO PCP - General Family Medicine 10/07/22 Store Keeper Relationship Specialty Start Date End Date Emma Buchanan Germain, DO PCP - General Family Medicine 10/07/22 Store Keeper Relationship Specialty Start Date End Date Emma Buchanan Germain, DO PCP - General [facility] 10/07/22 Store Keeper Relationship Specialty Start Date End Date Tyree Sheppard MD [address] [place] [address] PCP - [facility] 07/19/24 Store Keeper Relationship Specialty Start Date End Date Tyree Sheppard MD [address] [place] [address] PCP - [facility] 07/19/24 Goals (unrecognized section and content) Goals [...] BE BASED ON THE PRIMARY CLINICAL RECORDS. [employer] provides no warranty or guarantee of the accuracy or completeness of information in this document.
--- OUTSIDE RECORDS SUMMARY | 2025-02-24 07:28 | XMS RPT_ITS | CCD ---
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 APPRENTICE [facility] Care Team Providers Care Student Education Specialist Name Role Phone Emma Buchanan Primary Care [...] (1 source) Clindamycin; Translations: [clindamycin] Drug Allergy [facility] (9 sources) Doxycycline; Translations: [doxycycline] Drug Allergy Allergy - specialty (qualifier value), Hives, Photosensitivity [facility] (9 sources) Erythromycin; Translations: [erythromycin] Drug Allergy Hives [facility] (9 sources) Sulfamethoxazole / Trimethoprim; Translations: [sulfamethoxazole-t rimethoprim] Drug Allergy Hives, Photosensitivity, Swelling [facility] (1 source) Jackson Propensity to adverse reactions to substance [facility] (8 sources) Nitrofurantoin Drug Allergy Hives [facility] (8 sources) orange allergenic extract Drug Allergy 972 Anaphylaxis [facility] (1 source) Doxycycline Drug Allergy [facility] (1 source) Erythromycin Drug Allergy [facility] (1 source) Cecil juice Drug allergy (disorder) [facility] (1 source) Sulfamethoxazole Drug Allergy [facility] (1 source) Trimethoprim Drug Allergy [facility] Medications Current Medications Medication Drug Class(es) Dates Sig (Normalized) Sig (Original) Albuterol (1 source) beta2-Adrenergic Agonist Start: 05-31-2019 take 2.5 mg by inhalation every six hours for wheezing albuterol 0.083% Inh Jolanta 3 mL 2.5 mg, 3 mL, Inhalation, q6hr for wheezing, 25 EA, Refill(s) 0, [facility] Start Date: 05/31/19 Status: Ordered albuterol [...] Reporton 0 06-08-2024 Urgent Care Visit Report [facility] [address], [address] [place] [address] OFFICE VISIT Date of Service: 06/08/24 MR#: [id number] Acct: [id number] Name: SHEY BORRERO Rep #: [id number] : 1965 Provider: DOROTEO Tay Age/Sex: 58/F Location: [facility] Status: Signed Intake Vital Signs 06/08/24 17:37 BP 144/86 H Blood Pressure Location Lt brachial Position Sitting Respiration 17 Pulse 110 H Pulse Source NIBP Temp 97.9 F Temp Source Oral Pulse Oximetry (%) 98 Oxygen Delivery Method room air Intake Visit Reasons: COUGH, CONGESTION Chief Complaint: cough, congestion Software Configuration Specialist Required: No Is patient in pain?: No [...] improve, sooner (more content not included)... Normal [facility] HPV GENOTYPES 16,18/45on HPV 16 RNA Not detected Normal NOT DETECTED [facility] Comment on above: Performed By: #### 9 182, 83742 #### [facility] [address], [address] [place] [address] Clinical Services Director: Dallas Sanchez MD HPV 18/45 RNA Not detected Normal NOT DETECTED [facility] Comment on above: Result Comment: Meth odology: Wellness Trainer Mediated Amplification Cervical sources are required for HPV testing. If a vaginal source from a patient who has had a total hysterectomy with removal of cervix was submitted, please contact the testing laboratory for alternative testing options. Performed By: #### 9 182, 04479 #### [facility] [address], [address] [place] [address] Clinical Services Director: Dallas Sanchez MD THINPREP TIS PAP AND HPV mRN A E6/E7 WITH REFLEX TO HPV 16,18/45on 05-11-2024 CLINICAL INFORMATION: Normal [facility] Comment on above: Order Comment: FASTI NG:UNKNOWN FASTING: UNKNOWN Result Comment: BABS LEBLANC Performed By: #### 9 182, [id number] #### [facility] [address], [address] [place] [address] Clinical Services Director: Dallas Sanchze MD COMMENT Normal [facility] Comment on [...] clinical information. Performed By: #### 9 182, 51191 #### [facility] [place] [address] Clinical Services Director: Dallas Sanchez MD COMMENT: Normal [facility] Comment on above: Order Comment: FASTI NG:UNKNOWN FASTING: UNKNOWN Result Comment: This Pap test has been evaluated with computer assisted technology. Performed By: #### 9 182, 74599 #### [facility] [place] [address] Clinical Services Director: Dallas Sanchez MD MUSIC EDUCATION ADJUNCT PROFESSOR: Normal [facility] Comment on above: Order Comment: FASTI NG:UNKNOWN FASTING: UNKNOWN Result Comment: DAA, CT(ASCP) CT Screening Location: [place] [address] Performed By: #### 9 182, 62831 #### [facility] [place] [address] Clinical Services Director: Dallas Sanchez MD HPV mRNA E6/E7 Detected Abnormal Not Detected [facility] Comment on above: Order Comment: FASTI NG:UNKNOWN FASTING: UNKNOWN Result Comment: Meth odology: Wellness Trainer-Mediated Amplification This assay detects E6/E7 viral messenger RNA (mRNA) from 14 high-risk HPV types (16,18,31,33,35,39,45,51,52,56,58,59,66,68). Cervical sources are required for HPV testing. If a vaginal source from a patient who has had a total hysterectomy with removal of cervix was submitted, please contact the testing laboratory for alternative testing options. For additional information, please refer to http://education.Zoomdata/faq/ZQU086h5 (This link if provided for information/ educational purposes only.) Performed By: #### 9 182, 37577 #### [facility] [place] [address] Clinical Services Director: Dallas Sanchez MD INFECTION: Normal [facility] Comment on above: Order Comment: FASTI NG:UNKNOWN FASTING: UNKNOWN Result Comment: Shif t in vaginal lamine suggestive of bacterial vaginosis. Performed By: #### 9 182, 61231 #### [facility] [place] [address] Clinical Services Director: Dallas Sanchez MD INTERPRETATION/RESUL T: Normal [facility] Comment on above: Order Comment: FASTI NG:UNKNOWN FASTING: UNKNOWN Result Comment: Cyto logy Results: Negative for intraepithelial lesion or malignancy. Performed By: #### 9 1825, 78496 #### [facility] [address], [address] [place] [address] Clinical Services Director: Dallas Sanchez MD LMP: Normal [facility] Comment on above: Order Comment: FASTI NG:UNKNOWN FASTING: UNKNOWN Result Comment: N/G Performed By: #### 9 1825, 12790 #### [facility] [address], [address] [place] [address] Clinical Services Director: Dallas Sanchez MD PREV. BX: Normal [facility] Comment on above: Order Comment: FASTI NG:UNKNOWN FASTING: UNKNOWN Result Comment: N/G Performed By: #### 9 1825, 01054 #### [facility] of [address], [address] [place] [address] Clinical Services Director: Dallas Sanchez MD PREV. PAP: Normal [facility] Comment on above: Order Comment: FASTI NG:UNKNOWN FASTING: UNKNOWN Result Comment: N/G Performed By: #### 9 1825, 08957 #### [facility] [address], [address] [place] [address] Clinical Services Director: Dallas Sanchez MD REVIEW MUSIC EDUCATION ADJUNCT PROFESSOR: Normal [facility] Comment on above: Order Comment: FASTI NG:UNKNOWN FASTING: UNKNOWN Result Comment: LLT, CT(ASCP) CT screening location: [place] [address]. Performed By: #### 9 1825, 69557 #### [facility] [address], [address] [place] [address] Clinical Services Director: Dallas Sanchez MD SOURCE: Normal [facility] Comment on above: Order Comment: FASTI NG:UNKNOWN FASTING: UNKNOWN Result Comment: Vagi na, Cervix Performed By: #### 9 1825, 65106 #### [facility] [address], [address] [place] [address] Clinical Services Director: Dallas Sanchez MD STATEMENT OF ADEQUACY: Normal [facility] Comment on above: Order Comment: FASTI NG:UNKNOWN FASTING: UNKNOWN Result Comment: Sati sfactory for evaluation. Endocervical/transformation zone component present. Performed By: #### 9 1826, 80867 #### [facility] [address], [address] [place] [address] Clinical Services Director: Dallas Sanchez MD Coding Summary.on 10-03-2021 Coding Summary. [id number] IXp0zPx+PGhlYWQ+PE1 FKRSaV62vwJUfsY8OX4 gEHL2EDUOMZGXIMU0WW O6spID3NKtmT7WzyhHs GqynoXSoFJ93FBv6CPE 0yXcgCPkunF2nuCZlA5 x9GsEuFY99dI54FKekK DFtGpA0BsNixjnryXXm W7qtGjSuvZXvSop+PHR hYmxlIHdpZHRoPScxMD OnKcYqlWerAA8iOp8eC GVyLWNvbGxhcHNlOiBj t2bhSGTgKXzmAJ4coNc gV3XyvZG6ALErw2z5Hg 48dHI+OLYhXFL9iCqgO Jwko187KvQaz2jaIQJ0 oUOgTWygBPB1R23jg5A 1OZAyAXKaDHN4rKP9xF 5giUcjwwrpB4VbhZXhF oS8NSR5wGGamX7pdEot qhillL5fNrm+T42ITQ2 AOIZBTK9FAum3B7JbLd wvdHI+DV25SVHgKK29i UBxdGTmh2gyoOk8PoTk CMSyXKD0xNbmJScqp8B kESWgO70ylXXhl1S0KA CxkJfdqWBuNyWsxDS8j Y3wGOzmorduo8nwuwwr Mcttd7huut42hH11J75 bIWidEGSxDHH8AHIpVB WlaFyyww5bmB7kUm6+I Oiwn6hri6jipAp6QkWi KHUsnpNkfVurVMB1a4X sXx92O5QmeTrsa8LgFg j2bw75rYOmc5R6gRM1V RbiXEJcvY3zHCndFxD7 FAFfQeAqhR08vWSjXSf pNc5jtSiegTvrQG8xUC ZfrsesNHOqzV0bGFCtm VYelGfsWJ9tCESxeihl p400StFzPVK8YRNsoWU wZ7XikA2aDnCdOQKtEW KkP3TreIRyDUljH624R ChnZeF8CJVomfItQ7Av XJBubDuwFsW6c7G6Ql9 Ie7PhvvtmUPY5YQyjHW J3GqL5TeYtDhX0D7VqD tf5XQBhuKtfLI0rH0Or CRQbtvxxdxcuqKD8OJZ iWAVxyV46yTHtYIupGv 5dd2J9a577OEPeLGBtq V04Zj1wrKrxUGYohBDU mY9myqggu1fbftjqSaV uPKVqXYz2TMq4LMWcdP chAmZzBJN8WeS3MUH1s HAseL9gcKkgczddtU4b Oyc+F59ulR8mUGU4NFV 5jkpbOEZmnnElCP01KW 11S6NgDsnmwBOqdDI+P VGwxuWudWcrAS2bJhSv u2bgx2TyOSgiN2UvAHV nJOilOag8ZMXrBNF3oS D5uS5eHVIfTJlor2F8n NY0Y3JrueChut3dz9to IWLuTIpuB05jtAMew5V 3MIQbjQB0AEBhxHynEf YmnD51Yny+PGNvbGdyb 0ImWaqap6svb7xhmNz5 IjMwJSIgdmFsaWduPSJ 6h3LbPk41K43wMDhgKF RoPSIxNSUiIHZhbGlnb s0ojO0nHc8+PGNvbCB3 bGO2cV7kPWGjZtI8QVi lF236VcGfiPRuLwxev9 gxs2mxkFl3XwBlUBXjg sBxtPapIMM1v1TuEc43 U43wXPenNIDxIKUgZSI vVRUmgSuzir4rtD7bEl 8+SN2qe2wwcg46dL98r HI+DEXwUCW6iYdtBEms YCUkeH2gPDcfJgO2WXS bGvSxeE07bYCgDCusKz 5abNbtoPyyES0yWBAfk bddv634BgZtn6buRNDu hDDsPWqzLFW2Y29ed2S 5GDAzLDHuJKP2fOZ1lR 1hbGlnbjogbGVmdDsgd nBjcCqyFSwkAQuhB832 IHRvcDsnPlBhdGllbnQ eCvNnCHf2C8MyLhy0JS VpjUmmRC3vtUKbDEgcJ e3ujYmxiBgtYW3gBFOw oasfo909QuFmp0ayFNX lpCCmARfqWVZ9G06hd2 B8IEEkADWhQTC5sTP3v M1uqWnpiwixjMEmtSrx wvDunUhnZFseIHanH64 6IHRvcDsnPkJpcnRoIE EiiUT5QY33MT76cYGnv 3E6eEU1W3SqBGYfzlpj hgugfAA7QSChKSDpwN1 5Aq8bbZhmCa5xDENnGI V5MRJoaNZsI0KgfQ1wS bMhJMIzPOBoG6ZzuUHv HOqcN732WNuwDtH9PCZ gtjXxM2TrWBOnsUjgVg F4d8O3Xf1RS6H0NB89X K71hVUgo1I1kMT2Q9Jr WWIqlwuhxnvdgIA1QVS zUBOnsM72Ju1mgNhbXl 8bBNGhVOB5XJHmmQUmD 9ClkC3iIgLeUNTbXKBv Z9UjbCAhKInbF602HYk wLwA5MNMfhaJqB9XqFS PxdMmbReP2g7L7Rz6MO Dc3LF77OF07sZIvl0E0 tTO2L2YwUPVauekagln eiID1GCGrFOQidN72Oy 9vdHdyUg0oRBYqZMG2J DAdvNJpN7IutZ2mGsYo RTXrVPFtG5CmzFExJFb fF857HJgjPzM2RSOgxy XlL9MgTABzcPxnHpF7d 4V8Ug7BIOUhWC22DTR6 lJT2GF84YE98Y9EfSfn vdGFibGU+PHRhYmxlIH dpZHRoPScxMDAlJyBzd HdkCH2cHj3hQNGxSSWp aSfdvZYzUqHcr2xsKTX oRFbuAC2vvJagE2ZbkZ N8VPWoq8h6St10X16oJ 3JvdXA+RSUrpCX1kWO3 zY0rKfDmCsK2HLaeS72 7UmPfjSUiCmswo1bmu3 nhxKz8XpA2CZWnylZkc CxpSBG7v7PmGv80P78p IHdpZHRoPSIxNSUiIHZ qpDmzxm9tsV5tPb2+PG BmkOO7wUG4dO8iQzYwT qL0ENwwO902XlVkuAYy Hlebq4sns9xmmPd5LoI eHSCdzkNmjWvfVNN4h7 YdVt63E8XxbSqpi4JvY vw3sf26hUAct0I2qEV2 W9CaPMBwmjywpYApgEk iLY9rIDGdwsizYYCurA 2rPHElY7p9RiBrUfZ6O HabJ9HfwmX7NJDtwHCz PPfoZHO0W45kb3W1ULG jXARkJAG5qJQ3pW8dwX lnbjogbGVmdDsgdmVyd CorNKeoPIikL950GBAy iKcxBTXrkG4qSUIpmJK pfBlmFS3gRUQwkfklZx tFTExFWSwgQlJFTkRBI Oe2K1EvKoy7JWNjbNhs IT9fhUIwDOzwZv3ikTj dvFqlNU4wDSMduecmKD ItnM1wWDJpkYSylArsO E6xMYPczcjfb777PmXr KWO6WEFcbGJvK3UljB0 tFjJrVFVpFCUbR6IgvD TeZQvyI651QYrfXaK8Y ZHwamIaW4EvWETlqBlf NeB4c3F5My5pRg4lMC0 tGNN6OT10SK56tCElm6 N2bEK6N0BsSWKhkkxjv elkjRH2DCRpEQOilO39 iVZlQYdzNv2sz0M7z91 7KAIfVEZwhP37Ik7jqR szETPavRMAnX2geketf 1nmrpqfUoYhYTElPCa2 OCs9ZJNdlBvfZwFwDWA 3PpL8NFW7bNUsnM3syW riunkwyN7aWaz+NTcgW SExjbW7R9GzIgz2LUGr iHvdUD5swNToDOjxYi1 coAvojTryXN3bGFAbjc cnODFrcV9yVKOsuJQoi DckVS3kJTJxtwgvx977 TyHbUGQ5KOZhqDGpH2L vcT9pRpYwBEIwZARyA1 CysSMpRIrhL337YBxqH oK1HIEcwgQnZ2EbXQDs uUscZnA6u8J3Io1HXG2 cyZB1J3XgMtk5TYFzzG yeYL9cxUPqYQlxUq3fj SelcFffZU8pEQPwrtgy UCKzzD3oQNCkcTBkqQy hIG4xHLOsdyhos381Tz DeLIJ1YZUhhBSjV6Qtz Q7lKpSdKJOcCHJzP1My gORvWZfqU399HQrmRnX 6EKQipqFiP1GfALBxlG tkOvA2p4H5Yl9CbHGtI ZFfYQ85PM45GQ28S8Wx PjwvdGFibGU+PHRhYmx lIHdpZHRoPScxMDAlJy NtlHacUO4tDg8jSQPjQ LUlkWjmuEHnNmCvm0wv OBZmXWctBL7frGuuB8A kaWH0GJFyb3p5Bg98K2 6wQ9JbdJS+RKCsdRB7a ZW7sS8xZoBoYaA1DFdf Z565MyQovPEtYxiau7p fp9nuwOd4XzKyVHXhtf VvbXpiHNT6o3HpOs80A 29sIHdpZHRoPSIyMCUi WGGelUizus6iaM1rQe5 +EQOakAL1pLA3sJ5sCq LtEyG8WZxjY921YsEbg AAdHfuuC45fI8TucCF+ ZGEbExh0GKRqqZlbQF4 wqWOgTIkvTp9dAFB3Vu JzLgNlCSbsI2JzSQIli rtgzqekdDC8CXVqMJKr vE68Zy6jcMbiMd9qRGA rOCY6CGBxpXNtB5QpfF 9aSbMpUBPiXIFdS6Exp KIbCNvrD094VAjzSkW8 YMGhqlDdL0SyBIHfeLq xXsF9u0S4Me4VyDjiiL BvEH4gNaYlKDa8I2FpP dx2OGKxyIuoAM0icACe QWvaNh7nkEckbJisYH3 aCCMvtonwf007IoEol0 ywOCNlyUYzGXcbWUJ5L 29gd0X4PTRyWFPjCYZ3 mWW1pF9xiVsoppvmkIL mdDsgdmVydGljYWwtYW itM033TKOydEroUzNOK fv0J2WgLdb5COVdiTjo EL8ebGHlPUgeIl4imQh peNajCY2fPRBghoeqs1 90UpZcq8scTXStvYVrU EmhQSA4U26mk4J1DKDw NFQeNKZ0xLB5gE7qgPr nbjogbGVmdDsgdmVydG ajLFyxVWrbY878PIMki CfpEi1QMyg9L6EgMkj8 QODvxYmbKK4unCBmOKn iGa3vhZqqvAqrJQ7iLI Zrcrfwu842RaUra9odB VNqnMAaUBvxHLT6N20u b8R0GRLoLSEnYSJ3dHX 2uS3llKntewsdaGBgqL sgdmVydGljYWwtYWxpZ 246IHRvcDsnPlBheWVy OjwvdGQ+RM07qv78F3S vXztqXdh3RBCpPEW7fH V1oH6jVWIpEGbtc2S0y SZ8E0EwsdPenq9we3cn YXBz (more content not included)... Normal [facility] CHEMISTRYOrdered By: SYSTEM SYSTEM on 09-24-2021 [...] rate/Area] mL/min/1.73 m2 Normal >=59mL/min/1. 73 m2 [facility] Chem S GFR/1.73 sq M.predicted among non-blacks MDRD (S/P/Bld) [Vol rate/Area] mL/min/1.73 m2 Normal >=59mL/min/1. 73 m2 [facility] Chem S Globulin (S) [Mass/Vol] 2.7 g/dL [...] 09-24-2021 Albumin [Mass/Vol] 4.3 g/dL Normal 3.3-5.0 [facility] Comment on above: Performed By: #### 2 149115, [id number], [id number] #### [facility] [address] [place] [address] Albumin/Globulin (S) [Mass conc ratio] 1.6 Normal 1.1-2.2 [facility] Comment on above: Performed By: #### 2 314868, [id number], 7766811 #### [facility] [address] [place] [address] ALP [Catalytic activity/Vol] 52 Int._Unit/L Normal 21-98 [facility] Comment on above: Performed By: #### 2 998051, [id number], 3518971 #### [facility] [address] [place] [address] ALT No additional P-5'-P [Catalytic activity/Vol] 25 Int._Unit/L Normal 6-46 [facility] Comment on above: Performed By: #### 2 264040, [id number], 9381711 #### [facility] [address] [place] [address] Anion gap [Moles/Vol] 11 mmol/L Normal 6-16 [facility] Comment on above: Performed By: #### 2 880522, [id number], 2799790 #### [facility] [address] [place] [address] AST [Catalytic activity/Vol] 22 Int._Unit/L Normal 5-43 [facility] Comment on above: Performed By: #### 2 755108, 95676304, [id number] #### [facility] [address] [place] [address] Bilirubin [Mass/Vol] 1.3 mg/dL High 0.0-1.1 [facility] Comment on above: Performed By: #### 2 523821, 19746534, 7756860 #### [facility] [address] [place] [address] Calcium [Mass/Vol] 9.1 mg/dL Normal 8.9-11.1 [facility] Comment on above: Performed By: #### 2 149224, 63627395, 6389535 #### [facility] [address] [place] [address] Chloride [Moles/Vol] 102 mmol/L Normal 101-111 [facility] Comment on above: Performed By: #### 2 665613, 02754357, 5312772 #### [facility] [address] [place] [address] CO2 [Moles/Vol] 26 mmol/L Normal 21-31 [facility] Comment on above: Performed By: #### 2 322260, [id number], 8384168 #### [facility] [address] [place] [address] Creatinine [Mass/Vol] 0.6 mg/dL Normal 0.5-1.3 [facility] Comment on above: Performed By: #### 2 870872, 17511188, 8937546 #### [facility] [address] [place] [address] Globulin (S) [Mass/Vol] 2.7 g/dL Normal 1.4-4.0 [facility] Comment on above: Performed By: #### 2 279695, 48783208, 8098985 #### [facility] [address] [place] [address] Glucose [Mass/Vol] 107 mg/dL Normal 55-199 [facility] Comment on above: Result Comment: If t his glucose result represents a fasting glucose, interpretation should refer to the following reference range: 55-99 mg/dL Performed By: #### 2 713795, 75605165, 1360519 #### [facility] [address] [place] [address] Potassium [Moles/Vol] 3.8 mmol/L Normal 3.5-5.3 [facility] Comment on above: Performed By: #### 2 047809, 12106807, 6605394 #### [facility] [address] [place] [address] Protein [Mass/Vol] 7.0 g/dL Normal 6.0-7.8 [facility] Comment on above: Performed By: #### 2 751054, 25693417, 2549265 #### [facility] [address] [place] [address] Sodium [Moles/Vol] 135 mmol/L Normal 135-145 [facility] Comment on above: Performed By: #### 2 965615, 75951412, 8719677 #### [facility] [address] [place] [address] Urea nitrogen [Mass/Vol] 15 mg/dL Normal 5-21 [facility] Comment on above: Performed By: #### 2 583721, 16243123, 1792412 #### [facility] [address] [place] [address] Urea nitrogen/Creatinine [Mass ratio] 25 No Units High 10-20 [facility] Comment on above: Performed By: #### 2 137340, 06910289, 1221599 #### [facility] [address] [place] [address] Consent for Treatmenton 08-31 Consent for Treatment [id number] [id number]:127 Normal [facility] Lipid Panelon 09-24-2021 Cholesterol [Mass/Vol] 245 mg/dL High 120-200 [facility] Comment on above: Performed By: #### 2 543254, 02956429, 0357613 #### [facility] [address] [place] [address] Cholesterol in HDL [Mass/Vol] 50 mg/dL Invalid Interpretation Code [facility] Comment on above: Result Comment: HDL > or equal to 60 mg/dL: Low cardiovascular risk HDL < 40 mg/dL : High cardiovascular risk Performed By: #### 2 815521, 89637149, 6839120 #### [facility] [address] [place] [address] Cholesterol in LDL [Mass/Vol] 174 mg/dL High <=129 [facility] Comment on above: Performed By: #### 2 305920, 83551994, 4360413 #### [facility] [address] [place] [address] Cholesterol in VLDL [Mass/Vol] 18 mg/dL Normal 7-40 [facility] Comment on above: Performed By: #### 2 328700, 90259730, 5006757 #### [facility] [address] [place] [address] Triglyceride [Mass/Vol] 89 mg/dL Normal <=149 [facility] Comment on above: Performed By: #### 2 670898, 48977778, 7396454 #### [facility] [address] [place] [address] Physician Orderon 09-24-2021 Physician Order [id number] C#1.00CD:127 Normal [facility] eGFRon 09-24-2021 GFR/1.73 sq M.predicted among blacks MDRD (S/P/Bld) [Vol rate/Area] mL/min/{1.73_m2} Normal >=59 [facility] Comment on above: Order Comment: Order added by Discern Expert. Result Comment: eGFR is race adjusted. AA=. Performed By: #### 2 553850, [id number], 1672282 #### [facility] [address] [place] [address] GFR/1.73 sq M.predicted among non-blacks MDRD (S/P/Bld) [Vol rate/Area] mL/min/{1.73_m2} Normal >=59 [facility] Comment on above: Order Comment: Order added by Discern Expert. Result Comment: Proofing Machine Operator alexy kidney disease could be indicated at eGFR's of less than 60 mL/min/1.73m2. Kidney failure is indicated at less than 15 mL/min/1.73m2. Performed By: #### 2 731502, [id number], [id number] #### [facility] [address] [place] [address] Coding Summary.on 11-28-2020 Coding Summary. [id number] GGp9rRi+PGhlYWQ+PE1 KUBUuV38cvJUzrR9GN7 wYCN2EHSEEKYFLBB0NN B2qpSM7WRalQ8FtpfEg AthgvQYoZJ21QRl2YCU 9fJofAWoxlO1gfLBzJ6 l5EvXkDF13pI66IUftW CFpMoY1IjEtyaorwGYp N2qlSzOnhJVtCmr+PHR hYmxlIHdpZHRoPScxMD HvOoCybXpiHG2oHy9bS GVyLWNvbGxhcHNlOiBj j8wgLUYfKNkfWM9wyVv uD2OqoZV0TWAym6d7Mi 48dHI+QNHqFYV6uQgoS Gxoi283OrKsw0ohVBC7 iTCsQCieMKC7L45zv7J 2DNKbFLEvAQU1rFW5bN 4vfAxyfcfqZ2ZtzIOsG mX5EVX7wCAkzD9irFto jeahlZ9lSgd+Z82UYR1 EDTCIGB9ISby5N2GyEh wvdHI+DG83EKJwMY50l OTdnMOpe4xblLd1NgBr CVDiTNB5aVtcREiie9L rJKUhP55xiLUgq2P8QX SuuLqcqDJmEnDgkPT3o Q1gTKyrjrqnt9yiacca Wtyzw3wekm32cZ82A39 uHHkrOKXmGDR1CZOzHN MmxXbgwx3suS7cMm4+I Pvly2ljn3ocyJf4ZbJn IAAaetFywFfoLPS2e0R vCf41B7SdbJfmr2RvAe e0pr05wCPva2C1pIV9R MjqADVlzD4iSVwkSdQ0 WUSdAyOgwU64xTQoIKq rYv0snSrjlVkuOL6eLC KxmjtvDVEyoJ2lQQHrf SLhfXesHQ4qZTKiqfwl t502KiKeASA0YWWbgII lX0ZftE2mRsIsTHWfHT NxT4YbgCUdCPnfQ594H CtiSdG7ZABjfmXdU7Gy OPHdvFuxDaC6x9C6Nw8 Xe5CpwkycZHA8GUvhAQ O6YfUsCtWfSoW0U8GwI il4XJXvjDadSC3iY8Br XWHmoehkfjaugJU7IES sPRTxtH26sWGeHBkqNw 1hq7J3n024BZMxURZno L50Fy5mpXwcLMRvuCRD uD1wdmvla5zmpwnfZtM eKBTySTa1MIy9JNMqsN jbEqBxTCC9MhU4AAK5x BLlbC0utMipgriniY0u Oyc+M64npY3eHDN6RMC 4xxefOGRzunDyFV96RB 76G7UuFspgvHFoeJR+P NObdaFqyHmlAK8hVtDa z9qej0QfSAzsK5NtNWL cTUdcQxq5WISpIQZ0qP M5nF7aHVTpJIvri3T7t AC1Z2GggxExwb7vw5nz DSFkIVqjN04gxWJka5J 7YIYiiLP5XHCsbMyrGl PqfI91Vut+PGNvbGdyb 2VqVqylg7ltu9yfqAi2 IjMwJSIgdmFsaWduPSJ 1g3RbTu44I75eCGfqUP RoPSIxNSUiIHZhbGlnb o2hjG1mLn1+PGNvbCB3 dLU2cC8wDFFsZpS2AXk rW608KrVzcVVtEmlxo3 biz0xwhSk2TwGbDJYgc wSkvTmgZYS4t0YcKu89 H92wZHnwGPQgMPVkXPM uTDQhzUpmet0fnI1aBg 8+SH2ca5keqq35rU53s HI+XPXmCBH5nSeiFXvz SSTzsJ1pQCqaRqB5EKG dFfImxA64zTZoDWhxSg 6jePddsOewSY8pRPSvt auiy258IwVkm9zcCVKb dQVoHCesZIQ0S12wq8P 6PIPbUUIhMOQ1zKD7lF 1hbGlnbjogbGVmdDsgd sFztAsmNMeoXMclA986 IHRvcDsnPlBhdGllbnQ mWxKmQXb9T4JiJwg6OL HxbJasXH7gwQFlPAmgM g2qgDmfrTdfPO0vKFMc zmhoj658SrOcn6spFWJ zdSMfUKfmBNT4U08vk6 L3NQZaIFUcVSI8mEJ6w Y8usGamjftlyMYbbUnf vkWwjPgoJNpuLFmjZ94 6IHRvcDsnPkJpcnRoIE WtjBF2GY06HK49yHFng 8W3sGW7V9GcNPFqhdmy pzwamQR5JWSgGYYamJ2 0Zj3viQfoMa3xNDQaMP F9RNGdbQJlT2MyqN6nN yGjKZJbMOWzU5IviTAq TUioU839BYkmTnS8PCK gwoWuU0DaUYEooKbpQb Y5g4S2Dg3UO1R1GU78N W32cUMhw0L7gNE3R4Hr ZFEyaycmyaaobFQ3VBD qHBNbeE97Bg0cqDolHx 6zKLLrEFU5WGWplPKfO 0GozB9zIhGsSKKzVJOd N7IunDFjNRboV952DNb tToC2HHNgekYyG7BnDH PplNzaKaW7d9T0Hr7CF Wv1VQ37KR34lVXjf6Y4 gKB7O1VwFTQpyuqvatw kiJH9BYGyAYOvgL38Lt 7nbIhdUp7fXZGkHPX1E XMlaVZqE9GyqE8pBxQx VGTxIEYgG5XrpMTlQYr bE759VBjxVpJ0ZFMzan VoR5SjFGNmdZzmYuD6m 1L1Nr7JRGYbEE86ITW2 pEF4CR72BZ94H5NkMjb vdGFibGU+PHRhYmxlIH dpZHRoPScxMDAlJyBzd LhrOW2mVy2iNOTbVSAf iYqksSHkYbMvt8fmSKD dPUonVI9kfRidM5QgdJ Q7FEFff3b3Qi56D10eQ 3JvdXA+INJodKA9xZM1 pB2kZvXbNlA7FDuwO66 7WfEcpMIgVfboa2dkc0 ojuNq3RiE3MVMvvkUxe XbnKNL4m0VpZo89S18n IHdpZHRoPSIxNSUiIHZ wjCqokn3ftH3zOn4+PG NojVH8iZY6eX6uDtGpK oI9DPqlW159IdFssDYm Ggvrb1uxx9qeyYl3GlC nYFIazbAkoDopPTH1k0 IcQn45B4KbtDvgi0OmW he6ml76vLBck3B6mTD1 A0NdTDHjcuiprLXcrGf fDZ5nNUXvviuqEMAqrS 8hRMVmB7o6AfZkSyZ8A FxdC8EirfN6SXXbdLIp AMmkBUG8Y30lj7N0OFP tBBWwEME5lTE0xU5xwB lnbjogbGVmdDsgdmVyd HadHNgkDUkdG657XHTj fGkfUAOelE2oVOLqrDJ vtRftRS4gIQJakolkIs tFTExFWSwgQlJFTkRBI Rm5S9WcSgb0WZEvrSmd TJ7qpXUsOVvaXu0snAf ffYxyGC9pGXLbpiwjWM PomP0rKUMbjXKjtBueS F5vHJCelajuf581HeDf CTH2YWArkZLjA6YgvW9 vBlUvIWXjVUApK9MjeV KoLSiyF734VGyuPlW0S DRefyRhF6OcTKWviQxl DpJ1w7D5Ph1vQf3aEX6 sDHE5WB10EC43dAXje3 N9yOV5C3WyOLGuqgpik kknxPL7HINdQURzuY80 eLLmJPdzNg8to1D8j68 5IWPsXYGvkL54Lo7jfS ikFGYeaNBGkE0kveave 6nebezwOwLfQOIuVBq1 ZZq8QTXntCxjRgAcJZK 7RoH4VSM4aUSnaT2yzV uutsvaoH9xLtd+NTYgW USpmtS5T6SgBvh2NNYr gHhcJK7apJWxBPwoKm6 qlUmjgQtmQQ8bAOTpil zeKEFqeU3sVKVgmOXdq UvnUQ2aCGUfinidb674 MeQqRVJ8BQZopBMgN6U izN3lXuUqAKSyBTVuS6 GarVBkMOyyT765SVcvY dO8VCAcbiKuA0UyFCQd sDemAfF5g0G4Vc1XMB2 pjVY2T7HzGzz6POQutG tlOV2tqBSqWCxrVm3vz VkevKrsQL8vQMDuowba AHDoyC4rQMJrxWVyhUa qNG0aEAVsupggy357Ui QpOHE2EEWcdXXdI7Lum Q4yIrUtXYJxOLEhB6Yj uYBpMRaaA277LVzdOmE 4MDPsmiAaL3IkZDEvhW goAxU9w9V1Vn9XxIEqX HGsOP63HF24LE39R2Ru PjwvdGFibGU+PHRhYmx lIHdpZHRoPScxMDAlJy BxxIpjXG5gOd8dNKDtP FSshGopxDJqGoTzk9qf AVJbJIynKX0ivVcdL4H mlFF7VCAkt5r9Ti48S9 9jQ8PudCC+VDDotKE1k LY0kO6xXhQhEwZ8SNja L209MvGacTRrInfgi7i mo2iwhHb3FxHgNLBwly MjiMcyXGT8j4VfMp74W 29sIHdpZHRoPSIyMCUi TEFexZamrr7brT9hLs5 +QVWbpYF0zGJ4pW3nTw SrYoG3RKbzJ586MqLdh TSqAmhhA37rF9WbrOX+ EOHgRyk2POBapKcgAP5 qyBOeUDwmLx2oMTQ1Sh JmTzXfVWlqP6AgPBZup lphtiueaUI1FVQiNJJp mB59Ww0ysBllTv0uZIV pLUF1NHUxqGDdJ1WskV 0hFaFtCFGmFCLrC4Yfl QMlNYtbB386BJaqPhJ6 MVElmsQsP0SoWYPklAq yJgB5j7R7Jh7LdVvioW PlPG8uPwLbLMu4S4YfA hh9SJXelClmED7hoVMh EOpbPk4lrSylsBjoKH9 vYUVlwdukw298LyZug1 neFENftSBaZAqpDBI2T 49xs7N6VEMlTHLkSAI0 gRH2cI2mpSypdviyyIG mdDsgdmVydGljYWwtYW otR938TJQtrGhpNyMQX tz2A7OhCkl2YAWppPvf VV4sqOQeEWjeHv2daOi boWcxBS5wUKIiqyeup9 95AlXih1gxRSZxvQGqL NqhMNI3B73ep4B3UQDe DSQuLKE5tNX4hH9xoGq nbjogbGVmdDsgdmVydG drWOssYMqcY691BYZoe LveOe0JHdy5X9WnUgm8 NIWzkRqiLH9pbRRuXRo gNs1zsAmkpXdmTH4gXG Sqhisbl534HeTxw4tlF ZBmjAUpLUswLPM9C47n j2O8CDRrNXKiGBZ6vNT 8pO4ixAsckpqkuXLwjX sgdmVydGljYWwtYWxpZ 246IHRvcDsnPlBheWVy OjwvdGQ+CG46sz89H2V lNlwfEbh1OAJjSPO9xF U1kG3rIUFeIMvah5F0j WI2G8CnqtNsvv9ur0mb YXBz (more content not included)... Normal [facility] Auto Diffon 11-19-2020 Basophils/100 WBC (Bld) 0.7 % Normal 0.0-2.0 [facility] Comment on above: Order Comment: Order Added by Discern Expert. Performed By: #### 2 [id number], [id number] #### [facility] [address] [place] [address] 27721 Basophils/Leukocytes Auto (Bld) [Pure # fraction] 0.0 E9/L Normal 0.0-0.2 [facility] Comment on above: Order Comment: Order Added by Discern Expert. Performed By: #### 2 [id number], [id number] #### [facility] [address] [place] [address] 90352 Eosinophils/100 WBC (Bld) 9.0 % High 0.0-8.0 [facility] Comment on above: Order Comment: Order Added by Discern Expert. Performed By: #### 2 [id number], [id number] #### [facility] [address] [place] [address] 33223 Eosinophils/Leukocyt es Auto (Bld) [Pure # fraction] 0.5 E9/L Normal 0.0-0.5 [facility] Comment on above: Order Comment: Order Added by Discern Expert. Performed By: #### 2 [id number], [id number] #### [facility] [address] [place] [address] 04791 Lymphocytes/100 WBC (Bld) 30.0 % Normal 14.0-50.0 [facility] Comment on above: Order Comment: Order Added by Discern Expert. Performed By: #### 2 [id number], [id number] #### [facility] [address] [place] [address] 37282 Lymphocytes/Leukocyt es Auto (Bld) [Pure # fraction] 1.7 E9/L Normal 1.0-4.0 [facility] Comment on above: Order Comment: Order Added by Discern Expert. Performed By: #### 2 [id number], [id number] #### [facility] [address] [place] [address] Monocytes/100 WBC (Bld) 7.6 % Normal 4.0-14.0 [facility] Comment on above: Order Comment: Order Added by Discern Expert. Performed By: #### 2 [id number], [id number] #### [facility] [address] [place] [address] Monocytes/Leukocytes Auto (Bld) [Pure # fraction] 0.4 E9/L Normal 0.2-1.0 [facility] Comment on above: Order Comment: Order Added by Discern Expert. Performed By: #### 2 [id number], [id number] #### [facility] [address] [place] [address] 24835 Neutrophils/100 WBC (Bld) 52.7 % Normal 36.0-75.0 [facility] Comment on above: Order Comment: Order Added by Discern Expert. Performed By: #### 2 [id number], [id number] #### [facility] [address] [place] [address] 08930 Neutrophils/Leukocyt es Auto (Bld) [Pure # fraction] 2.9 E9/L Normal 2.0-7.5 [facility] Comment on above: Order Comment: Order Added by Discern Expert. Performed By: #### 2 [id number], [id number] #### [facility] [address] [place] [address] 35512 CBC w/ Auto Diffon Erythrocyte distribution width (RBC) [Ratio] 12.8 % Normal 10.9-14.2 [facility] Comment on above: Performed By: #### 2 [id number], [id number] #### [facility] [address] [place] [address] 44739 Hematocrit (Bld) [Volume fraction] 42.2 % Normal 34.0-46.0 [facility] Comment on above: Performed By: #### 2 [id number], [id number] #### [facility] [address] [place] [address] 73613 Hemoglobin (Bld) [Mass/Vol] 14.4 g/dL Normal 12.0-16.0 [facility] Comment on above: Performed By: #### 2 [id number], [id number] #### [facility] [address] [place] [address] 17641 MCH (RBC) [Entitic mass] 30.5 pg Normal 27.0-34.0 [facility] Comment on above: Performed By: #### 2 [id number], [id number] #### [facility] [address] [place] [address] 77882 MCHC (RBC) [Mass/Vol] 34.2 g/dL Normal 31.4-36.0 [facility] Comment on above: Performed By: #### 2 [id number], [id number] #### [facility] [address] [place] [address] 30763 MCV (RBC) [Entitic vol] 89.3 fL Normal 80.0-100.0 [facility] Comment on above: Performed By: #### 2 [id number], [id number] #### [facility] [address] [place] [address] 22011 Platelet mean volume (Bld) [Entitic vol] 8.7 fL Normal 6.4-10.8 [facility] Comment on above: Performed By: #### 2 [id number], [id number] #### [facility] [address] [place] [address] 75089 Platelets (Bld) [#/Vol] 178.0 E9/L Normal 150.0-500.0 [facility] Comment on above: Performed By: #### 2 [id number], [id number] #### [facility] [address] [place] [address] 27119 RBC (Bld) [#/Vol] 4.7 E12/L Normal 4.3-5.9 [facility] Comment on above: Performed By: #### 2 [id number], [id number] #### [facility] [address] [place] [address] 56382 WBC corrected for nucl RBC Auto (Bld) [#/Vol] 5.5 E9/L Normal 4.0-11.0 [facility] Comment on above: Performed By: #### 2 [id number], [id number] #### [facility] [address] [place] [address] Consent for Treatmenton 10-31 Consent for Treatment [id number] 3E#1.00CD:127 Normal [facility] Physician Orderon 11-19-2020 Physician Order [id number] 30#1.00CD:127 Normal [facility] Vital Signs Date Time Vital Sign Value Performing Clinician Mallorie koo 07-19-2024 15:02-0500 Body mass index (BMI) [Ratio] 28.57 kg/m2 Mirna Nataprawira DO Work Phone: [facility] 07-19-2024 15:02-0500 Body weight 80.29 kg Mirna Nataprawira DO Work Phone: [facility] 07-19-2024 15:02-0500 Diastolic blood pressure 78 mm[Hg] Mirna Nataprawira DO Work Phone: [facility] 07-19-2024 15:02-0500 Systolic blood pressure 126 mm[Hg] Mirna Nataprawira DO Work Phone: [facility] 05-06-2024 08:22-0500 Body height 167.6 cm Cleopatra SADLER Work Phone: [facility] 05-06-2024 08:22-0500 Body mass index (BMI) [Ratio] 28.5 kg/m2 Cleopatra SADLER Work Phone: [facility] 05-06-2024 08:22-0500 Body temperature 98.4 [degF] Cleopatra SADLER Work Phone: [facility] 05-06-2024 08:22-0500 Body weight 80.11 kg Cleopatra SADLER Work Phone: [facility] 05-06-2024 08:22-0500 Diastolic blood pressure 82 mm[Hg] Cleopatra SADLER Work Phone: [facility] 05-06-2024 08:22-0500 Heart rate 85 /min Cleopatra SADLER Work Phone: [facility] 05-06-2024 08:22-0500 SaO2% (BldA) [Mass fraction] 98 % Cleopatra Bowie PA Work Phone: [facility] 05-06-2024 08:22-0500 Systolic blood pressure 124 mm[Hg] Cleopatra Bowie PA Work Phone: [facility] Encounters Encounter Date Encounter Type Care Provider Facility Start: 02-23-2025 amb[place] [address] Facility:[facility] Start: 08-11-2024 End: 08-11-2024 Refill [...] Start: 06-08-2024 End: 06-08-2024 ambulatory Cheko SADLER Facility:[facility] Start: 05-17-2024 End: 05-17-2024 Telephone encounter Cleopatra [...] tympanic membrane Start: 01-20-2023 End: 01-20-2023 ambulatory [facility] Work Phone: Start: 01-20-2023 End: 01-20-2023 Patient encounter procedure [facility] Work Phone: Start: 09-24-2021 End: 09-24-2021 Patient encounter procedure Emma Buchanan [facility] Procedures Date Procedure Procedure Detail Performing Clinician [...] EST Office Visit [facility] [address] [address] Mirna Pisano, [address] [address] [facility] Start: 11-19-2024 Screening for malign ant neoplasm of colon [facility] Start: 07-19-2024 End: 07-19-2024 Patient encounter procedure 07/19/2024 3:00 PM EST Office Visit [facility] [address] [address] Mirna Pisano, [address] [address] Arrived [facility] Comment on above: Arrived Start: 06-14-2024 End: 06-14-2024 Patient encounter procedure 06/14/2024 2:15 PM EST Office Visit [facility] [address] [address] Mirna Pisano DO [address] [address] [facility] Start: 05-06-2024 End: 05-06-2025 CBC W Auto Differential panel - Blood CBC and differential Lab Routine High-renin essential hypertension (CMS/HCC) Mixed hyperlipidemia (CMS/HCC) Expected: 05/06/2024 (Approximate), Expires: 05/06/2025 [facility] Comment on above: Expected: 05/06/2024 (Approximate), Expires: 05/06/2025 Start: 05-06-2024 End: 05-06-2025 Comprehensive metabolic 2000 panel - Serum or Plasma Comprehensive metabolic panel Lab Routine High-renin essential hypertension (CMS/HCC) Mixed hyperlipidemia (CMS/HCC) Expected: 05/06/2024 (Approximate), Expires: 05/06/2025 [facility] Comment on above: Expected: 05/06/2024 (Approximate), Expires: 05/06/2025 Start: 05-06-2024 End: 05-06-2025 Lipid 1996 panel - Serum or Plasma Lipid panel Lab Routine Mixed hyperlipidemia (CMS/HCC) Expected: 05/06/2024 (Approximate), Expires: 05/06/2025 [facility] Comment on above: Expected: 05/06/2024 (Approximate), Expires: 05/06/2025 Start: 05-06-2024 End: 07-07-2025 MG Breast - bilateral Screening Bilateral screening mammogram Imaging Routine High-renin essential hypertension (CMS/HCC) Expected: 05/06/2024 (Approximate), Expires: 07/07/2025 [facility] Comment on above: Expected: 05/06/2024 (Approximate), Expires: 07/07/2025 Start: 05-06-2024 End: 05-06-2025 THINPREP TIS PAP AND HPV MRNA E6/E7 WITH REFLEX TO HPV 16,18/45 THINPREP TIS PAP AND HPV MRNA E6/E7 WITH REFLEX TO HPV 16,18/45 Pathology and Cytology Routine Screening for cervical cancer Well woman exam with routine gynecological exam Expected: 05/06/2024 (Approximate), Expires: 05/06/2025 [facility] Work Phone: Comment on above: Expected: 05/06/2024 (Approximate), Expires: 05/06/2025 Start: 06-21-2022 Screening for malign ant neoplasm of breast Mammogram [facility] Start: 12-03-1984 Screening for malign ant neoplasm of cervix Pap Smear [facility] Start: 1965 Screening for malign ant neoplasm of colon [facility] Immunizations Immunization Date Immunization Notes Care Provider Fa constance 05-13-2021 Covid (Moderna) [facility] 07-27-2020 Covid (Moderna) [facility] 06-29-2020 Covid (Moderna) [facility] 05-13-2018 influenza, seasonal, injectable [facility] 06-23-2001 hepatitis A and hepa titis B vaccine [facility] Payers Date Payer Category Payer Unknown [id number] 2024 Self-pay [id number] 2022 Private Health Insurance [facility] [id number] 2022 Unknown [id number] 1965 Unknown [id number] 1965 Unknown [id number] Unknown ANTHEM [id number] Unknown [id number] Unknown H EMP HLTH D O NOT USE [id number] Unknown [id number] Unknown [id number] Unknown [id number] Social History Date Type Detail Facility Start: 05-28-2019 End: 01-20-2023 Tobacco smoking status Ex-smoker (finding) [facility] Start: 01-07-2023 End: 07-19-2024 [facility] Start: 1965 Sex Assigned At Female [facility] History of tobacco use Current smoker [...] Diagnosis Date History of being hospitalized 05/31/2019 [facility]- Influenza A/pneumonia Past Surgical History: Procedure [...] 2 Para 1 Para Allergies Allergen Reactions [employer] Anaphylaxis Doxycycline Hives and Photosensitivity Erythromycin [...] DNA test positive documented in this encounter [facility] 06-13-2024 Telephone encounter Note completed [facility] 06-13-2024 Miscellaneous Notes completed documented in this encounter [facility] 05-17-2024 Telephone encounter Note Discussed pap test with patient, pap was normal however HPV was positive, patient had history of abnormal pap and discussed referral to obgyn hospitalist physician for further eval, based on age and criteria, patient agreed will put in referral Referral to obgyn hospitalist physician in [place] [facility] 05-17-2024 Miscellaneous Notes Discussed pap test with patient, pap was normal however HPV was positive, patient had history of abnormal pap and discussed referral to obgyn hospitalist physician for further eval, based on age and criteria, patient agreed will put in referral Referral to obgyn hospitalist physician in [place] documented in this encounter [facility] 05-06-2024 History of Presen t illness [...] mg, Oral, Daily ALLERGIES: Allergies Allergen Reactions [employer] Anaphylaxis Doxycycline Hives and Photosensitivity Erythromycin [...] antibiotic prescription will be sent to [facility] in [place] to manage the infection. She is advised [...] be printed for her to complete at [facility]. Assessment/Plan Problem List Items Addressed This Visit [...] note No data available for this section [facility] Evaluation note No assessment inform ation available [facility] Work Phone: Evaluation note Diagnosis High-renin essential hypertension (CMS/HCC)- Primary Unspecified essential hypertension Screening for cervical cancer Screening for malignant neoplasm of the cervix Well woman exam with routine gynecological exam Routine gynecological examination Mixed hyperlipidemia (CMS/HCC) Mixed hyperlipidemia Breast cancer screening by mammogram Non-recurrent acute suppurative otitis media of right ear without spontaneous rupture of tympanic membrane documented in this encounter [facility] HealthcareEvaluation note* Diagnosis 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- Primary documented in this encounter [facility]* Diagnosis Mixed hyperlipidemia (CMS/HCC) Mixed hyperlipidemia documented in this encounter [facility] Healthcare[facility] note* Diagnosis Encounter to discuss test results- Primary Other specified counseling 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 documented in this encounter [facility] Healthcare[facility] note* Diagnosis Hypokalemia- Primary Hypopotassemia documented in this encounter [facility] Discharge instructions No data available for this section [facility] Summary Purpose Family History No Family History Records FoundNo Family History Records FoundNo Family History Records FoundNo Family History Records Found Advance Directives No Advanced Directives Records FoundNo Advanced Directives Records FoundNo Advanced Directives Records FoundNo Advanced Directives Records Found Chief Complaint and Reason for Visit Chief Complaint SCREENING Additional Source Comments INFORMATION SOURCE (unrecogn ized section and content) DATE CREATED AUTHOR 10/04/2021 [facility] DATE CREATED AUTHOR AUTHOR'S ORGANIZ ATION 05/14/2024 [facility] DATE CREATED AUTHOR AUTHOR'S ORGANIZ ATION 07/21/2024 [facility] EPIC DATE CREATED AUTHOR AUTHOR'S ORGANIZ ATION 02/18/2025 [facility] Care Teams (unrecognized sec tion and content) Team Status: Active Member Role Status Dates JAMIE BUCHANAN Family Provider Active EMMA BUCHANAN Primary Care Provider Active Team Status: Inactive Member Role Status Dates DEWAYNE VALENTIN Primary Care Provide r, Attending Provider, Referring Provider Active Student Education Specialist Relationship Specialty Start Date End Date Emma Buchanan, DO PCP - General Family Medicine 10/07/22 Student Education Specialist Relationship Specialty Start Date End Date Emma Buchanan Germain, DO PCP - General Family Medicine 10/07/22 Student Education Specialist Relationship Specialty Start Date End Date Emma Buchanan Germain, DO PCP - General [facility] Medicine 10/07/22 Student Education Specialist Relationship Specialty Start Date End Date Tyree Sheppard MD [address] [place] [address] PCP - [facility] 07/19/24 Student Education Specialist Relationship Specialty Start Date End Date Tyree Sheppard MD [address] [place] [address] PCP - [facility] 07/19/24 Goals (unrecognized section and content) [...] BE BASED ON THE PRIMARY CLINICAL RECORDS. [employer] provides no warranty or guarantee of the accuracy or completeness of information in this document.
== END | disposition home or self-care (01) ==
DX: Z12.31 Encounter for screening mammogram for malignant neoplasm of breast (principal)
CPT/HCPCS: 77063; 77067